=== PATIENT | male | born 1955 | race Caucasian/White ===

== ENCOUNTER → 2016-08-08 | Outpatient (CLI) | payer OTHER ==
[2016-08-08 10:13] LABS: ALBUMIN 3.6 GM/DL (3.2-5.2); ALBUMIN/GLOBULIN RATIO 0.92 (1.00-1.93); ALKALINE PHOSPHATASE 92 U/L (45-117); ALT/SGPT 36 U/L (12-78); ANION GAP 7 MEQ/L (8-16); AST/SGOT 21 U/L (15-37); BILIRUBIN,TOTAL 0.4 MG/DL (0.2-1.0); BLOOD UREA NITROGEN 18 MG/DL (7-18); CARBON DIOXIDE LEVEL 29 MEQ/L (21-32); CHLORIDE LEVEL 106 MEQ/L (98-107); CHOLESTEROL LEVEL 151 MG/DL (<200); CREATININE FOR GFR 0.97 MG/DL (0.70-1.30); GLOMERULAR FILTRATION RATE > 60.0 (>49); GLUCOSE, FASTING 107 MG/DL (80-110); MAGNESIUM LEVEL 1.8 MG/DL (1.8-2.4); POTASSIUM SERUM 4.8 MEQ/L (3.5-5.1); SODIUM LEVEL 142 MEQ/L (136-145); TOTAL PROTEIN 7.5 GM/DL (6.4-8.2); TRIGLYCERIDES LEVEL 216 MG/DL (<150)
== END ==
LOC: M WUC 08:11
PROVIDERS: ATTEND Nurse Practitioner Family
DX: E78.2 Mixed hyperlipidemia (principal); K21.9 Gastro-esophageal reflux disease without esophagitis; E55.9 Vitamin D deficiency, unspecified; I10 Essential (primary) hypertension

== ENCOUNTER → 2017-02-08 | Outpatient (REF) | payer OTHER ==
[~2017-02-08] MED LIST: ASPI81TA85 PO; ATOR80TA59 PO; CEFD1CAP8 PO; CHLO25TA PO; CLOT10TR MT; CORE25TA PO; D 50CAP PO; DRIS50002 PO; FOSI40TA PO; IPRASOL4 NEB; K-TA10TA2 PO; LIPI20TA PO; LISI10TA4 PO; MUCI600T31 PO; MULT1TAB10 PO; NICO14PA TD; OMEP10CASR PO; OMEP20TA PO; PARO40TA3 PO
[2017-02-08 15:24] LABS: BASO % 0.2 % (0.0-1.0); EOS % 0.1 % (0.0-3.0); LARGE UNSTAINED CELL # 0.2 K/mm3 (0.0-0.4); LARGE UNSTAINED CELL % 1.2 % (0.0-4.0); LYMPH # 0.6 K/mm3 (1.5-4.5); LYMPH % 3.4 % (24.0-44.0); MEAN CORPUSCULAR HEMOGLOBIN 32.2 pg (27.0-33.0); MEAN CORPUSCULAR HGB CONC 34.5 g/dl (32.0-36.5); MEAN CORPUSCULAR VOLUME 93.2 fl (80.0-96.0); MONO # 0.7 K/mm3 (0.0-0.8); NEUTROPHILS # 10.8 K/mm3 (1.8-7.7); NEUTROPHILS % 89.1 % (36.0-66.0); PLATELET COUNT, AUTOMATED 166 k/mm3 (150-450); RED CELL DISTRIBUTION WIDTH 13.1 % (11.5-14.5); WHITE BLOOD COUNT 12.1 K/mm3 (4.0-10.0)
[2017-02-11 18:14] LABS: Lyme Disease IgG/IgM Antibodie <0.91 ISR (0.00-0.90); Lyme Disease IgM Ab Quantitati <0.80 index (0.00-0.79)
== END ==
LOC: M SFHCPLAZ 11:28
PROVIDERS: ATTEND Family Medicine
DX: R68.83 Chills (without fever) (principal); M79.1 Myalgia

== ENCOUNTER 2017-02-11 06:34 | Inpatient (IN) | payer OTHER ==
[~2017-02-11] VITALS: Ht 182.9 cm; Wt 86.3 kg
[2017-02-11] VITALS (11 sets, daily range): BP systolic 89–114; BP diastolic 51–70
[2017-02-11] MEDS ORDERED: CORE25TA PO (06:46)
[2017-02-11] MEDS ORDERED: OMEP10CASR PO (06:46)
[2017-02-11] MEDS ORDERED: LIPI20TA PO (06:46)
[2017-02-11] MEDS ORDERED: ASPI81TA85 PO (06:46)
[2017-02-11] MEDS ORDERED: PARO40TA3 PO (06:46)
[2017-02-11] MEDS ORDERED: LISI10TA4 PO (06:46)
[2017-02-11] MEDS ORDERED: NS 1,000 ML IV ONE ×3 (07:30→09:45)
[2017-02-11 07:42] LABS: ADD MANUAL DIFFER YES; MEAN CORPUSCULAR HEMOGLOBIN 31.6 pg (27.0-33.0); MEAN CORPUSCULAR HGB CONC 34.6 g/dl (32.0-36.5); MEAN CORPUSCULAR VOLUME 91.4 fl (80.0-96.0); PLATELET COUNT, AUTOMATED 213 k/mm3 (150-450); RED CELL DISTRIBUTION WIDTH 13.3 % (11.5-14.5)
[2017-02-11 07:56] LABS: ALBUMIN 2.4 GM/DL (3.2-5.2); ALBUMIN/GLOBULIN RATIO 0.43 (1.00-1.93); ALKALINE PHOSPHATASE 162 U/L (45-117); ALT/SGPT 163 U/L (12-78); ANION GAP 23 MEQ/L (8-16); AST/SGOT 186 U/L (15-37); BILIRUBIN,DIRECT 0.1 MG/DL (0.0-0.2); BILIRUBIN,TOTAL 0.4 MG/DL (0.2-1.0); BLOOD UREA NITROGEN 87 MG/DL (7-18); CALCIUM LEVEL 7.1 MG/DL (8.8-10.2); CARBON DIOXIDE LEVEL 13 MEQ/L (21-32); CHLORIDE LEVEL 80 MEQ/L (98-107); FREE T4 1.17 NG/DL (0.76-1.46); GLOMERULAR FILTRATION RATE 5.4 (>49); GLUCOSE, FASTING 110 MG/DL (80-110); MAGNESIUM LEVEL 1.3 MG/DL (1.8-2.4)
[2017-02-11 08:14] LABS: BANDS 7 % (< 11)
[2017-02-11 08:15] LABS: ANISOCYTOSIS 1+
[2017-02-11] MEDS ORDERED: ALBUTEROL SULFATE 2.5 MG/0.5 ML INH NEB SOLN INH ONE (08:15)
[2017-02-11] MEDS ORDERED: IPRATROPIUM 0.5MG/ALBUTEROL 2.5MG INH SOL UD 3ML (DUONEB)(J7620) NEB ONE (08:15)
[2017-02-11] MEDS ORDERED: methylPREDNISolone INJ 125 MG/2 ML VIAL (J2930) IV ONE (08:15)
[2017-02-11 08:19] LABS: SODIUM LEVEL 116 MEQ/L (136-145)
--- NOTE | 2017-02-11 08:21 | REP ---
PORTABLE CHEST, ONE VIEW: HISTORY: SIRS. COMPARISON: 06/12/2014. Increased density is present in the right upper lobe consistent with an infiltrate. The left lung is clear. The heart is normal in size. The pulmonary vasculature is normal in appearance. IMPRESSION: Right upper lobe infiltrate. Signed by Vinny Almendarez MD 02/11/2017 08:27 A
[2017-02-11] MEDS ORDERED: cefTRIAXone SOD 1 GM in D5W MINI-BAG PLUS 50 ML IV ONE (08:30)
[2017-02-11] MEDS ORDERED: AZITHROMYCIN INJ 500 MG, VIAL MATE ADAPTER 1 EACH in D5W 250 ML IV ONE (08:30)
[2017-02-11 09:17] LABS: ABG BASE EXCESS -15.3 (-2.0-2.0); ABG HCO3 9.1 MEQ/L (22.0-26.0); ABG PARTIAL PRESSURE O2 91.8 mmHg (75.0-100.0); ABG STANDARD HCO3 12.8 MEQ/L (22.0-26.0); ABG TOTAL CO2 9.7 MEQ/L (23.0-31.0); ABG pH (ARTERIAL) 7.288 UNITS (7.350-7.450)
[2017-02-11 09:18] LABS: ABG PARTIAL PRESSURE CO2 19.5 mmHg (35.0-45.0)
[2017-02-11] MEDS ORDERED: HYDROCORTISONE 100 MG/2 ML VIAL (J1720) IV ONE (09:30)
[2017-02-11] MEDS ORDERED: VANCOMYCIN HCL 1,000 MG, VIAL MATE ADAPTER 1 EACH in D5W 250 ML IV ONE (09:30)
[2017-02-11] MEDS ORDERED: CLOT10TR MT (09:47)
[2017-02-11] MEDS ORDERED: OMEP20TA PO (09:47)
[2017-02-11] MEDS ORDERED: ATOR80TA59 PO (09:47)
[2017-02-11] MEDS ORDERED: FOSI40TA PO (09:47)
[2017-02-11] MEDS ORDERED: DRIS50002 PO (09:49)
[2017-02-11 10:18] LABS: CREATININE FOR GFR 9.57 MG/DL (0.70-1.30); POTASSIUM SERUM 4.2 MEQ/L (3.5-5.1)
[2017-02-11 10:27] LABS: CALCIUM LEVEL 5.8 MG/DL (8.8-10.2)
[2017-02-11 10:40] LABS: INR 1.33
[2017-02-11] MEDS ORDERED: CALCIUM GLUCONATE 1,000 MG in D5W MINI-BAG PLUS 100 ML IV ONE ×2 (11:00→14:00)
[2017-02-11] MEDS: PANTOPRAZOLE 40MG INJ (PROTONIX) (C9113) IV SCH (11:54)
[2017-02-11] MEDS ORDERED: SODIUM BICARBONATE 100 MEQ in D5W 1,000 ML IV SCH (12:00)
[2017-02-11 13:01] LABS: ALBUMIN/GLOBULIN RATIO 0.53 (1.00-1.93); ALKALINE PHOSPHATASE 140 U/L (45-117); ALT/SGPT 140 U/L (12-78); ANION GAP 20 MEQ/L (8-16); AST/SGOT 169 U/L (15-37); BILIRUBIN,TOTAL 0.3 MG/DL (0.2-1.0); BLOOD UREA NITROGEN 83 MG/DL (7-18); CALCIUM LEVEL 6.1 MG/DL (8.8-10.2); CARBON DIOXIDE LEVEL 11 MEQ/L (21-32); CHLORIDE LEVEL 91 MEQ/L (98-107); CREATININE FOR GFR 9.22 MG/DL (0.70-1.30); GLOMERULAR FILTRATION RATE 6.2 (>49); GLUCOSE, FASTING 124 MG/DL (80-110); MAGNESIUM LEVEL 1.2 MG/DL (1.8-2.4); POTASSIUM SERUM 4.1 MEQ/L (3.5-5.1); SODIUM LEVEL 122 MEQ/L (136-145); TOTAL PROTEIN 5.8 GM/DL (6.4-8.2)
[2017-02-11 13:38] LABS: BASO % 0.1 % (0.0-1.0); EOS % 0.1 % (0.0-3.0); LARGE UNSTAINED CELL % 0.6 % (0.0-4.0); LYMPH # 0.2 K/mm3 (1.5-4.5); LYMPH % 2.4 % (24.0-44.0); MEAN CORPUSCULAR HEMOGLOBIN 31.8 pg (27.0-33.0); MEAN CORPUSCULAR HGB CONC 34.8 g/dl (32.0-36.5); MEAN CORPUSCULAR VOLUME 91.6 fl (80.0-96.0); MONO # 0.2 K/mm3 (0.0-0.8); MONO % 2.2 % (0.0-5.0); NEUTROPHILS % 94.5 % (36.0-66.0); PLATELET COUNT, AUTOMATED 187 k/mm3 (150-450); RED CELL DISTRIBUTION WIDTH 13.4 % (11.5-14.5); WHITE BLOOD COUNT 7.4 K/mm3 (4.0-10.0)
[2017-02-11 13:54] LABS: INR 1.39
[2017-02-11] MEDS: HEPARIN SOD (PORCINE) 5000 UNITS/ML VIAL SC SCH ×2 (13:59→21:23)
[2017-02-11] MEDS ORDERED: MAG SULF 1GM/100ML (MAG RUN) 1 GM in APPROPRIATE DILUENT 1 EA IV ONE ×2 (15:00→22:00)
--- NOTE | 2017-02-11 15:27 | HPE ---
DATE OF ADMISSION: 02/11/2017 HISTORY OF PRESENT ILLNESS: This is a 61-year-old patient of Dr. Castanon who presents to [facility] ([facility]) Emergency Room (ER) with a 1-week history of worsening generalized myalgia, fatigue, fever, chills, rigors, anorexia, and intermittent diarrhea. Patient was seen at the clinic by Dr. Castanon on 02/08/2017 and was started on clotrimazole jazzy for presumed thrush and then subsequently fluconazole oral. The patient has had no sick contacts. No foreign travel. Up to a week ago the patient was in his normal health. Denies any abdominal pain. No urinary symptoms. He states he feels mildly dyspneic with exertion but minimal nonproductive cough. While in the emergency department (ED) the patient received 3 liters of normal saline secondary to systolic blood pressure in the 70s to low 80s with transient improvement of his blood pressure. The patient had been taking his routine medications up until the day of admission, which includes fosinopril 40 daily, and had been using ibuprofen 600 twice a day. The notes she had been pushing fluids, but he had minimal input, and he had marked reduced urine output over the last 5 days. PAST MEDICAL HISTORY: Hospitalizations: None recently. Illnesses: 1. Coronary artery disease (CAD), status post left anterior descending (LAD) stent in 1996. 2. Hypertension. 3. Hyperlipidemia. 4. Anxiety disorder. 5. Nicotine addiction, Smokes a pack and a half a day x20 years. 6. Gastroesophageal reflux disease (GERD). 7. Obesity. SURGERIES: 1. As above. 2. Teeth extraction. MEDICATIONS: Per ECW and confirmed with patient. - omega-3 at 1000 daily - multivitamin daily - vitamin D 1000 daily - fosinopril 40 daily - aspirin 81 daily - Chantix one twice a day - Drisdol 50,000 every 2 weeks - carvedilol 25 twice a day - Protonix 40 daily - omeprazole 20 twice a day - atorvastatin 80 daily - ibuprofen 600 twice a day - magnesium 500 daily ALLERGIES: No known drug allergies. SOCIAL HISTORY: Patient lives with his , who is his healthcare proxy. He is a full code. FAMILY HISTORY: Father of coronary disease at 70. Mother from breast cancer at 73. REVIEW OF SYSTEMS: CONSTITUTIONAL: No weight loss. Vision: No diplopia, scotoma. ENT: No epistaxis. No hoarseness. CARDIOVASCULAR: No chest pain nor palpitations. PULMONARY: Mild dyspnea. No wheeze. GASTROINTESTINAL: Diarrhea as above. No melena or odynophagia. GENITOURINARY: No dysuria, or hematuria. DERMATOLOGIC: No rash. ENDOCRINE: No polydipsia or polyuria. RHEUMATOLOGIC: Generalized myalgia. No specific joint pain. NEUROLOGIC: No paresthesia or weakness. PHYSICAL EXAMINATION: 98.8, 78, 18, 90/55, and 95% on room air. HEENT: Head is normocephalic, atraumatic. Ears: Tympanic membranes (TMs) normal. Eyes: Clear conjunctivae. Nose without discharge. NECK: Without adenopathy or thyromegaly. CARDIOVASCULAR: Regular heart rhythm without murmurs, rubs, gallops. RESPIRATORY: Decreased breath sounds with coarse rales, right upper lobe. Decreased breath sounds in general bilateral. Minimal end-expiratory wheeze. ABDOMEN: Nontender. Mild distention. Positive bowel sounds. No hepatosplenomegaly. EXTREMITIES: Without cyanosis, clubbing, or edema. NEUROLOGIC: Nonfocal. INVESTIGATIONS: Show WBC of 11.0, hemoglobin 13.0, platelets of 213. Sodium initially 116, potassium 4.0, chloride 80, bicarbonate 14, BUN 87, creatinine 10.4, glucose of 110, calcium 7.1 with an albumin of 2.4, magnesium 1.3. Total bilirubin 0.4, AST and ALT of 186 and 163, respectively, alkaline phosphatase 162. CPK of 1667, index of 1.4. Troponin I of less than 0.04. BNP of 178. TSH 1.4, free T4 of 1.2. PT of 17, APTT of 39. Chest x-ray shows large segmental right upper lobe infiltrate with mild hyperinflation. Repeat sodium after 3 liters normal saline was 120 with potassium of 4.2, bicarbonate of 11, BUN and creatinine of 90 and 9.6, and calcium of 5.8. Urinalysis (UA): 2+ protein, 2+ blood, osmolality 287, sediment 24. ASSESSMENT: This is a 61-year-old white male presenting with shock favoring hypovolemic with combined septic with secondary acute kidney injury, stage III, secondary to acute tubular necrosis (ATN) with also concomitant metabolic acidosis and hyponatremia favoring secondary to hypotonic, hypovolemic hyponatremia, although his urine osmolality is suggestive of possible concomitant syndrome of inappropriate secretion of antidiuretic hormone (SIADH), especially given his right upper segmental pneumonia and longstanding smoking history. Most likely ATN related to hypovolemia, angiotensin-converting enzyme (SYMONE) and nonsteroidal anti-inflammatory drug (NSAID) use and rhabdomyolysis. Baseline creatinine from July 2016 was 1.0. Additionally, patient has persistent diarrhea with foul-smelling stools highly suggestive of community acquired Clostridium (C) difficile. PLAN: 1. Pulmonary. The patient was admitted to [facility] intensive care unit (ICU) bed. He was empirically treated for community acquired pneumonia with ceftriaxone 1 gram twice a day, azithromycin 500 IV daily, and empiric vancomycin 1 gram times one. Blood cultures times two were drawn. A sputum culture was ordered. Patient was placed on DuoNeb every 4 with titration of oxygen to keep saturations greater than 90%. The case was discussed with Dr. Lin, who agreed with the plan of care. 2. Renal. The case was discussed with Dr. Stringer, who agreed with the plan of care that the patient's sodium was corrected adequately with 3 liters of normal saline to 120. Now will change to D5W with 2 amps of bicarbonate and will follow sodium closely for planned correction of 0.5 an hour. Will correct metabolic acidosis with bicarbonate. I gave 1000 mg of calcium gluconate for his hypokalemia. 3. Cardiovascular. The patient's cardiac enzymes are unremarkable. There are no signs of failure. No anginal pain. Will follow serial enzymes and check baseline EKG. Holding baseline SYMONE inhibitor, beta carl, and atorvastatin given acute problems, specifically the statin because of elevated aminotransferase. 4. Infectious disease (ID). Antibiotics as above. Gastrointestinal (GI) panel is pending. Will add by mouth vancomycin if positive for C. difficile. Blood and urine culture have been drawn. 5. GI. Will continue home dose proton pump inhibitor (PPI). The GI panel as above. 6. Deep vein thrombosis (DVT) prophylaxis. Was placed on heparin 5000 subcutaneous three times a day with sequential compression devices and thromboembolic deterrents (TEDs). Case was discussed in detail with the patient's , who is his healthcare proxy, at bedside. She agreed with the plan of care also. Will keep her abreast of any changes. She reaffirmed that he is a FULL CODE. ADDENDUM: 02/11/2017 Please add down in assessment and plan: Pulmonary: The patient was treated with methylprednisolone given severe pneumonia to attempt to reduce production, as per [facility] general article from 09/16/2014. After 3 liters normal saline, the patient's pressure continued to run in the 80s and the case was discussed with Dr. Lin, who felt that if it continues to run low to consider central line placement for pressor support.
--- NOTE | 2017-02-11 16:21 | ECGEPIP ---
Stationary ECG Study 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
[2017-02-11] MEDS: IPRATROPIUM 0.5MG/ALBUTEROL 2.5MG INH SOL UD 3ML (DUONEB)(J7620) NEB SCH ×2 (16:25→19:33)
[2017-02-11 16:56] LABS: ALBUMIN/GLOBULIN RATIO 0.51 (1.00-1.93); BILIRUBIN,TOTAL 0.2 MG/DL (0.2-1.0); CALCIUM LEVEL 6.4 MG/DL (8.8-10.2); CREATININE FOR GFR 8.06 MG/DL (0.70-1.30); GLOMERULAR FILTRATION RATE 7.3 (>49); POTASSIUM SERUM 3.6 MEQ/L (3.5-5.1); TOTAL PROTEIN 5.9 GM/DL (6.4-8.2)
[2017-02-11 17:12] LABS: MAGNESIUM LEVEL 1.6 MG/DL (1.8-2.4)
[2017-02-11] MEDS ORDERED: D5W IV SCH (18:30)
[2017-02-11] MEDS ORDERED: POTASSIUM CHLORIDE IV SCH (18:30)
[2017-02-11] MEDS ORDERED: SODIUM BICARBONATE IV SCH (18:30)
--- NOTE | 2017-02-11 19:04 | ECGEPIP ---
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
[2017-02-11] MEDS: cefTRIAXone SOD 1 GM in D5W MINI-BAG PLUS 50 ML IV SCH (19:31)
[2017-02-11 20:41] LABS: ALBUMIN 1.9 GM/DL (3.2-5.2); ALBUMIN/GLOBULIN RATIO 0.41 (1.00-1.93); BILIRUBIN,TOTAL 0.2 MG/DL (0.2-1.0); CALCIUM LEVEL 6.6 MG/DL (8.8-10.2); CREATININE FOR GFR 6.63 MG/DL (0.70-1.30); GLOMERULAR FILTRATION RATE 9.1 (>49); MAGNESIUM LEVEL 1.6 MG/DL (1.8-2.4); PHOSPHORUS LEVEL 7.8 MG/DL (2.5-4.9); POTASSIUM SERUM 3.2 MEQ/L (3.5-5.1); TOTAL PROTEIN 6.5 GM/DL (6.4-8.2)
--- NOTE | 2017-02-11 20:43 | CR ---
DATE OF CONSULTATION: 02/11/2017 REQUESTING PHYSICIAN: Jayant Calderon MD. REASON FOR CONSULTATION: Severe hyponatremia, acute renal failure and severe metabolic acidosis. HISTORY OF PRESENT ILLNESS: Mr. Maria is a 61-year-old gentleman who is admitted to [facility] this morning due to generalized weakness and not feeling well. Apparently he has diarrhea, nausea and shortness of breath for the last few days. He was initially treated as an outpatient; however, did not improve. He was brought to the emergency room today where he was found to have severe derangement in his lab work. His sodium level is down to 116 on admission and BUN 87 and creatinine 10.4. He was noticed to have a large infiltrate in right upper lobe and the patient was also hypotensive in the emergency room and required fluid boluses. He has been given two liters of normal saline. Nephrology consultation was requested and the patient seen in the emergency room. PAST MEDICAL AND SURGICAL HISTORY: Significant for: 1. History of hypertension. 2. Hyperlipidemia. 3. History of gastroesophageal reflux disease. 4. History of coronary artery disease, status post angioplasty with stent. 5. History of smoking for more than 20 years. 6. Vitamin D deficiency. 7. Hyperlipidemia. MEDICATIONS Home medications included: - multivitamin one tablet daily - omega 3 1000 mg daily - vitamin D 1000 units daily - fosinopril 40 mg daily - aspirin 81 mg daily - vitamin D 50,000 units every two weeks - Coreg 25 mg twice a day - Protonix 40 mg daily - atorvastatin 80 mg daily - ibuprofen 600 mg twice a day - magnesium 500 mg daily ALLERGIES: The patient has no known drug allergies. PERSONAL AND SOCIAL HISTORY: The patient is and lives with his . He smokes about half a pack of cigarettes daily. FAMILY HISTORY: Father of coronary artery disease at age 70. Mother with breast cancer at 73. There is no family history for end-stage renal disease. REVIEW OF SYSTEMS: The patient has been feeling very weak. Ears, nose and throat are unremarkable other than dry mouth. He denies any nosebleed. Cardiovascular system is significant for shortness of breath. He denies any chest pain. Respiratory system is significant for shortness of breath. There is no hemoptysis or pleuritic type of chest pain. Chest x-ray showed a large right upper lobe consolidation. Gastrointestinal (GI) system is significant for vomiting, diarrhea and poor oral intake for the last several days. Genitourinary () system is significant for decreased urine output. Endocrine system is significant for hyperlipidemia and vitamin D deficiency. There is no history of diabetes or thyroid problems. Musculoskeletal system is significant for back pain and arthritis. He has been taking ibuprofen for last few days. Psychosocial system negative for depression or anxiety. Neurological system is negative for seizures or stroke. Skin is negative for rash or ulcers. PHYSICAL EXAMINATION: GENERAL: This is acutely ill looking patient who is lying in the stretcher. VITAL SIGNS: Blood pressure is 84/50 mmHg and heart rate 72 per minute. Temperature 98.7 degrees Fahrenheit and respiratory rate is 24 per minute. HEENT: Head is atraumatic. Oral mucosa is dry. Pupils equal and reactive to light and sclerae are anicteric. NECK: Neck is supple and without jugular venous distention (JVD) or thyroid enlargement. CARDIORESPIRATORY: Heart sounds are regular and lungs with diminished breath sounds on right side. ABDOMEN: Soft and minimally tender. Bowel sounds are present. EXTREMITIES: Have no cyanosis or clubbing. SKIN: Dry with decreased skin turgor and no rash or ulcers. NEUROLOGIC: He is awake, alert and oriented times three. LABORATORY DATA: Sodium 116, potassium 4.0, chloride 80, CO2 13, BUN 87 and creatinine 10.40. Lactic acid 1.1 and calcium 7.1. AST 186, ALT 163, CPK 1667, and troponin less than 0.02. Total protein 8.0 and albumin 2.4. Urinalysis showed 2+ protein and 2+ blood with cloudy appearance. Blood gas showed a pH of 7.28, pCO2 19.5, pO2 91.8 and bicarb 12.8. PROBLEMS: 1. Acute renal failure most likely due to dehydration. Apparently the patient has been sick for several days. He was also taking angiotension-converting enzyme (SYMONE) inhibitor at home which has now been stopped. I agree with stopping all antihypertensives and diuretics. At present he will need to be hydrated with caution due to severe hyponatremia. He has already received two liters of normal saline. I have advised to check his electrolytes every four hours. We will continue with intravenous (IV) fluid hydration and monitoring of kidney function. 2. Severe hyponatremia, most likely related to vomiting and diarrhea. His sodium level has already improved to 120. We will start with [id number] IV fluids including bicarbonate and continue to monitor his electrolytes every few hours. Depending upon his electrolytes, we will adjust the IV fluids. Will try to correct his sodium only about 6-8 mEq in next 12 hours. 3. Hypotension. This related to dehydration and the patient will need IV fluid. We will have the use caution due to his severe hyponatremia. We will continue at this point with sodium bicarbonate drip containing 100 mEq of sodium bicarb at 200 mL per hour. 4. Metabolic acidosis. This is related to acute renal failure and diarrhea. The patient has been started on sodium bicarbonate drip. We will monitor his electrolytes. I thank you for involving me in the care of Mr. Maria. I will follow him along with you.
[2017-02-11] MEDS ORDERED: POTASSIUM CHLORIDE 10 MEQ SR TABLET PO ONE (22:00)
[2017-02-12 00:55] LABS: ALBUMIN/GLOBULIN RATIO 0.39 (1.00-1.93); BILIRUBIN,TOTAL 0.2 MG/DL (0.2-1.0); CALCIUM LEVEL 6.9 MG/DL (8.8-10.2); CREATININE FOR GFR 5.44 MG/DL (0.70-1.30); GLOMERULAR FILTRATION RATE 11.5 (>49); MAGNESIUM LEVEL 1.8 MG/DL (1.8-2.4); PHOSPHORUS LEVEL 6.8 MG/DL (2.5-4.9); POTASSIUM SERUM 3.4 MEQ/L (3.5-5.1); TOTAL PROTEIN 7.1 GM/DL (6.4-8.2)
[2017-02-12] MEDS: IPRATROPIUM 0.5MG/ALBUTEROL 2.5MG INH SOL UD 3ML (DUONEB)(J7620) NEB SCH ×4 (01:16→19:45)
[2017-02-12] MEDS ORDERED: POTASSIUM CHLORIDE INJ 20 MEQ in D5W 1,000 ML IV SCH (01:30)
[2017-02-12] MEDS: KCL 20MEQ IN D5W 1000ML 1,000 ML IV SCH ×4 (02:32→23:20)
[2017-02-12 04:49] LABS: BASO % 0.1 % (0.0-1.0); EOS % 0.1 % (0.0-3.0); LARGE UNSTAINED CELL # 0.1 K/mm3 (0.0-0.4); LARGE UNSTAINED CELL % 0.7 % (0.0-4.0); LYMPH # 0.4 K/mm3 (1.5-4.5); LYMPH % 2.4 % (24.0-44.0); MEAN CORPUSCULAR HEMOGLOBIN 31.4 pg (27.0-33.0); MEAN CORPUSCULAR HGB CONC 34.9 g/dl (32.0-36.5); MONO # 0.4 K/mm3 (0.0-0.8); MONO % 3.2 % (0.0-5.0); NEUTROPHILS # 10.6 K/mm3 (1.8-7.7); NEUTROPHILS % 93.5 % (36.0-66.0); PLATELET COUNT, AUTOMATED 226 k/mm3 (150-450); RED CELL DISTRIBUTION WIDTH 13.4 % (11.5-14.5); WHITE BLOOD COUNT 11.4 K/mm3 (4.0-10.0)
[2017-02-12 05:07] LABS: ALBUMIN 2.1 GM/DL (3.2-5.2); ALKALINE PHOSPHATASE 138 U/L (45-117); ALT/SGPT 169 U/L (12-78); AST/SGOT 196 U/L (15-37); BILIRUBIN,TOTAL 0.3 MG/DL (0.2-1.0); BLOOD UREA NITROGEN 75 MG/DL (7-18); CALCIUM LEVEL 7.3 MG/DL (8.8-10.2); CARBON DIOXIDE LEVEL 17 MEQ/L (21-32); CHLORIDE LEVEL 97 MEQ/L (98-107); CREATININE FOR GFR 4.04 MG/DL (0.70-1.30); GLUCOSE, FASTING 195 MG/DL (80-110); MAGNESIUM LEVEL 2.1 MG/DL (1.8-2.4); POTASSIUM SERUM 3.5 MEQ/L (3.5-5.1); SODIUM LEVEL 127 MEQ/L (136-145); TOTAL PROTEIN 7.1 GM/DL (6.4-8.2)
[2017-02-12] MEDS: HEPARIN SOD (PORCINE) 5000 UNITS/ML VIAL SC SCH ×2 (06:14→14:36)
[2017-02-12 06:57] LABS: ANION GAP 13 MEQ/L (8-16)
[2017-02-12 06:59] LABS: ALBUMIN/GLOBULIN RATIO 0.42 (1.00-1.93)
[2017-02-12 08:00] VITALS: BP 135/63
[2017-02-12] MEDS: cefTRIAXone SOD 1 GM in D5W MINI-BAG PLUS 50 ML IV SCH ×2 (08:26→20:11)
[2017-02-12] MEDS ORDERED: PANTOPRAZOLE 40MG INJ (PROTONIX) (C9113) IV SCH (09:00)
[2017-02-12] MEDS: PANTOPRAZOLE 40MG INJ (PROTONIX) (C9113) IV SCH (10:00)
[2017-02-12] MEDS: AZITHROMYCIN INJ 500 MG, VIAL MATE ADAPTER 1 EACH in D5W 250 ML IV SCH (10:00)
[2017-02-12 10:37] LABS: ALBUMIN 2.2 GM/DL (3.2-5.2); CALCIUM LEVEL 6.9 MG/DL (8.8-10.2); CREATININE FOR GFR 2.78 MG/DL (0.70-1.30); GLOMERULAR FILTRATION RATE 24.9 (>49); MAGNESIUM LEVEL 2.1 MG/DL (1.8-2.4); PHOSPHORUS LEVEL 3.8 MG/DL (2.5-4.9); POTASSIUM SERUM 3.7 MEQ/L (3.5-5.1)
[2017-02-12 12:33] VITALS: BP 146/68
[2017-02-12 16:17] VITALS: BP 135/63
--- NOTE | 2017-02-12 17:04 | IPNPDOC ---
Subjective Date Seen The patient was seen on 02/12/17. Subjective Chief Complaint/HPI The patient is a 61-year-old male admitted with a reason for visit of Acute Renal Failure,Hyponatremia,Pneumonia. Events since last encounter tolerating regular diet, improved dyspnea-still no cough, decreased diarrhea, agitated per 2 not on Paxil/nicotine Constitutional: Denies: Chills Eyes: Denies: Pain ENT: Denies: Head Aches Skin: Denies: Rash Pulmonary: Denies: Dyspnea Cardiovascular: Denies: Chest Pain, Palpitations Gastrointestinal: Denies: Nausea, Vomiting Genitourinary: Denies: Dysuria Musculoskeletal: Denies: Neck Pain Neurological: Denies: Weakness Objective Physical Examination General Exam: Positive: Alert Eye Exam: Positive: PERRLA Neck Exam: Negative: JVD Chest Exam: Negative: Clear to auscultation Heart Exam: Positive: Rate Normal Telemetry: Positive: No significant arrhythmia Abdomen Exam: Positive: Normal bowel sounds Extremity Exam: Negative: Edema Skin Exam: Negative: Rash Psych Exam: Positive: Mental status NL Other physical findings decreased BS aram RUL Assessment /Plan Problems (1) Pneumonia Status: Acute Response to Treatment: Improving Problem Text: D2 ceftriaxone/azithro/vanco presuming CAP 02/11 afebrile, WBC 11.4 (11.0)-? steroid effect, improved dyspnea 02/11 CXR segmental RUL infiltrate 02/11 BCX NG x 2 02/11 inf A/B (2) Acute renal failure Status: Acute Response to Treatment: Improving Problem Text: favor 2 ATN 2 hypotension/ACEI/NSAID/rhabdo (2 infection/rigors) use 02/12 68/2.8, K 3.6 02/11 -presenting 87/10.4 02/11 UCX NG 07/2016 baseline cr 1.0 (3) Hyponatremia Status: Acute Response to Treatment: Improving Problem Text: favor hypotonic hypovolemic +/- SIADH ( ? obstructive lung lesion causing RUL PN aram in long-standing smoker)-plan CT chest s/c when renal function normalizes +/- biopsy prior to dc 02/12 1000 128-appropriate rate of correction c bicarb drip 02/11 700 116 appreciate Nephro input (4) Rhabdomyolysis Status: Acute Response to Treatment: Improving Problem Text: improved c hydration 02/12 805 (T-I 0.34-favor 2 rhabdo-peak was 0.59) 02/11 CPK 1667 (5) Diarrhea Status: Acute Response to Treatment: Improving Problem Text: ? viral enteritis vs fluconazole effect 02/11 - GI panel (6) CAD (coronary artery disease) Status: Chronic Response to Treatment: Stable Problem Text: no active angina/chf statin held 2 increased lfts 02/11/17 EKG 12:06 NSR 76 s repol abn (7) Hypertension Status: Chronic Response to Treatment: Stable Problem Text: 02/12 started bisoprolol 2.5 BID given CAD (and bronchospasm by PE , probably baseline COPD) fosinopril 40/carved 25 BID held 2 hypotension (8) Nicotine addiction Status: Chronic Problem Text: 02/12 + 14 mg patch 1 1/2 PPD x ~20Y (9) ALISHA (generalized anxiety disorder) Status: Chronic Problem Text: restart HD paroxetine 40 + lorazepam 0.5 TID prn given agitation (2 infection, steroids, off SSRI/ nicotine) (10) DVT prophylaxis Problem Text: 02/12 heparin held 2 ambulating around room and hemorrhoidal bleeding c diarrhea Plan/VTE VTE Prophylaxis Ordered?: No VTE Exclusion Pharmacological: Active Bleeding VS, I&O, 24H, Fishbone Vital Signs/I&O Vital Signs Date Time Temp Pulse Resp B/P (MAP) Pulse Ox O2 Delivery O2 Flow Rate FiO2 02/12/17 12:33 98.0 72 18 146/68 (94) 92 Room Air 02/11/17 10:40 2.0 I&O- Last 24 Hours up to 6 AM 02/12/17 06:00 Intake Total 6415 ml Output Total 6680 ml Balance -265 ml Laboratory Data 24H LABS Laboratory Tests 2 02/11/17 17:45: Troponin I 0.19#H 02/11/17 19:55: Anion Gap 17H, Glomerular Filtration Rate 9.1L, Blood Urea Nitrogen 85H, Creatinine 6.63H, Sodium Level 122L, Potassium Level 3.2L, Chloride Level 91L, Carbon Dioxide Level 14L, Calcium Level 6.6L, Phosphorus Level 7.8H, Aspartate Amino Transf (AST/SGOT) 171H, Alanine Aminotransferase (ALT/SGPT) 145H, Lactate Dehydrogenase 325H, Total Creatine Kinase 1320H, Alkaline Phosphatase 140H, Total Bilirubin 0.2, Triglycerides Level 280H, Cholesterol Level 74, Total Protein 6.5, Albumin 1.9L, Magnesium Level 1.6L, Albumin/Globulin Ratio 0.41L 02/11/17 23:55: Troponin I 0.59#H, Anion Gap 16, Glomerular Filtration Rate 11.5L, Blood Urea Nitrogen 78H, Creatinine 5.44H, Sodium Level 126L, Potassium Level 3.4L, Chloride Level 96L, Carbon Dioxide Level 14L, Calcium Level 6.9L, Phosphorus Level 6.8H, Aspartate Amino Transf (AST/SGOT) 191H, Alanine Aminotransferase ( ALT/SGPT) 162H, Lactate Dehydrogenase 327H, Total Creatine Kinase 1330H, Alkaline Phosphatase 139H, Total Bilirubin 0.2, Triglycerides Level 275H, Cholesterol Level 76, Total Protein 7.1, Albumin 2.0L, Magnesium Level 1.8, Albumin/Globulin Ratio 0.39L 02/12/17 04:25: Troponin I 0.55H, Anion Gap 13, Blood Urea Nitrogen 75H, Creatinine 4.04H, Sodium Level 127L, Potassium Level 3.5, Chloride Level 97L, Carbon Dioxide Level 17L, Calcium Level 7.3L, Aspartate Amino Transf (AST/SGOT) 196H, Alanine Aminotransferase (ALT/SGPT) 169H, Total Creatine Kinase 1221H, Alkaline Phosphatase 138H, Total Bilirubin 0.3, Total Protein 7.1, Albumin 2.1L, Magnesium Level 2.1, Albumin/Globulin Ratio 0.42L, White Blood Count 11.4H, Red Blood Count 3.92L, Hemoglobin 12.3L, Hematocrit 35.3L, Mean Corpuscular Volume 90.0, Mean Corpuscular Hemoglobin 31.4, Mean Corpuscular Hemoglobin Concent 34.9 , Red Cell Distribution Width 13.4, Platelet Count 226, Neutrophils (%) (Auto) 93.5H, Lymphocytes (%) (Auto) 2.4L, Monocytes (%) (Auto) 3.2, Eosinophils (%) ( Auto) 0.1, Basophils (%) (Auto) 0.1, Neutrophils # (Auto) 10.6H, Lymphocytes # ( Auto) 0.4L, Monocytes # (Auto) 0.4, Eosinophils # (Auto) 0.0, Basophils # (Auto ) 0.0, Large Unclassified Cells % 0.7, Large Unclassified Cells # 0.1, Creatine Kinase MB 22.7H, Creatine Kinase MB Relative Index 1.85 02/12/17 09:58: Blood Urea Nitrogen 69H, Creatinine 2.78H, Sodium Level 128L, Potassium Level 3.7, Chloride Level 99, Carbon Dioxide Level 16L, Anion Gap 13, Glomerular Filtration Rate 24.9L, Calcium Level 6.9L, Phosphorus Level 3.8#, Magnesium Level 2.1, Albumin 2.2L 02/12/17 13:50: Total Creatine Kinase 805H, Creatine Kinase MB 14.6H, Creatine Kinase MB Relative Index 1.81, Troponin I 0.34#H CBC/BMP Laboratory Tests 02/11/17 19:55 Calcium Level 6.6 L, Phosphorus Level 7.8 H, Aspartate Amino Transf (AST/SGOT) 171 H, Alanine Aminotransferase (ALT/SGPT) 145 H, Lactate Dehydrogenase 325 H, Total Creatine Kinase 1320 H, Alkaline Phosphatase 140 H, Total Bilirubin 0.2, Triglycerides Level 280 H, Cholesterol Level 74, Total Protein 6.5, Albumin 1.9 L 02/11/17 23:55 Calcium Level 6.9 L, Phosphorus Level 6.8 H, Aspartate Amino Transf (AST/SGOT) 191 H, Alanine Aminotransferase (ALT/SGPT) 162 H, Lactate Dehydrogenase 327 H, Total Creatine Kinase 1330 H, Alkaline Phosphatase 139 H, Total Bilirubin 0.2, Triglycerides Level 275 H, Cholesterol Level 76, Total Protein 7.1, Albumin 2.0 L 02/12/17 04:25 Calcium Level 7.3 L, Aspartate Amino Transf (AST/SGOT) 196 H, Alanine Aminotransferase (ALT/SGPT) 169 H, Total Creatine Kinase 1221 H, Alkaline Phosphatase 138 H, Total Bilirubin 0.3, Total Protein 7.1, Albumin 2.1 L, Red Blood Count 3.92 L, Mean Corpuscular Volume 90.0, Mean Corpuscular Hemoglobin 31.4, Mean Corpuscular Hemoglobin Concent 34.9, Red Cell Distribution Width 13.4 , Neutrophils (%) (Auto) 93.5 H, Lymphocytes (%) (Auto) 2.4 L, Monocytes (%) ( Auto) 3.2, Eosinophils (%) (Auto) 0.1, Basophils (%) (Auto) 0.1, Neutrophils # ( Auto) 10.6 H, Lymphocytes # (Auto) 0.4 L, Monocytes # (Auto) 0.4, Eosinophils # (Auto) 0.0, Basophils # (Auto) 0.0 02/12/17 09:58 Anion Gap 13 Microbiology Microbiology 02/11/17 Blood Culture - Preliminary, Resulted No growth after 24 hours . All specim... 02/11/17 Blood Culture - Preliminary, Resulted No growth after 24 hours . All specim... 02/11/17 Gastrointestinal Tract Panel (PCR) - Final, Complete 02/11/17 Influenza Virus Type A Antigen - Final, Complete 02/11/17 Influenza Virus Type B Antigen - Final, Complete 02/11/17 Urine Culture - Final, Complete Jayant Calderon M.D. Feb 12, 2017 17:04
[2017-02-12] MEDS ORDERED: ACETAMINOPHEN TAB 650MG DOSE (2X325MG) PO PRN (17:45)
[2017-02-12] MEDS: methylPREDNISolone INJ 125 MG/2 ML VIAL (J2930) IV SCH (17:50)
[2017-02-12] MEDS: PARoxetine 20 MG TAB PO SCH (17:51)
[2017-02-12] MEDS: NICOTINE 14 MG/24 HR TRANSDERMAL TD SCH (17:51)
[2017-02-12 19:45] VITALS: O2SAT 93
[2017-02-12 20:00] VITALS: BP 155/72
[2017-02-12] MEDS: LORazepam 0.5 MG TAB PO PRN (20:11)
[2017-02-12] MEDS: BISOPROLOL FUM 2.5 MG PER 1/2TAB PO SCH (20:11)
[2017-02-12 20:47] LABS: ALBUMIN 2.3 GM/DL (3.2-5.2); CALCIUM LEVEL 7.9 MG/DL (8.8-10.2); CREATININE FOR GFR 1.58 MG/DL (0.70-1.30); GLOMERULAR FILTRATION RATE 47.7 (>49); PHOSPHORUS LEVEL 2.8 MG/DL (2.5-4.9)
--- NOTE | 2017-02-12 21:50 | IPN ---
DATE: 02/12/2017 SUBJECTIVE: Mr. Maria is seen this morning on his bedside in intensive care unit. He is feeling much better today and is sitting at the edge of bed at the time of my visit. He reports improved diarrhea and denies any nausea or vomiting. He is tolerating oral intake well. He has no dyspnea or chest pain. He had massive urine output since yesterday and we are continuing with intravenous (IV) fluid due to severe hyponatremia and renal failure. The patient is also being treated for large infiltrate in the right upper lobe. He is felt to have a mass in the right lung. PHYSICAL EXAMINATION: Temperature 98.7 degrees Fahrenheit, heart rate 70 per minute and respiratory rate 20 per minute. Blood pressure 114/70 mmHg and oxygen saturation 93% on room air. Intake and output records from yesterday showed total intake 5480 and output 4255 mL. His head is atraumatic. Neck is supple and without jugular venous distention (JVD) or thyroid enlargement. Heart sounds are regular and lungs with diminished breath sounds on the right side. Ears, nose and throat are unremarkable. Abdomen soft and nontender and bowel sounds are normal. There is no palpable organomegaly. Extremities have no cyanosis or clubbing. Skin has no rash or ulcers. Neurologically he is awake, alert and oriented times three. LABORATORY DATA: Today's labs show WBC count 11.4, hemoglobin 12.3 and hematocrit 35.3. Platelets 226. Sodium 127, potassium 3.5, CO2 17, BUN 74 and creatinine 4.04. Glucose 195 and calcium 7.3. His AST is 196, ALT 169, CPK is down to 1221 and a troponin is 0.59 and 0.55. PROBLEMS: 1. Acute renal failure. This was all related to dehydration caused by recurrent diarrhea and vomiting. His kidney function is improving nicely with IV fluid hydration. His oral intake has also improved which he is tolerating well. At present we do have to continue with IV fluid due to his hyponatremia issue. 2. Hyponatremia. His sodium level improved from 116 on admission to 126 last night. At about midnight we had changed his IV fluid to dextrose 5% in water (D5W) and will continue with the same. His electrolytes will be repeated in few hours. 3. Hypokalemia. Potassium level has improved and the patient continues to receive potassium supplement in IV fluid. He was also given oral potassium supplement. 4. Metabolic acidosis. Acidosis has improved significantly. Currently sodium bicarbonate infusion has been stopped due to rapid improvement in his sodium level. We will continue to monitor as the patient is now asymptomatic and feeling much better. I feel that his metabolic acidosis will correct by itself as his kidney function is now improving and gastrointestinal (GI) symptoms have almost resolved. 5. Elevated creatine phosphokinase (CPK) and troponin. Most likely his CPK is elevated due to acute renal failure and dehydration. He has mild elevation in troponin which is also probably related to acute kidney injury. He does not have any symptoms of coronary artery disease at present. We will continue to monitor. 6. Right upper lung pneumonia with possible lung mass. At present the patient is being treated with azithromycin and Rocephin. Once his kidney function improves, then CT scan of chest with IV contrast will be appropriate. We will wait for his kidneys to improve. 7. History of depression. I suggest to continue with his chronic antidepressant. I do not feel that his hyponatremia is related to antidepressant use as he had multiple other reasons for hyponatremia and it is already improving.
[2017-02-12 22:30] VITALS: BP 122/68
[2017-02-13] MEDS: IPRATROPIUM 0.5MG/ALBUTEROL 2.5MG INH SOL UD 3ML (DUONEB)(J7620) NEB SCH ×4 (01:59→20:24)
[2017-02-13 05:54] LABS: BASO % 0.1 % (0.0-1.0); LARGE UNSTAINED CELL # 0.1 K/mm3 (0.0-0.4); LARGE UNSTAINED CELL % 1.2 % (0.0-4.0); LYMPH # 0.3 K/mm3 (1.5-4.5); LYMPH % 3.4 % (24.0-44.0); MEAN CORPUSCULAR HEMOGLOBIN 31.6 pg (27.0-33.0); MEAN CORPUSCULAR HGB CONC 34.3 g/dl (32.0-36.5); MONO # 0.5 K/mm3 (0.0-0.8); MONO % 5.4 % (0.0-5.0); NEUTROPHILS # 8.7 K/mm3 (1.8-7.7); NEUTROPHILS % 89.9 % (36.0-66.0); PLATELET COUNT, AUTOMATED 277 k/mm3 (150-450); RED CELL DISTRIBUTION WIDTH 13.1 % (11.5-14.5); WHITE BLOOD COUNT 9.6 K/mm3 (4.0-10.0)
[2017-02-13] MEDS: KCL 20MEQ IN D5W 1000ML 1,000 ML IV SCH ×3 (05:57→19:34)
[2017-02-13 06:13] LABS: ALBUMIN 2.1 GM/DL (3.2-5.2); ALBUMIN/GLOBULIN RATIO 0.43 (1.00-1.93); ALKALINE PHOSPHATASE 156 U/L (45-117); ALT/SGPT 339 U/L (12-78); ANION GAP 10 MEQ/L (8-16); AST/SGOT 311 U/L (15-37); BILIRUBIN,TOTAL 0.2 MG/DL (0.2-1.0); BLOOD UREA NITROGEN 39 MG/DL (7-18); CALCIUM LEVEL 8.6 MG/DL (8.8-10.2); CARBON DIOXIDE LEVEL 20 MEQ/L (21-32); CHLORIDE LEVEL 103 MEQ/L (98-107); CREATININE FOR GFR 1.08 MG/DL (0.70-1.30); GLOMERULAR FILTRATION RATE > 60.0 (>49); GLUCOSE, FASTING 216 MG/DL (80-110); PHOSPHORUS LEVEL 2.5 MG/DL (2.5-4.9); POTASSIUM SERUM 4.4 MEQ/L (3.5-5.1); SODIUM LEVEL 133 MEQ/L (136-145)
[2017-02-13] MEDS: cefTRIAXone SOD 1 GM in D5W MINI-BAG PLUS 50 ML IV SCH ×2 (07:38→20:12)
[2017-02-13 08:00] VITALS: BP 161/75
--- NOTE | 2017-02-13 09:07 | REP ---
Chest x-ray: Two views. History: Right upper lobe pneumonia. Comparison chest x-ray February 11, 2017. Comparison is also made with the June 12, 2014 prior chest x-ray. Findings: There are old rib fractures noted on the left. Left lung is clear. The right upper lobe remains opacified consistent with pneumonia. There is probably some clearing in the 2-day interval since the prior study. No new infiltrate is seen. Pleural angles are sharp. Impression: Persistent consolidation right upper lobe consistent with pneumonia. Some clearing since the February 11, 2017 study. Signed by Ron Arriaga MD 02/13/2017 04:21 P
[2017-02-13] MEDS: AZITHROMYCIN INJ 500 MG, VIAL MATE ADAPTER 1 EACH in D5W 250 ML IV SCH (09:35)
[2017-02-13] MEDS: NICOTINE 14 MG/24 HR TRANSDERMAL TD SCH (09:35)
[2017-02-13] MEDS: methylPREDNISolone INJ 125 MG/2 ML VIAL (J2930) IV SCH (09:35)
[2017-02-13] MEDS: PARoxetine 20 MG TAB PO SCH (09:37)
[2017-02-13] MEDS: BISOPROLOL FUM 2.5 MG PER 1/2TAB PO SCH ×2 (09:37→20:12)
[2017-02-13] MEDS: PANTOPRAZOLE 40MG INJ (PROTONIX) (C9113) IV SCH (11:00)
--- NOTE | 2017-02-13 11:11 | IPNPDOC ---
Subjective Date Seen The patient was seen on 02/13/17. Subjective Chief Complaint/HPI The patient is a 61-year-old male admitted with a reason for visit of Acute Renal Failure,Hyponatremia,Pneumonia. Events since last encounter Continues to slowly improve. Denies c/o. Constitutional: Reports: Fever, Denies: Chills, Night Sweats ENT: Denies: Head Aches, Ear Pain, Dysphagia Skin: Denies: Rash, Lesions, Breakdown Pulmonary: Reports: Cough, Denies: Dyspnea Cardiovascular: Denies: Chest Pain, Palpitations, Orthopnea, Paroxysmal Noc. Dyspnea, Lt Headedness Gastrointestinal: Denies: Nausea, Vomiting, Abdominal Pain, Diarrhea, Constipation Genitourinary: Denies: Dysuria, Frequency, Incontinence, Retention Psych: Reports: Mood Normal, Denies: Depression, Memory Issues Objective Physical Examination General Exam: Positive: Alert Eye Exam: Positive: PERRLA Neck Exam: Negative: JVD Chest Exam: Negative: Clear to auscultation Heart Exam: Positive: Rate Normal Telemetry: Positive: No significant arrhythmia Abdomen Exam: Positive: Normal bowel sounds, Soft, Negative: Tenderness Extremity Exam: Negative: Edema Skin Exam: Negative: Rash Psych Exam: Positive: Mental status NL Assessment /Plan Problems (1) Pneumonia Status: Acute Response to Treatment: Improving Problem Text: D3 ceftriaxone/azithro/vanco 02/13: Tmax 101.2 last 24 hours. presuming CAP 02/11 afebrile, WBC 11.4 (11.0)-? steroid effect, improved dyspnea 02/11 CXR segmental RUL infiltrate 02/11 BCX NG x 2 02/11 inf A/B (2) Acute renal failure Status: Acute Response to Treatment: Improving Problem Text: favor 2 ATN 2 hypotension/ACEI/NSAID/rhabdo (2 infection/rigors) use 02/13/17: Cr. 1.08. Nephrology following and managing IVF. 02/12 68/2.8, K 3.6 02/11 -presenting 87/10.4 02/11 UCX NG 07/2016 baseline cr 1.0 (3) Hyponatremia Status: Acute Response to Treatment: Improving Problem Text: favor hypotonic hypovolemic +/- SIADH ( ? obstructive lung lesion causing RUL PN aram in long-standing smoker)-plan CT chest s/c when renal function normalizes +/- biopsy prior to dc 02/13: 133 today. slowly improving 02/12 1000 128-appropriate rate of correction c bicarb drip 02/11 700 116 appreciate Nephro input (4) Rhabdomyolysis Status: Acute Response to Treatment: Improving Problem Text: improved c hydration 02/12 805 (T-I 0.34-favor 2 rhabdo-peak was 0.59) 02/11 CPK 1667 (5) Diarrhea Status: Acute Response to Treatment: Improving Problem Text: ? viral enteritis vs fluconazole effect 02/11 - GI panel (6) CAD (coronary artery disease) Status: Chronic Response to Treatment: Stable Problem Text: no active angina/chf statin held 2 increased lfts 02/11/17 EKG 12:06 NSR 76 s repol abn (7) Hypertension Status: Chronic Response to Treatment: Stable Problem Text: 02/12 started bisoprolol 2.5 BID given CAD (and bronchospasm by PE , probably baseline COPD) fosinopril 40/carved 25 BID held 2 hypotension (8) Nicotine addiction Status: Chronic Problem Text: 02/12 + 14 mg patch 1 1/ PPD x ~20Y (9) ALISHA (generalized anxiety disorder) Status: Chronic Problem Text: restart HD paroxetine 40 + lorazepam 0.5 TID prn given agitation (2 infection, steroids, off SSRI/ nicotine) (10) DVT prophylaxis Problem Text: 02/12 heparin held 2 ambulating around room and hemorrhoidal bleeding c diarrhea (11) Elevated LFTs Problem Text: LFT trending up. Evaluate Abdominal US today. Plan/VTE VTE Prophylaxis Ordered?: No VTE Exclusion Pharmacological: Active Bleeding Plan Family Medicine Attending Note: I saw Mr. Maria this afternoon; I discussed with JENS Grewal and I agree with her note above. I agree with U/S due to rising LFTs; patient denies abdominal pain and abdomen is nontender today. Renal function normalized today - consider ordering CT of chest tomorrow to assess whether there is a lung mass at location of pneumonia. (KES) VS, I&O, 24H, Fishbone Vital Signs/I&O Vital Signs Date Time Temp Pulse Resp B/P (MAP) Pulse Ox O2 Delivery O2 Flow Rate FiO2 02/13/17 09:37 80 164/74 02/13/17 08:00 99.1 18 92 Room Air 02/13/17 04:57 158.0 77 I&O- Last 24 Hours up to 6 AM 02/13/17 06:00 Intake Total 3575 ml Output Total 5275 ml Balance -1700 ml Laboratory Data 24H LABS Laboratory Tests 2 02/12/17 13:50: Total Creatine Kinase 805H, Creatine Kinase MB 14.6H, Creatine Kinase MB Relative Index 1.81, Troponin I 0.34#H 02/12/17 20:07: Blood Urea Nitrogen 53H, Creatinine 1.58H, Sodium Level 130L, Potassium Level 4.0, Chloride Level 101, Carbon Dioxide Level 19L, Anion Gap 10, Glomerular Filtration Rate 47.7L, Calcium Level 7.9L, Phosphorus Level 2.8#, Magnesium Level 2.0, Albumin 2.3L 02/13/17 05:38: Total Creatine Kinase 305, Creatine Kinase MB 5.8H, Creatine Kinase MB Relative Index 1.90, Troponin I 0.12#H, Blood Urea Nitrogen 39H, Creatinine 1.08, Sodium Level 133L, Potassium Level 4.4, Chloride Level 103, Carbon Dioxide Level 20L, Anion Gap 10, Glomerular Filtration Rate > 60.0, Calcium Level 8.6L, Phosphorus Level 2.5, Albumin 2.1L, White Blood Count 9.6, Red Blood Count 3.83L, Hemoglobin 12.1L, Hematocrit 35.3L, Mean Corpuscular Volume 92.0, Mean Corpuscular Hemoglobin 31.6, Mean Corpuscular Hemoglobin Concent 34.3, Red Cell Distribution Width 13.1, Platelet Count 277, Neutrophils (%) (Auto) 89.9H, Lymphocytes (%) (Auto) 3.4L, Monocytes (%) (Auto) 5.4H, Eosinophils (%) (Auto) 0.0, Basophils (%) (Auto) 0.1, Neutrophils # (Auto) 8.7H, Lymphocytes # (Auto) 0.3L, Monocytes # (Auto) 0.5, Eosinophils # (Auto) 0.0, Basophils # (Auto) 0.0, Large Unclassified Cells % 1.2, Large Unclassified Cells # 0.1, Aspartate Amino Transf (AST/SGOT) 311H, Alanine Aminotransferase (ALT/SGPT) 339H, Alkaline Phosphatase 156H, Total Bilirubin 0.2, Total Protein 7.0, Albumin/Globulin Ratio 0.43L CBC/BMP Laboratory Tests 02/12/17 20:07 Anion Gap 10 02/13/17 05:38 Red Blood Count 3.83 L, Mean Corpuscular Volume 92.0, Mean Corpuscular Hemoglobin 31.6, Mean Corpuscular Hemoglobin Concent 34.3, Red Cell Distribution Width 13.1, Neutrophils (%) (Auto) 89.9 H, Lymphocytes (%) (Auto) 3.4 L, Monocytes (%) (Auto) 5.4 H, Eosinophils (%) (Auto) 0.0, Basophils (%) ( Auto) 0.1, Neutrophils # (Auto) 8.7 H, Lymphocytes # (Auto) 0.3 L, Monocytes # ( Auto) 0.5, Eosinophils # (Auto) 0.0, Basophils # (Auto) 0.0, Calcium Level 8.6 L , Phosphorus Level 2.5, Aspartate Amino Transf (AST/SGOT) 311 H, Alanine Aminotransferase (ALT/SGPT) 339 H, Total Creatine Kinase 305, Alkaline Phosphatase 156 H, Total Bilirubin 0.2, Total Protein 7.0, Albumin 2.1 L Microbiology Microbiology 02/11/17 Blood Culture - Preliminary, Resulted No Growth after 48 hours. All Specime... 02/11/17 Blood Culture - Preliminary, Resulted No Growth after 48 hours. All Specime... 02/11/17 Gastrointestinal Tract Panel (PCR) - Final, Complete 02/11/17 Influenza Virus Type A Antigen - Final, Complete 02/11/17 Influenza Virus Type B Antigen - Final, Complete 02/11/17 Urine Culture - Final, Complete Kerri Mancini Feb 13, 2017 11:11 NEGAR FARRELL MD Feb 13, 2017 14:44
[2017-02-13 12:00] VITALS: BP 184/84
[2017-02-13 13:13] VITALS: BP 154/75
--- NOTE | 2017-02-13 15:21 | REP ---
Complete abdominal ultrasound: There is a negative Zapata's sign to transducer pressure. There is no cholelithiasis, gallbladder wall thickening or pericholecystic fluid. There is no intrahepatic or extrahepatic biliary duct dilatation, the common duct measures 4.7 mm in diameter. The hepatic parenchyma is echogenic compatible with hepato steatosis. There are no focal hepatic masses. There is focal fat sparing adjacent to the gallbladder. This is not unusual. The pancreas is obscured by bowel gas and is not visualized. The spleen is homogeneous and normal size measuring 11.6 cm length. The kidneys are normal size. The right kidney measures 3.8 x 7.455 cm. Left kidney measures 3.7 x 5.9 x 6.1 cm. There is no hydronephrosis, calculus, mass or cyst in the right and the left kidneys. There is an aneurysm of the mid and distal abdominal aorta measuring up to 3.9 cm in diameter. The aneurysm measures 7 cm craniocaudad length. There is no free fluid in the abdomen. Impression: 3.9 cm distal abdominal aortic aneurysm. Hepato steatosis. No biliary duct dilatation. Negative Zapata's sign. Pancreas is obscured by bowel gas. Signed by Evans Park MD 02/13/2017 03:13 P
[2017-02-13 16:00] VITALS: BP 164/78
--- NOTE | 2017-02-13 19:24 | ECGEPIP ---
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 Normal. No change from 02/11/17 Electronically Signed On 02-13-2017 19:24:04 EDT by Damien Guillory
[2017-02-13 20:00] VITALS: BP 158/76
[2017-02-13] MEDS: LORazepam 0.5 MG TAB PO PRN (21:48)
--- NOTE | 2017-02-13 23:48 | IPN ---
DATE: 02/13/2017 SUBJECTIVE: The patient was seen and examined at the bedside today in the morning. The patient is clinically getting better. His sodium has improved to 133. Renal function is improving. Creatinine is down to 1. He denies any active complaint. The patient still has diuresis at this time. Urine output was almost 6 liters yesterday. The patient continues to be on intravenous (IV) fluids at this time. REVIEW OF SYSTEMS: The patient denies any fever, chills, rigors, headache, nausea, vomiting, chest pain, shortness of breath, pain in abdomen, constipation or diarrhea. The rest of the review of systems is negative. OBJECTIVE: VITAL SIGNS: Temperature is 99.1 degrees Fahrenheit, blood pressure is 161/75, pulse is 67, respiratory rate of 18, saturating 92% on room air. INTAKE/OUTPUT: Urine output was 5.8 liters yesterday, 3.9 liters so far today since overnight. Weight on the bed scale is 88 kg. PHYSICAL EXAMINATION: GENERAL: The patient is awake, alert, oriented times three, sitting in the bed in no apparent distress. HEAD AND NECK EXAM: Extraocular muscles intact. Pupils equally round and reactive to light. Mucous membranes are moist. Neck is supple. There is no jugular venous distention (JVD). CARDIOVASCULAR: S1, S2, regular rate. No murmur, rub or gallop. RESPIRATORY: Chest is clear to auscultation bilaterally. Bilateral equal air entry. No rales or rhonchi. ABDOMEN: Abdomen is soft. Positive bowel sounds. Nontender. No ascites. No organomegaly. MUSCULOSKELETAL: Extremities have no clubbing or cyanosis. Pulses are 2+. CENTRAL NERVOUS SYSTEM: No focal neurological deficit. Power is 5/5 in all extremities. GENITOURINARY: The patient has an indwelling Torres catheter at this time. Urine in the bag is clear. LAB REVIEW: CBC showed a WBC of 9.6, hemoglobin 12.1, platelets are 277. BMP this morning showed sodium 133, potassium 4.4, chloride 103, bicarbonate is 20, BUN 39, creatinine is 1.08, calcium is 8.6, phosphorus 2.5, AST 311, ALT 339, alkaline phosphatase is 156, albumin is 2.1. Microbiology: Blood cultures are negative so far. Urine culture is negative so far. GI panel is negative. IMAGING: Ultrasound of the abdomen was done, which showed 3.9 cm distal abdominal aortic aneurysm, hepatic steatosis. No biliary duct dilatation. Chest x-ray done today (morning) showed persistent consolidation in the right upper lobe consistent with pneumonia. CURRENT INPATIENT MEDICATIONS: The patient's medications were all reviewed by me. He continues to be on IV Rocephin and azithromycin. I decreased his IV fluid to 75 mL an hour. There is no other change in the medications today as compared with yesterday. ASSESSMENT: A 61-year-old male with right upper lobe pneumonia, along with acute renal failure and multiple electrolyte abnormalities, including hyponatremia, hypokalemia. PLAN: 1. Acute renal failure. It was secondary to dehydration secondary to diarrhea and vomiting. The patient got IV fluid hydration. Creatinine has improved to 1. I have decreased the IV fluid rate to 75 mL an hour. 2. Hyponatremia. The patient had hypovolemic hyponatremia. Sodium is nicely improving. It has improved to 133 now. I have decreased the IV D5W rate to 75 mL an hour. 3. Metabolic acidosis. No need of bicarbonate administration at this time. Serum bicarbonate has improved to 20. Bicarbonate level is expected to further improve with improving renal function. 4. Right upper lobe pneumonia and possible lung mass. The patient continues to be on IV azithromycin and Rocephin. Once the kidney function improves back to baseline, then the patient can get a CT scan.
[2017-02-13 23:59] VITALS: BP 158/76
[2017-02-14] MEDS: IPRATROPIUM 0.5MG/ALBUTEROL 2.5MG INH SOL UD 3ML (DUONEB)(J7620) NEB SCH ×4 (02:00→19:41)
[2017-02-14] MEDS: KCL 20MEQ IN D5W 1000ML 1,000 ML IV SCH (03:33)
[2017-02-14 04:45] VITALS: BP 163/77
[2017-02-14 05:39] LABS: MEAN CORPUSCULAR HEMOGLOBIN 31.8 pg (27.0-33.0); MEAN CORPUSCULAR HGB CONC 34.5 g/dl (32.0-36.5); RED CELL DISTRIBUTION WIDTH 13.7 % (11.5-14.5)
[2017-02-14 06:01] LABS: ALBUMIN 2.1 GM/DL (3.2-5.2); ALBUMIN/GLOBULIN RATIO 0.47 (1.00-1.93); ALKALINE PHOSPHATASE 134 U/L (45-117); ALT/SGPT 313 U/L (12-78); ANION GAP 8 MEQ/L (8-16); AST/SGOT 173 U/L (15-37); BILIRUBIN,TOTAL 0.2 MG/DL (0.2-1.0); BLOOD UREA NITROGEN 23 MG/DL (7-18); CALCIUM LEVEL 8.4 MG/DL (8.8-10.2); CARBON DIOXIDE LEVEL 24 MEQ/L (21-32); CHLORIDE LEVEL 106 MEQ/L (98-107); GLOMERULAR FILTRATION RATE > 60.0 (>49); GLUCOSE, FASTING 118 MG/DL (80-110); POTASSIUM SERUM 4.6 MEQ/L (3.5-5.1); SODIUM LEVEL 138 MEQ/L (136-145); TOTAL PROTEIN 6.6 GM/DL (6.4-8.2)
[2017-02-14] MEDS: cefTRIAXone SOD 1 GM in D5W MINI-BAG PLUS 50 ML IV SCH ×2 (07:42→20:09)
[2017-02-14 08:00] VITALS: BP 160/83
[2017-02-14] MEDS ORDERED: NS 500 ML IV ONE (08:00)
[2017-02-14] MEDS ORDERED: ISOVUE-370 76% 100ML VIAL (Q9967) As Ordered ONE (08:13)
--- NOTE | 2017-02-14 08:32 | IPNPDOC ---
Subjective Date Seen The patient was seen on 02/14/17. Subjective Chief Complaint/HPI The patient is a 61-year-old male admitted with a reason for visit of Acute Renal Failure,Hyponatremia,Pneumonia. Events since last encounter Expectorating sputum. Tolerating food and fluids. Constitutional: Denies: Chills, Fever, Night Sweats ENT: Denies: Head Aches, Ear Pain, Dysphagia Skin: Denies: Rash, Lesions, Breakdown Pulmonary: Reports: Cough, Denies: Dyspnea Cardiovascular: Denies: Chest Pain, Palpitations, Orthopnea, Paroxysmal Noc. Dyspnea, Lt Headedness Gastrointestinal: Denies: Nausea, Vomiting, Abdominal Pain, Diarrhea, Constipation, Melena, Hematochezia, Other Symptoms Genitourinary: Reports: Frequency (secondary to IVF), Denies: Dysuria, Incontinence, Retention Objective Physical Examination General Exam: Positive: Alert Eye Exam: Positive: PERRLA Neck Exam: Negative: JVD Chest Exam: Negative: Clear to auscultation Heart Exam: Positive: Rate Normal Telemetry: Positive: No significant arrhythmia Abdomen Exam: Positive: Normal bowel sounds, Soft, Negative: Tenderness Extremity Exam: Negative: Edema Skin Exam: Negative: Rash Psych Exam: Positive: Mental status NL Assessment /Plan Problems (1) Lung nodule Problem Text: plan outpatient PET-too much consolidation at this point 02/14/17 CT chest s/c Large right upper lobe infiltrate. In addition there is a 9 mm nodule in the anterior segment right lower lobe inferiorly. This is a category 4A nodule with a 05-15 % probability of malignancy. Recommendation is for PET scan and 3-month follow-up chest CT. (2) Pneumonia Status: Acute Response to Treatment: Improving Problem Text: / ceftriaxone/azithro 02/14: afebrile, expectorating sputum-check SCX, + IS/PEEP 02/13: Tmax 101.2 last 24 hours. presuming CAP 02/11 afebrile, WBC 11.4 (11.0)-? steroid effect, improved dyspnea 02/11 CXR segmental RUL infiltrate 02/11 BCX NG x 2 02/11 inf A/B (3) Acute renal failure Status: Acute Response to Treatment: Improving Problem Text: favor 2 ATN 2 hypotension/ACEI/NSAID/rhabdo (2 infection/rigors) use 02/13/17: Cr. 1.08. Nephrology following and managing IVF. 02/12 68/2.8, K 3.6 02/11 -presenting 87/10.4 02/11 UCX NG 07/2016 baseline cr 1.0 (4) Hyponatremia Status: Acute Response to Treatment: Improving Problem Text: 02/14/17: 138 favor hypotonic hypovolemic +/- SIADH ( ? obstructive lung lesion causing RUL PN aram in long-standing smoker)-plan CT chest s/c when renal function normalizes +/- biopsy prior to dc 02/13: 133 today. slowly improving 02/12 1000 128-appropriate rate of correction c bicarb drip 02/11 700 116 appreciate Nephro input (5) Diarrhea Status: Acute Response to Treatment: Improving Problem Text: ? viral enteritis vs fluconazole effect 02/11 - GI panel (6) CAD (coronary artery disease) Status: Chronic Response to Treatment: Stable Problem Text: no active angina/chf statin held 2 increased lfts 02/11/17 EKG 12:06 NSR 76 s repol abn (7) Hypertension Status: Chronic Response to Treatment: Stable Problem Text: plan restart ACEI 02/13 if still elevated-HR low 60s on current dose bisoprolol 02/12 started bisoprolol 2.5 BID given CAD (and bronchospasm by PE, probably baseline COPD) fosinopril 40/carved 25 BID held 2 hypotension (8) Nicotine addiction Status: Chronic Problem Text: 02/12 + 14 mg patch 1 1/2 PPD x ~20Y (9) ALISHA (generalized anxiety disorder) Status: Chronic Problem Text: restart HD paroxetine 40 + lorazepam 0.5 TID prn given agitation (2 infection, steroids, off SSRI/ nicotine) (10) DVT prophylaxis Problem Text: 02/12 heparin held 2 ambulating around room and hemorrhoidal bleeding c diarrhea (11) Elevated LFTs Problem Text: mild improvement in LFT. fatty liver infiltration noted on US. LFT trending up. Evaluate Abdominal US today. (12) AAA (abdominal aortic aneurysm) Problem Text: 3.9 cm AAA noted on US of abdomen. Reviewed with patient. Advised monitor outpatient. Consider vascular consult for monitoring outpatient. (13) Rhabdomyolysis Status: Resolved Response to Treatment: Improving Problem Text: improved c hydration 02/12 805 (T-I 0.34-favor 2 rhabdo-peak was 0.59) 02/11 CPK 1667 Plan/VTE VTE Prophylaxis Ordered?: No VTE Exclusion Mechanical Proph: Other (TEDS, ambulatory) VS, I&O, 24H, Fishbone Vital Signs/I&O Vital Signs Date Time Temp Pulse Resp B/P (MAP) Pulse Ox O2 Delivery O2 Flow Rate FiO2 02/14/17 04:45 98.2 63 20 163/77 (105) 94 Room Air 02/13/17 04:57 158.0 77 I&O- Last 24 Hours up to 6 AM 02/14/17 06:00 Intake Total 1749 ml Output Total 2775 ml Balance -1026 ml Laboratory Data 24H LABS Laboratory Tests 2 02/14/17 05:28: Anion Gap 8, Glomerular Filtration Rate > 60.0, Blood Urea Nitrogen 23H, Creatinine 0.70, Sodium Level 138, Potassium Level 4.6, Chloride Level 106, Carbon Dioxide Level 24, Calcium Level 8.4L, Aspartate Amino Transf (AST/SGOT) 173H, Alanine Aminotransferase (ALT/SGPT) 313H, Alkaline Phosphatase 134H, Total Bilirubin 0.2, Total Protein 6.6, Albumin 2.1L, Albumin/Globulin Ratio 0.47L CBC/BMP Laboratory Tests 02/14/17 05:28 Red Blood Count 3.62 L, Mean Corpuscular Volume 92.0, Mean Corpuscular Hemoglobin 31.8, Mean Corpuscular Hemoglobin Concent 34.5, Red Cell Distribution Width 13.7, Calcium Level 8.4 L, Aspartate Amino Transf (AST/SGOT) 173 H, Alanine Aminotransferase (ALT/SGPT) 313 H, Alkaline Phosphatase 134 H, Total Bilirubin 0.2, Total Protein 6.6, Albumin 2.1 L Microbiology Microbiology 02/11/17 Blood Culture - Preliminary, Resulted No Growth after 72 hours. All specime... 02/11/17 Blood Culture - Preliminary, Resulted No Growth after 72 hours. All specime... 02/11/17 Gastrointestinal Tract Panel (PCR) - Final, Complete 02/11/17 Influenza Virus Type A Antigen - Final, Complete 02/11/17 Influenza Virus Type B Antigen - Final, Complete 02/11/17 Urine Culture - Final, Complete Kerri Mancini Feb 14, 2017 08:32 Jayant Calderon M.D. Feb 14, 2017 15:41
--- NOTE | 2017-02-14 09:18 | REP ---
CT of the chest with IV contrast: The study is correlated with recent plain film studies of the chest. There is a large right upper lobe infiltrate. In addition there is a 9 mm nodule in the anterior segment of the right upper lobe inferiorly on image 50. This nodule is not visible on the comparison plain film studies. Left lung is clear. There are no pleural effusions. There are multiple enlarged mediastinal nodes measuring up to 11 mm short axis. There are enlarged right hilar nodes measuring up to 17 mm short axis. There is no axillary adenopathy. The thoracic aorta is unremarkable. Cardiac size is normal. There is no pericardial effusion. The visualized upper abdominal contents are unremarkable. There is no adrenal mass. Impression: Large right upper lobe infiltrate. In addition there is a 9 mm nodule in the anterior segment right lower lobe inferiorly. This is a category 4A nodule with a 05-15 % probability of malignancy. Recommendation is for PET scan and 3-month follow-up chest CT. There is mediastinal adenopathy. There is right hilar adenopathy. Signed by Evans Park MD 02/14/2017 09:09 A
[2017-02-14] MEDS ORDERED: SLF 3 ML SYR IV PRN (09:45)
[2017-02-14] MEDS: BISOPROLOL FUM 2.5 MG PER 1/2TAB PO SCH ×2 (09:48→20:10)
[2017-02-14] MEDS: PARoxetine 20 MG TAB PO SCH (09:48)
[2017-02-14] MEDS: AZITHROMYCIN INJ 500 MG, VIAL MATE ADAPTER 1 EACH in D5W 250 ML IV SCH (09:49)
[2017-02-14] MEDS: NICOTINE 14 MG/24 HR TRANSDERMAL TD SCH (09:49)
[2017-02-14] MEDS: methylPREDNISolone INJ 125 MG/2 ML VIAL (J2930) IV SCH (09:49)
[2017-02-14] MEDS: PANTOPRAZOLE 40MG INJ (PROTONIX) (C9113) IV SCH (10:58)
--- NOTE | 2017-02-14 12:57 | IPN ---
DATE: 02/14/2017 SUBJECTIVE: The patient was seen and examined at the bedside today in the morning. The patient feels much more better today. His sodium level is normalized now. Renal function is close to baseline now. He is otherwise afebrile and hemodynamically stable. REVIEW OF SYSTEMS: The patient denies any fever, chills, rigors, headache, nausea, vomiting, chest pain. He does report some cough. He denies any pain in abdomen, constipation or diarrhea. The rest of the review of systems is negative. OBJECTIVE: VITAL SIGNS: Temperature is 98.1 degrees Fahrenheit, blood pressure is 160/83, pulse is 71, respiratory rate of 18, saturating 97% on room air. INTAKE/OUTPUT: Urine output recorded as 4.6 liters yesterday. There is no urine output recorded overnight. Weight on the bed scale is 88 kg. PHYSICAL EXAMINATION: GENERAL: The patient is awake, alert, oriented times three, laying in bed in no apparent distress. HEAD AND NECK EXAM: Extraocular muscles intact. Pupils equally round and reactive to light. Mucous membranes are moist. Neck is supple. There is no jugular venous distention (JVD). CARDIOVASCULAR: S1, S2, regular rate. No murmur, rub or gallop. RESPIRATORY: Chest is clear to auscultation bilaterally. Bilateral equal air entry. No rales or rhonchi. ABDOMEN: Abdomen is soft. Positive bowel sounds. Nontender. No ascites. No organomegaly. MUSCULOSKELETAL: Extremities have no clubbing or cyanosis. Pulses are 2+. CENTRAL NERVOUS SYSTEM: No focal neurological deficit. Power is 5/5 in all extremities. GENITOURINARY: Torres catheter has been removed now. LAB REVIEW: CBC showed a WBC of 10, hemoglobin 11.5, platelets are 299. BMP showed sodium 138, potassium 4.6, chloride 106, bicarbonate 24, BUN 23, creatinine 0.7, calcium 8.4, albumin 2.1. IMAGING: CAT scan of the chest was done with IV contrast which showed a large right upper lobe infiltrate. There was a 9 mm nodule in the anterior segment of the right lower lobe. A PET scan was recommended. CURRENT INPATIENT MEDICATIONS: Patient's medications were reviewed by me. His IV fluids have been stopped. He continues to be on IV Rocephin and azithromycin. There is no other change in the medications today as compared with yesterday. ASSESSMENT: 61-year-old male with right upper lobe pneumonia. Nephrology service is following the patient for acute renal failure and multiple electrolyte abnormalities. PLAN: 1. Acute renal failure. It was secondary to dehydration, volume depletion and diarrhea with vomiting. Renal function has improved with IV fluids. Fluids have been stopped now. 2. Hyponatremia. The patient had hypovolemic hyponatremia. Sodium is improved to 138 now. 3. Metabolic acidosis. Bicarbonate level is improved to 24 now, which is close to normal. 4. Right upper lobe pneumonia. Continue Rocephin and azithromycin as per primary team. The patient is symptomatically getting better. The patient's renal function and electrolytes have improved now. Nephrology service will sign off at this moment. Please call nephrology service for any help in the management of this patient during this hospitalization.
[2017-02-14] MEDS: SLF 3 ML SYR IV SCH ×2 (13:20→20:12)
[2017-02-14 14:00] VITALS: BP 162/70
[2017-02-14] MEDS: guaiFENesin ER 600 MG TAB PO SCH (20:10)
[2017-02-14 22:00] VITALS: BP 161/73
[2017-02-14] MEDS ORDERED: DOCUSATE SODIUM 100 MG CAP PO ONE (23:00)
[2017-02-14] MEDS ORDERED: PHENAZOPYRIDINE 100 MG TAB PO ONE (23:00)
[2017-02-15] MEDS: IPRATROPIUM 0.5MG/ALBUTEROL 2.5MG INH SOL UD 3ML (DUONEB)(J7620) NEB SCH ×4 (02:00→19:22)
[2017-02-15] MEDS: SLF 3 ML SYR IV SCH ×3 (05:40→20:28)
[2017-02-15 06:00] VITALS: BP 168/84
[2017-02-15 06:21] LABS: ALBUMIN 2.1 GM/DL (3.2-5.2); ALBUMIN/GLOBULIN RATIO 0.47 (1.00-1.93); ALKALINE PHOSPHATASE 138 U/L (45-117); ALT/SGPT 251 U/L (12-78); ANION GAP 7 MEQ/L (8-16); AST/SGOT 90 U/L (15-37); BILIRUBIN,TOTAL 0.4 MG/DL (0.2-1.0); BLOOD UREA NITROGEN 18 MG/DL (7-18); CALCIUM LEVEL 8.7 MG/DL (8.8-10.2); CARBON DIOXIDE LEVEL 28 MEQ/L (21-32); CHLORIDE LEVEL 106 MEQ/L (98-107); CREATININE FOR GFR 0.71 MG/DL (0.70-1.30); GLOMERULAR FILTRATION RATE > 60.0 (>49); GLUCOSE, FASTING 86 MG/DL (80-110); POTASSIUM SERUM 4.4 MEQ/L (3.5-5.1); SODIUM LEVEL 141 MEQ/L (136-145); TOTAL PROTEIN 6.6 GM/DL (6.4-8.2)
--- NOTE | 2017-02-15 08:10 | IPNPDOC ---
Subjective Date Seen The patient was seen on 02/15/17. Subjective Chief Complaint/HPI The patient is a 61-year-old male admitted with a reason for visit of Acute Renal Failure,Hyponatremia,Pneumonia. Events since last encounter OOB ambulating. had some burning of urine overnight. No PVR on bladder scan. Denies abdominal pain. Mild blood tinged urine. Had Torres catheter while in ICU/ PCU. Admits to catheter pulling at times with position change. Constitutional: Denies: Chills, Fever, Night Sweats ENT: Denies: Head Aches, Ear Pain, Dysphagia Pulmonary: Reports: Cough, Denies: Dyspnea Cardiovascular: Denies: Chest Pain, Palpitations, Orthopnea, Paroxysmal Noc. Dyspnea, Lt Headedness Gastrointestinal: Denies: Nausea, Vomiting, Abdominal Pain, Diarrhea, Constipation Genitourinary: Reports: Dysuria Psych: Reports: Mood Normal, Denies: Depression, Memory Issues Objective Physical Examination General Exam: Positive: Alert Eye Exam: Positive: PERRLA Neck Exam: Negative: JVD Chest Exam: Negative: Clear to auscultation Heart Exam: Positive: Rate Normal Telemetry: Positive: No significant arrhythmia Abdomen Exam: Positive: Normal bowel sounds, Soft, Negative: Tenderness Extremity Exam: Negative: Edema Skin Exam: Negative: Rash Psych Exam: Positive: Mental status NL Assessment /Plan Problems (1) Lung nodule Problem Text: plan outpatient PET-too much consolidation at this point. Needs repeat CT chest in 3 months: 04/201702/14/17 CT chest s/c Large right upper lobe infiltrate. In addition there is a 9 mm nodule in the anterior segment right lower lobe inferiorly. This is a category 4A nodule with a 05-15 % probability of malignancy. Recommendation is for PET scan and 3-month follow-up chest CT. (2) Pneumonia Status: Acute Response to Treatment: Improving Problem Text: D5/14 ceftriaxone/azithro 02/14: afebrile, expectorating sputum-check SCX, + IS/PEEP 02/13: Tmax 101.2 last 24 hours. presuming CAP 02/11 afebrile, WBC 11.4 (11.0)-? steroid effect, improved dyspnea 02/11 CXR segmental RUL infiltrate 02/11 BCX NG x 2 02/11 inf A/B (3) Diarrhea Status: Acute Response to Treatment: Improving Problem Text: ? viral enteritis vs fluconazole effect GI panel negative. (4) CAD (coronary artery disease) Status: Chronic Response to Treatment: Stable Problem Text: no active angina/chf statin held 2 increased lfts 02/11/17 EKG 12:06 NSR 76 s repol abn (5) Hypertension Status: Chronic Response to Treatment: Stable Problem Text: Continue fosinopril. 02/12 started bisoprolol 2.5 BID given CAD (and bronchospasm by PE, probably baseline COPD); previously on carvedilol. (6) Nicotine addiction Status: Chronic Problem Text: 02/12 + 14 mg patch 1 1 PPD x ~20Y (7) ALISHA (generalized anxiety disorder) Status: Chronic Problem Text: restart HD paroxetine 40 + lorazepam 0.5 TID prn given agitation (2 infection, steroids, off SSRI/ nicotine) (8) DVT prophylaxis Problem Text: 02/12 heparin held 2 ambulating around room and hemorrhoidal bleeding c diarrhea (9) Elevated LFTs Problem Text: mild improvement in LFT. fatty liver infiltration noted on US. (10) AAA (abdominal aortic aneurysm) Problem Text: 3.9 cm AAA noted on US of abdomen. Reviewed with patient. Advised monitor outpatient. Consider vascular consult for monitoring outpatient. (11) Rhabdomyolysis Status: Resolved Response to Treatment: Improving Problem Text: improved c hydration 02/12 805 (T-I 0.34-favor 2 rhabdo-peak was 0.59) 02/11 CPK 1667 (12) Acute renal failure Status: Resolved Response to Treatment: Improving Problem Text: favor 2 ATN 2 hypotension/ACEI/NSAID/rhabdo (2 infection/rigors) use 02/13/17: Cr. 1.08. Nephrology following and managing IVF. 02/12 68/2.8, K 3.6 02/11 -presenting 87/10.4 02/11 UCX NG 07/2016 baseline cr 1.0 (13) Hyponatremia Status: Resolved Response to Treatment: Improving Problem Text: 02/14/17: 138 favor hypotonic hypovolemic +/- SIADH ( ? obstructive lung lesion causing RUL PN aram in long-standing smoker)-plan CT chest s/c when renal function normalizes +/- biopsy prior to dc 02/13: 133 today. slowly improving 02/12 1000 128-appropriate rate of correction c bicarb drip 02/11 700 116 appreciate Nephro input Plan/VTE VTE Prophylaxis Ordered?: No VTE Exclusion Mechanical Proph: Other (TEDS, ambulatory) Plan Family Medicine Attending Note: I saw Mr. Maria this afternoon; I discussed his care with Kerri Mancini NP and I agree with her note above. He can likely be switched to PO cefdinir tomorrow for discharge. He will need outpatient PET to evaluate his lung nodule and likely needs AAA to be followed. Hyponatremia has resolved. (KES) VS, I&O, 24H, Fishbone Vital Signs/I&O Vital Signs Date Time Temp Pulse Resp B/P (MAP) Pulse Ox O2 Delivery O2 Flow Rate FiO2 02/15/17 06:00 99.3 67 18 168/84 (112) 94 Room Air 02/13/17 04:57 158.0 77 I&O- Last 24 Hours up to 6 AM 02/15/17 06:00 Intake Total 1955 ml Output Total 1900 ml Balance 55 ml Laboratory Data 24H LABS Laboratory Tests 2 02/15/17 05:33: Anion Gap 7L, Glomerular Filtration Rate > 60.0, Blood Urea Nitrogen 18, Creatinine 0.71, Sodium Level 141, Potassium Level 4.4, Chloride Level 106, Carbon Dioxide Level 28, Calcium Level 8.7L, Aspartate Amino Transf (AST/SGOT) 90H, Alanine Aminotransferase (ALT/SGPT) 251H, Alkaline Phosphatase 138H, Total Bilirubin 0.4#, Total Protein 6.6, Albumin 2.1L, Albumin/Globulin Ratio 0.47L CBC/BMP Laboratory Tests 02/15/17 05:33 Calcium Level 8.7 L, Aspartate Amino Transf (AST/SGOT) 90 H, Alanine Aminotransferase (ALT/SGPT) 251 H, Alkaline Phosphatase 138 H, Total Bilirubin 0.4 #, Total Protein 6.6, Albumin 2.1 L Microbiology Microbiology 02/11/17 Blood Culture - Preliminary, Resulted No Growth after 72 hours. All specime... 02/11/17 Blood Culture - Preliminary, Resulted No Growth after 72 hours. All specime... 02/11/17 Gastrointestinal Tract Panel (PCR) - Final, Complete 02/11/17 Influenza Virus Type A Antigen - Final, Complete 02/11/17 Influenza Virus Type B Antigen - Final, Complete 02/11/17 Urine Culture - Final, Complete Alberry,Kerri D [employer] Feb 15, 2017 08:10 NEGAR FARRELL MD Feb 15, 2017 15:32
[2017-02-15] MEDS: NICOTINE 14 MG/24 HR TRANSDERMAL TD SCH (08:20)
[2017-02-15] MEDS: cefTRIAXone SOD 1 GM in D5W MINI-BAG PLUS 50 ML IV SCH ×2 (08:20→20:26)
[2017-02-15] MEDS: FOSINOPRIL 20 MG TAB PO SCH (08:24)
[2017-02-15] MEDS: BISOPROLOL FUM 2.5 MG PER 1/2TAB PO SCH ×2 (08:24→20:29)
[2017-02-15] MEDS: DOCUSATE SODIUM 100 MG CAP PO SCH ×2 (08:25→20:27)
[2017-02-15] MEDS: guaiFENesin ER 600 MG TAB PO SCH ×2 (08:25→20:27)
[2017-02-15] MEDS: PARoxetine 20 MG TAB PO SCH (08:25)
[2017-02-15] MEDS: AZITHROMYCIN 250 MG TAB PO SCH (08:25)
[2017-02-15] MEDS: PANTOPRAZOLE 40MG INJ (PROTONIX) (C9113) IV SCH (11:11)
[2017-02-15 14:00] VITALS: BP 159/81
[2017-02-15 22:00] VITALS: BP 178/86
[2017-02-16] MEDS: IPRATROPIUM 0.5MG/ALBUTEROL 2.5MG INH SOL UD 3ML (DUONEB)(J7620) NEB SCH ×2 (01:16→07:25)
[2017-02-16 05:55] LABS: MEAN CORPUSCULAR HGB CONC 34.4 g/dl (32.0-36.5); MEAN CORPUSCULAR VOLUME 93.1 fl (80.0-96.0); RED CELL DISTRIBUTION WIDTH 13.5 % (11.5-14.5); WHITE BLOOD COUNT 11.6 K/mm3 (4.0-10.0)
[2017-02-16 06:00] VITALS: BP 150/88
[2017-02-16 06:04] LABS: ALBUMIN 2.4 GM/DL (3.2-5.2); ALBUMIN/GLOBULIN RATIO 0.53 (1.00-1.93); ALKALINE PHOSPHATASE 130 U/L (45-117); ALT/SGPT 191 U/L (12-78); ANION GAP 7 MEQ/L (8-16); AST/SGOT 43 U/L (15-37); BILIRUBIN,TOTAL 0.4 MG/DL (0.2-1.0); BLOOD UREA NITROGEN 14 MG/DL (7-18); CALCIUM LEVEL 8.7 MG/DL (8.8-10.2); CARBON DIOXIDE LEVEL 29 MEQ/L (21-32); CHLORIDE LEVEL 103 MEQ/L (98-107); CREATININE FOR GFR 0.76 MG/DL (0.70-1.30); GLOMERULAR FILTRATION RATE > 60.0 (>49); GLUCOSE, FASTING 93 MG/DL (80-110); POTASSIUM SERUM 4.4 MEQ/L (3.5-5.1); SODIUM LEVEL 139 MEQ/L (136-145); TOTAL PROTEIN 6.9 GM/DL (6.4-8.2)
[2017-02-16] MEDS: SLF 3 ML SYR IV SCH (06:41)
[2017-02-16] MEDS ORDERED: CEFD1CAP8 PO (07:51)
[2017-02-16] MEDS ORDERED: IPRASOL4 NEB (07:51)
[2017-02-16] MEDS ORDERED: NICO14PA TD (07:51)
[2017-02-16] MEDS ORDERED: MUCI600T31 PO (07:51)
[2017-02-16] MEDS: DOCUSATE SODIUM 100 MG CAP PO SCH (09:00)
[2017-02-16] MEDS: cefTRIAXone SOD 1 GM in D5W MINI-BAG PLUS 50 ML IV SCH (09:14)
[2017-02-16] MEDS: BISOPROLOL FUM 2.5 MG PER 1/2TAB PO SCH (09:23)
[2017-02-16 09:25] VITALS: BP 159/92
[2017-02-16] MEDS: guaiFENesin ER 600 MG TAB PO SCH (09:25)
[2017-02-16] MEDS: FOSINOPRIL 20 MG TAB PO SCH (09:25)
[2017-02-16] MEDS: AZITHROMYCIN 250 MG TAB PO SCH (09:28)
[2017-02-16] MEDS: NICOTINE 14 MG/24 HR TRANSDERMAL TD SCH (09:29)
[2017-02-16] MEDS: PARoxetine 20 MG TAB PO SCH (09:30)
--- NOTE | 2017-02-16 19:55 | DSES ---
DATE OF ADMISSION: 02/11/2017 DATE OF DISCHARGE: 02/16/2017 PRIMARY CARE PHYSICIAN: Marlen Alfaro, nurse practitioner. CONSULTANTS: Dr. Maurilio Stringer and Dr. Radha Degroot HISTORY OF PRESENT ILLNESS: This is a 61-year-old male who presented to [facility] Emergency Room with a 1-week history of worsening generalized myalgia, fever, fatigue, chills, rigors, anorexia, and intermittent diarrhea. Patient admitted with dyspnea with exertion, minimal nonproductive cough. Systolic blood pressure on presentation in the emergency room was in the 80s. Workup in the emergency department (ED) proved patient was in acute renal failure with community-acquired pneumonia to the right upper lobe. Other admitting diagnosis includes metabolic acidosis with hyponatremia. HOSPITAL COURSE: Patient was admitted to the family medicine service. Patient was aggressively rehydrated with intravenous (IV) fluids. Nephrology was consulted. Patient's angiotensin-converting enzyme (SYMONE) inhibitor was held. Patient was placed on ceftriaxone 1 gram IV every 12 hours. Diarrhea resolved. Patient appeared to have some significant agitation admission day 2. He was subsequently started on his Paxil and a nicotine patch. Agitation seemed to improve, and his mood stabilized. Patient's renal function normalized on February 14. His fosinopril was resumed on February 15 due to elevated blood pressures with shown improvement in his blood pressure and no abnormalities to his renal function. CT of the chest was completed on February 14 after renal function normalized. IMPRESSION: Large right upper lobe infiltrate. In addition, there is a 9 mm nodule in the anterior segment of the right lower lobe inferiorly. This is a category 4A nodule with a 5-15% probably of malignancy. Recommendation is for PET scan and 3-month followup of chest CT. Also noted patient had mediastinal and right hilar adenopathy. Other imaging includes an abdominal ultrasound secondary to elevated liver function test (LFT) and incident finding of a 3.9 cm distal abdominal aortic aneurysm was found. Patient was also positive for hepatosteatosis. Otherwise normal abdominal ultrasound. Patient has been ambulating in the hallway independently. Has been tolerating a full regular diet. Mood has significantly improved. He is expectorating sputum without difficulty. He denies significant dyspnea or shortness of breath. Denies fevers or cold chills. Denies excessive fatigue and is anxious to return home. PHYSICAL EXAMINATION: Blood pressure this morning 150/88 with a heart rate of 66, oxygen saturation 92% on room air. Labs show white blood cell count of 11,000 with a hemoglobin and hematocrit of 13 and 39. Chemistry shows a sodium of 139, potassium 4.4, creatinine 0.76 with a GFR well above 60. All microbiology proved negative for urine culture, gastrointestinal (GI) panel, negative blood cultures, and negative for flu. HEENT: Neck is supple without lymphadenopathy or jugular venous distention (JVD). CARDIOVASCULAR: Heart rate and rhythm are regular. PULMONARY: Lungs are with occasional rhonchi to the right mid lobe, otherwise clear. Patient's respirations are easy and unlabored. ABDOMEN: Soft with positive bowel sounds all four quadrants and no palpable tenderness. Bilateral lower extremities are without any edema. NEUROLOGIC: Patient is alert and oriented times three. No visible tremors appreciated. PSYCHIATRIC: Affect is mildly flat. Conversation is appropriate and congruent. Patient does maintain eye contact. ASSESSMENT/DISCHARGE DIAGNOSES: 1. Right upper lobe pneumonia. 2. A 9 mm right lower lobe pulmonary nodule. 3. Acute kidney injury. 4. Abdominal aortic aneurysm. 5. Hyponatremia secondary to hypovolemia. 6. Rhabdomyolysis. 7. Elevated liver function tests. SECONDARY DIAGNOSES: 1. History of coronary artery disease. 2. Hypertension. 3. Nicotine addiction. 4. Generalized anxiety disorder. PLAN: Patient will be discharged home. He will followup with his primary care physician (PCP), Marlen Alfaro, within the next 5-7 days. Diet is as tolerated. Activity is as tolerated; however, patient is remain out of work until his followup with his PCP. He is to remain nicotine free. Patient will need vascular surgery consultation to follow his abdominal aortic aneurysm. Patient will need PET scan for further evaluation of pulmonary nodule as well as repeat CT scan within the next 6-12 weeks after pneumonia has resolved for further evaluation of his nodule. MEDICATIONS: - albuterol with ipratropium bromide 3 mL every 6 hours - cefdinir 300 mg capsule one by mouth twice a day for the next 10 days - Mucinex 600 mg p twice a day - Nicotine patch 14 mg, apply in the morning, remove in the evening at bedtime. - aspirin 81 mg one daily - atorvastatin 80 mg daily - carvedilol 25 mg by mouth twice a day - fosinopril 40 mg by mouth twice a day - omeprazole 20 mg by mouth twice a day - paroxetine 40 mg by mouth daily - vitamin D 50,000 international units weekly Patient is discharged in stable and satisfactory condition with no further questions at time of discharge.
[2017-04-07] MEDS ORDERED: K-TA10TA2 PO (10:37)
[2017-04-07] MEDS ORDERED: D 50CAP PO (10:37)
[2017-04-07] MEDS ORDERED: MULT1TAB10 PO (10:37)
[2017-04-07] MEDS ORDERED: CHLO25TA PO (10:37)
== END 2017-02-16 11:50 | disposition home or self-care (01) | DRG 139 ==
LOC: M ED 06:34 → M ED INP 10:04 → M ICU 11:35 → M PCU 02-12 22:27 → M MSPAV 02-14 13:58
PROVIDERS: ADMIT Family Medicine; ATTEND Family Medicine
DX: J18.9 Pneumonia, unspecified organism (principal); R57.1 Hypovolemic shock; N17.9 Acute kidney failure, unspecified; E22.2 Syndrome of inappropriate secretion of antidiuretic hormone; M62.82 Rhabdomyolysis; E87.2 Acidosis; E55.9 Vitamin D deficiency, unspecified; N18.3 Chronic kidney disease, stage 3 (moderate); I12.9 Hypertensive chronic kidney disease with stage 1 through stage 4 chronic kidney disease, or unspecified chronic kidney disease; E78.5 Hyperlipidemia, unspecified; R91.1 Solitary pulmonary nodule; F41.1 Generalized anxiety disorder; R19.7 Diarrhea, unspecified; I71.4 Abdominal aortic aneurysm, without rupture; F17.210 Nicotine dependence, cigarettes, uncomplicated; I25.10 Atherosclerotic heart disease of native coronary artery without angina pectoris; K21.9 Gastro-esophageal reflux disease without esophagitis; E66.9 Obesity, unspecified; Z79.82 Long term (current) use of aspirin; Z79.899 Other long term (current) drug therapy; Z79.1 Long term (current) use of non-steroidal anti-inflammatories (NSAID); Z95.5 Presence of coronary angioplasty implant and graft

== ENCOUNTER → 2017-02-23 | Outpatient (REF) | payer OTHER ==
[2017-02-23 14:41] LABS: BASO # 0.1 K/mm3 (0.0-0.2); EOS # 0.1 K/mm3 (0.0-0.50); EOS % 2.1 % (0.0-3.0); LARGE UNSTAINED CELL # 0.2 K/mm3 (0.0-0.4); LARGE UNSTAINED CELL % 2.4 % (0.0-4.0); LYMPH # 1.4 K/mm3 (1.5-4.5); LYMPH % 23.6 % (24.0-44.0); MEAN CORPUSCULAR HEMOGLOBIN 31.9 pg (27.0-33.0); MEAN CORPUSCULAR HGB CONC 34.3 g/dl (32.0-36.5); MEAN CORPUSCULAR VOLUME 92.9 fl (80.0-96.0); MONO # 0.5 K/mm3 (0.0-0.8); MONO % 7.8 % (0.0-5.0); NEUTROPHILS # 3.8 K/mm3 (1.8-7.7); PLATELET COUNT, AUTOMATED 339 k/mm3 (150-450); RED CELL DISTRIBUTION WIDTH 12.7 % (11.5-14.5); WHITE BLOOD COUNT 6.1 K/mm3 (4.0-10.0)
[2017-02-23 15:00] LABS: ALBUMIN 3.1 GM/DL (3.2-5.2); ALBUMIN/GLOBULIN RATIO 0.79 (1.00-1.93); ALKALINE PHOSPHATASE 126 U/L (45-117); ALT/SGPT 65 U/L (12-78); ANION GAP 10 MEQ/L (8-16); AST/SGOT 28 U/L (15-37); BILIRUBIN,TOTAL 0.5 MG/DL (0.2-1.0); BLOOD UREA NITROGEN 17 MG/DL (7-18); CALCIUM LEVEL 8.4 MG/DL (8.8-10.2); CARBON DIOXIDE LEVEL 22 MEQ/L (21-32); CHLORIDE LEVEL 97 MEQ/L (98-107); GLOMERULAR FILTRATION RATE > 60.0 (>49); GLUCOSE, FASTING 97 MG/DL (80-110); POTASSIUM SERUM 4.2 MEQ/L (3.5-5.1); SODIUM LEVEL 129 MEQ/L (136-145)
== END ==
LOC: M SFHCPLAZ 10:45
PROVIDERS: ATTEND Nurse Practitioner Family
DX: I10 Essential (primary) hypertension (principal)

== ENCOUNTER → 2017-02-28 | Outpatient (REF) | payer OTHER ==
[2017-02-28 12:17] LABS: MEAN CORPUSCULAR HEMOGLOBIN 31.7 pg (27.0-33.0); MEAN CORPUSCULAR HGB CONC 33.3 g/dl (32.0-36.5); MEAN CORPUSCULAR VOLUME 95.2 fl (80.0-96.0); RED CELL DISTRIBUTION WIDTH 13.3 % (11.5-14.5); WHITE BLOOD COUNT 5.3 K/mm3 (4.0-10.0)
[2017-02-28 12:21] LABS: ALBUMIN 3.1 GM/DL (3.2-5.2); ALBUMIN/GLOBULIN RATIO 0.84 (1.00-1.93); ALKALINE PHOSPHATASE 116 U/L (45-117); ALT/SGPT 48 U/L (12-78); ANION GAP 9 MEQ/L (8-16); AST/SGOT 25 U/L (15-37); BILIRUBIN,TOTAL 0.4 MG/DL (0.2-1.0); BLOOD UREA NITROGEN 10 MG/DL (7-18); CALCIUM LEVEL 8.6 MG/DL (8.8-10.2); CARBON DIOXIDE LEVEL 27 MEQ/L (21-32); CHLORIDE LEVEL 106 MEQ/L (98-107); CREATININE FOR GFR 0.83 MG/DL (0.70-1.30); GLOMERULAR FILTRATION RATE > 60.0 (>49); GLUCOSE, FASTING 95 MG/DL (80-110); POTASSIUM SERUM 3.8 MEQ/L (3.5-5.1); SODIUM LEVEL 142 MEQ/L (136-145); TOTAL PROTEIN 6.8 GM/DL (6.4-8.2)
== END ==
LOC: M SFHCPLAZ 07:59
PROVIDERS: ATTEND Nurse Practitioner Family
DX: D64.9 Anemia, unspecified (principal); I10 Essential (primary) hypertension

== ENCOUNTER → 2017-03-15 | Outpatient (CLI) | payer OTHER ==
--- NOTE | 2017-03-15 09:29 | REP ---
CHEST, TWO VIEWS: Two views of the chest are performed and compared to a prior study of 02/13/2017. Previously noted dense right upper lobe infiltrate has improved, but there is still mild residual infiltrate remaining. No infiltrate is seen on the left. Heart is normal in size and the mediastinal silhouette appears unremarkable. There are degenerative changes of the spine. IMPRESSION: Improved right upper lobe infiltrate with mild residual. Recommend continued followup to resolution. Signed by Evans Marie MD 03/15/2017 05:08 P
== END ==
LOC: M WUC 08:06
PROVIDERS: ATTEND Nurse Practitioner Family
DX: J18.1 Lobar pneumonia, unspecified organism (principal)

== ENCOUNTER → 2017-03-20 | Outpatient (CLI) | payer OTHER ==
[2017-03-20 14:10] LABS: ANION GAP 10 MEQ/L (8-16); BLOOD UREA NITROGEN 12 MG/DL (7-18); CALCIUM LEVEL 7.7 MG/DL (8.8-10.2); CARBON DIOXIDE LEVEL 32 MEQ/L (21-32); CHLORIDE LEVEL 96 MEQ/L (98-107); CREATININE FOR GFR 0.82 MG/DL (0.70-1.30); GLOMERULAR FILTRATION RATE > 60.0 (>49); GLUCOSE, FASTING 79 MG/DL (80-110); POTASSIUM SERUM 3.1 MEQ/L (3.5-5.1); SODIUM LEVEL 138 MEQ/L (136-145)
== END ==
LOC: M WUC 10:25
PROVIDERS: ATTEND Nurse Practitioner Family
DX: I10 Essential (primary) hypertension (principal)

== ENCOUNTER → 2017-03-28 | Outpatient (REF) | payer OTHER ==
[2017-03-28 11:00] LABS: BASO # 0.1 K/mm3 (0.0-0.2); BASO % 1.1 % (0.0-1.0); EOS # 0.3 K/mm3 (0.0-0.50); EOS % 3.3 % (0.0-3.0); LARGE UNSTAINED CELL # 0.3 K/mm3 (0.0-0.4); LARGE UNSTAINED CELL % 2.5 % (0.0-4.0); LYMPH # 3.1 K/mm3 (1.5-4.5); LYMPH % 28.1 % (24.0-44.0); MEAN CORPUSCULAR HEMOGLOBIN 31.6 pg (27.0-33.0); MEAN CORPUSCULAR HGB CONC 34.3 g/dl (32.0-36.5); MEAN CORPUSCULAR VOLUME 92.2 fl (80.0-96.0); MONO # 0.7 K/mm3 (0.0-0.8); MONO % 6.8 % (0.0-5.0); NEUTROPHILS % 58.2 % (36.0-66.0); PLATELET COUNT, AUTOMATED 304 k/mm3 (150-450); RED CELL DISTRIBUTION WIDTH 13.9 % (11.5-14.5); WHITE BLOOD COUNT 10.2 K/mm3 (4.0-10.0)
[2017-03-28 11:12] LABS: ANION GAP 10 MEQ/L (8-16); BLOOD UREA NITROGEN 21 MG/DL (7-18); CALCIUM LEVEL 9.8 MG/DL (8.8-10.2); CARBON DIOXIDE LEVEL 27 MEQ/L (21-32); CHLORIDE LEVEL 98 MEQ/L (98-107); CREATININE FOR GFR 0.74 MG/DL (0.70-1.30); GLOMERULAR FILTRATION RATE > 60.0 (>49); GLUCOSE, FASTING 109 MG/DL (80-110); POTASSIUM SERUM 4.1 MEQ/L (3.5-5.1); SODIUM LEVEL 135 MEQ/L (136-145)
== END ==
LOC: M SFHCPLAZ 07:41
PROVIDERS: ATTEND Nurse Practitioner Family
DX: I10 Essential (primary) hypertension (principal); E55.9 Vitamin D deficiency, unspecified

== ENCOUNTER → 2017-04-05 | Outpatient (CLI) | payer OTHER ==
--- NOTE | 2017-04-05 16:26 | REP ---
PET/CT: History: Solitary pulmonary nodule. Comparisons: Comparison chest CT study 02/14/2017 infiltrate and a 9 mm nodular opacity subpleural in location in the right middle lobe. TECHNIQUE: 53 minutes following the intravenous injection of a 10.2 mCi dose of F-18 FDG, three-dimensional PET scintigraphy is acquired from the skull base to the proximal thighs. Triplanar noncontrast CT scanning is acquired through the same anatomic range for attenuation correction, and image registration with scan parameters optimized to minimize radiation exposure to the patient. PET scintigraphy and CT datasets were fused and displayed on a workstation with multiplanar and projection display capability. PET/CT Findings: There is no discernible FDG accumulation in the small 9 mm nodule seen in the right middle lobe. Maximum standard uptake value here is 0.7. The previously noted right upper lobe infiltrate has largely although not completely resolved. There is some visible but non hypermetabolic uptake in the right upper lobe and there is some visible mildly hypermetabolic uptake in the dependent portions of the lower lobes posteriorly adjacent to the chest wall bilaterally. This is more prominent on the right and left. Maximum standard uptake value ranges up to 3.6. The appearance suggests inflammatory disease, possibly chronic aspiration. There is some alveolar opacity corresponding to this. There is diffuse fatty infiltration of the liver. An accessory splenule is seen. No focal hypermetabolic uptake is seen in the liver or spleen. Abdominal uptake and FDG distribution are otherwise unremarkable. There is a 4.0 cm infrarenal abdominal aortic aneurysm. Impression: Some residual inflammatory hypermetabolic uptake pattern in the right upper lobe and in the right and to a lesser extent left lower lobe posteriorly. No other hypermetabolic uptake focus is seen. Fatty infiltration of the liver is seen. An abdominal aortic aneurysm is noted measuring 4.0 cm in greatest AP dimension. Signed by Ron Arriaga MD 04/05/2017 06:39 P
== END ==
LOC: M PLARAD 08:14
PROVIDERS: ATTEND Internal Medicine Pulmonary Disease
DX: R91.8 Other nonspecific abnormal finding of lung field (principal); K76.0 Fatty (change of) liver, not elsewhere classified; I71.4 Abdominal aortic aneurysm, without rupture
CPT/HCPCS: 78815; A9552

== ENCOUNTER 2017-04-14 08:52 | Outpatient (CLI) | payer OTHER ==
[~2017-04-14] VITALS: Ht 182.9 cm; Wt 86.2 kg
[2017-04-14] MEDS ORDERED: NS 1,000 ML IV ONE (09:00)
[2017-04-14] MEDS ORDERED: PROPOFOL 200 MG/20 ML VIAL As Ordered ONE (10:22)
--- NOTE | 2017-04-14 10:50 | ROOR ---
Patient Name: Vinny Maria Procedure Date: 04/14/2017 10:23 AM Date of : 1955 Age: 61 Room: [facility] Gender: Male Note Status: Finalized Procedure: Colonoscopy Indications: Screening for colorectal malignant neoplasm Providers: Abrahan BURTON MD Referring MD: Marlen Alfaro NP Requesting Provider: Medicines: Monitored Anesthesia Care Complications: No immediate complications. Procedure: Pre-Anesthesia Assessment: - The heart rate, respiratory rate, oxygen saturations, blood pressure, adequacy of pulmonary ventilation, and response to care were monitored throughout the procedure. The Colonoscope was introduced through the anus and advanced to the cecum, identified by appendiceal orifice and ileocecal valve. The colonoscopy was performed without difficulty. The patient tolerated the procedure well. The quality of the bowel preparation was good. Findings: The perianal and digital rectal examinations were normal. A 7 mm polyp was found in the cecum. The polyp was flat with central depression or erosion. The polyp was removed with a piecemeal technique using a cold snare. Resection and retrieval were complete. A 2 mm polyp was found in the cecum. The polyp was sessile. The polyp was removed with a jumbo cold forceps. Resection and retrieval were complete. Five sessile polyps were found in the mid sigmoid colon and distal sigmoid colon. The polyps were 3 to 5 mm in size. These polyps were removed with a cold snare. Resection and retrieval were complete. Multiple small-mouthed diverticula were found in the sigmoid colon. Small Internal Hemorrhoids. Impression: - One 7 mm polyp in the cecum, removed piecemeal using a cold snare. Resected and retrieved. - One 2 mm polyp in the cecum, removed with a jumbo cold forceps. Resected and retrieved. - Five 3 to 5 mm polyps in the mid sigmoid colon and in the distal sigmoid colon, removed with a cold snare. Resected and retrieved. - Mild diverticulosis in the sigmoid colon. - Small Internal Hemorrhoids. Recommendation: - Telephone endoscopist for pathology results in 2 weeks. - Repeat colonoscopy in 3 years for surveillance. - If the pathology report is benign, then repeat colonoscopy for surveillance in 3 years. Abrahan Burton MD Abrahan BURTON MD 04/14/2017 10:50:17 AM This report has been signed electronically. Number of Addenda: 0 Note Initiated On: 04/14/2017 10:23 AM Estimated Blood Loss: Estimated blood loss: none.
[2017-04-14 11:10] VITALS: BP 116/65
== END 2017-04-14 11:17 | disposition home or self-care (01) ==
LOC: M OPP 08:52
PROVIDERS: ATTEND Internal Medicine Gastroenterology
DX: Z12.11 Encounter for screening for malignant neoplasm of colon (principal); D12.0 Benign neoplasm of cecum; K63.5 Polyp of colon; K57.30 Diverticulosis of large intestine without perforation or abscess without bleeding; K64.8 Other hemorrhoids; I10 Essential (primary) hypertension; I25.10 Atherosclerotic heart disease of native coronary artery without angina pectoris; D64.9 Anemia, unspecified; E78.00 Pure hypercholesterolemia, unspecified; K21.9 Gastro-esophageal reflux disease without esophagitis; R06.83 Snoring; F41.1 Generalized anxiety disorder; E55.9 Vitamin D deficiency, unspecified; F17.210 Nicotine dependence, cigarettes, uncomplicated; Z79.899 Other long term (current) drug therapy; Z79.82 Long term (current) use of aspirin; Z95.5 Presence of coronary angioplasty implant and graft

== ENCOUNTER → 2017-06-20 | Outpatient (CLI) | payer OTHER ==
--- NOTE | 2017-06-20 09:32 | REP ---
Clinical: Follow-up pulmonary nodule and pneumonia. Comparison: 02/14/2017. Findings: Previously noted large right upper lobe pneumonia has resolved. Chronic stable changes include scattered early emphysematous changes throughout the bilateral upper lobes and right lower lobe. 9 mm nodule in the anterior right middle lobe (image 52) remains stable. No new consolidation, further significant nodule or mass lesion is identified. No pleural effusion. No pneumothorax. Tracheobronchial tree is patent. Mediastinal lymph nodes measure up to approximately 11 mm and are nonspecific and generally improved when compared to prior examination. Atherosclerotic changes to the thoracic aorta and coronary arteries noted without aortic aneurysm. Mild stable cardiomegaly is appreciated without pericardial effusion. Surrounding musculoskeletal structures are intact. Limited upper abdomen demonstrates normal bilateral adrenal glands. Impression: 1. Previous large right upper lobe pneumonia has resolved. 2. A 9 mm soft tissue nodule in the right middle lobe remains stable. Consider 9 - 12 month follow-up to confirm benignity/stability. 3. Chronic stable early emphysematous changes. Signed by Vincenzo Faria MD 06/20/2017 09:24 A
== END ==
LOC: M RAD 07:35
PROVIDERS: ATTEND Internal Medicine Pulmonary Disease
DX: R91.1 Solitary pulmonary nodule (principal)

== ENCOUNTER → 2017-09-13 | Outpatient (CLI) | payer OTHER | LOC: M RAD 06:28 | DX: I71.4 Abdominal aortic aneurysm, without rupture (principal) | CPT/HCPCS: 76775 ==

== ENCOUNTER → 2017-10-11 | Outpatient (CLI) | payer OTHER ==
[2017-10-11 09:44] LABS: ALBUMIN 3.7 GM/DL (3.2-5.2); ALBUMIN/GLOBULIN RATIO 1.06 (1.00-1.93); ALKALINE PHOSPHATASE 102 U/L (45-117); ALT/SGPT 32 U/L (12-78); ANION GAP 8 MEQ/L (8-16); AST/SGOT 21 U/L (7-37); BILIRUBIN,TOTAL 0.6 MG/DL (0.2-1.0); BLOOD UREA NITROGEN 14 MG/DL (7-18); CALCIUM LEVEL 8.5 MG/DL (8.8-10.2); CARBON DIOXIDE LEVEL 29 MEQ/L (21-32); CHLORIDE LEVEL 102 MEQ/L (98-107); CHOLESTEROL LEVEL 118 MG/DL (<200); GLOMERULAR FILTRATION RATE > 60.0 (>49); GLUCOSE, FASTING 102 MG/DL (70-100); HDL CHOLESTEROL 25 MG/DL (>40); LDL CHOLESTEROL 62.4 MG/DL (<100); NON-HDL-C 93 MG/DL; POTASSIUM SERUM 3.7 MEQ/L (3.5-5.1); SODIUM LEVEL 139 MEQ/L (136-145); TOTAL PROTEIN 7.2 GM/DL (6.4-8.2); TRIGLYCERIDES LEVEL 153 MG/DL (<150)
[2017-10-11 09:52] LABS: TOTAL 25(OH) VITAMIN D 44.2 NG/ML (30.0-100.0)
== END ==
LOC: M WUC 08:20
DX: E78.2 Mixed hyperlipidemia (principal); E55.9 Vitamin D deficiency, unspecified

== ENCOUNTER → 2018-01-02 | Outpatient (CLI) | payer OTHER | LOC: M RAD 06:42 | DX: R91.1 Solitary pulmonary nodule (principal); J43.9 Emphysema, unspecified | CPT/HCPCS: 71250 ==

== ENCOUNTER → 2018-04-17 | Outpatient (REF) | payer OTHER ==
[2018-04-17 11:08] LABS: ALBUMIN 3.8 GM/DL (3.2-5.2); ALBUMIN/GLOBULIN RATIO 0.95 (1.00-1.93); ALKALINE PHOSPHATASE 101 U/L (45-117); ALT/SGPT 34 U/L (12-78); ANION GAP 7 MEQ/L (8-16); AST/SGOT 22 U/L (7-37); BILIRUBIN,TOTAL 0.5 MG/DL (0.2-1.0); BLOOD UREA NITROGEN 15 MG/DL (7-18); CALCIUM LEVEL 8.9 MG/DL (8.8-10.2); CARBON DIOXIDE LEVEL 30 MEQ/L (21-32); CHLORIDE LEVEL 99 MEQ/L (98-107); CHOLESTEROL LEVEL 113 MG/DL (<200); CHOLESTEROL RISK RATIO 4.185 (<5); CREATININE FOR GFR 0.81 MG/DL (0.70-1.30); GLOMERULAR FILTRATION RATE > 60.0 (>49); GLUCOSE, FASTING 92 MG/DL (70-100); HDL CHOLESTEROL 27 MG/DL (>40); LDL CHOLESTEROL 56 MG/DL (<100); NON-HDL-C 86 MG/DL; POTASSIUM SERUM 3.6 MEQ/L (3.5-5.1); PSA SCREENING 0.65 NG/ML (< 4.0); SODIUM LEVEL 136 MEQ/L (136-145); TOTAL PROTEIN 7.8 GM/DL (6.4-8.2); TRIGLYCERIDES LEVEL 152 MG/DL (<150)
[2018-04-17 11:18] LABS: TOTAL 25(OH) VITAMIN D 57.9 NG/ML (30.0-100.0)
== END ==
LOC: M SFHCPLAZ 08:06
DX: I10 Essential (primary) hypertension (principal); E55.9 Vitamin D deficiency, unspecified; E78.2 Mixed hyperlipidemia; Z12.5 Encounter for screening for malignant neoplasm of prostate

== ENCOUNTER → 2018-05-14 | Outpatient (CLI) | payer OTHER | LOC: M RAD 06:18 | DX: I71.4 Abdominal aortic aneurysm, without rupture (principal) ==

== ENCOUNTER → 2018-06-27 | Outpatient (CLI) | payer OTHER | LOC: M RAD 06:38 | DX: R91.1 Solitary pulmonary nodule (principal) | CPT/HCPCS: 71250 ==

== ENCOUNTER → 2018-12-14 | Outpatient (CLI) | payer OTHER ==
[~2018-12-14] MED LIST changes: -DRIS50002 PO; +DRIS50003 PO; -FOSI40TA PO; +FOSI40TA3 PO; +IPRA0.00 NEB; -IPRASOL4 NEB
--- NOTE | 2018-12-14 08:09 | REP ---
CT chest without contrast: History: Solitary pulmonary nodule. Comparison is made with prior chest CTs, the most recent which is from June 27, 2018 and the most remote is dated February 14, 2017. CT findings: There has been no change and the perifissural nodule in the right middle lobe, 9 mm in greatest diameter, in the interval since the original CT study of February 14, 2017. This can be considered benign. No other pulmonary nodule is seen. There are emphysematous changes in the upper and lower lobes as before. No pleural or pericardial effusion is seen. Vascular calcification is noted. There are scattered hilar and mediastinal lymph nodes which are unchanged as well in the interval since the 2017 study. There is no adrenal lesion is seen. There is an accessory splenule. There is mild fatty infiltration of the liver. Visualized upper abdominal structures are otherwise unremarkable. Impression: No active disease. Stable tristian fissural nodule right middle lobe unchanged since of February 16, 2017. Emphysematous changes again noted. Electronically Signed by Ron Arriaga MD 12/14/2018 05:19 P
== END ==
LOC: M RAD 07:03
PROVIDERS: ATTEND Internal Medicine Pulmonary Disease
DX: R91.1 Solitary pulmonary nodule (principal)

== ENCOUNTER → 2019-01-03 | Outpatient (CLI) | payer OTHER ==
[2019-01-03 07:38] LABS: ALBUMIN 3.4 GM/DL (3.2-5.2); ALT/SGPT 30 U/L (12-78); BILIRUBIN,TOTAL 0.5 MG/DL (0.2-1.0); BLOOD UREA NITROGEN 14 MG/DL (7-18); CALCIUM LEVEL 8.3 MG/DL (8.8-10.2); CARBON DIOXIDE LEVEL 29 MEQ/L (21-32); CHLORIDE LEVEL 102 MEQ/L (98-107); CREATININE FOR GFR 0.91 MG/DL (0.70-1.30); GLOMERULAR FILTRATION RATE > 60.0 (>49); GLUCOSE, FASTING 114 MG/DL (70-100); POTASSIUM SERUM 3.8 MEQ/L (3.5-5.1); SODIUM LEVEL 139 MEQ/L (136-145); TOTAL PROTEIN 7.4 GM/DL (6.4-8.2)
[2019-01-03 09:27] LABS: TOTAL 25(OH) VITAMIN D 54.3 NG/ML (30.0-100.0)
== END ==
LOC: M LAB 06:47
PROVIDERS: ATTEND Nurse Practitioner Family
DX: I10 Essential (primary) hypertension (principal); E55.9 Vitamin D deficiency, unspecified

== ENCOUNTER → 2019-01-11 | Outpatient (CLI) | payer OTHER ==
--- NOTE | 2019-01-11 09:24 | REP ---
ABDOMINAL AORTIC SONOGRAPHY: HISTORY: Abdominal aortic aneurysm. COMPARISON: Aortic sonography May 14, 2018. SONOGRAPHIC FINDINGS: The proximal abdominal aorta is obscured by abdominal gas at the level of the renal arteries and above today. At mid aorta, the AP by transverse dimensions are 1.9 x 2.0. The distal aorta is again seen to be aneurysmal measuring 4.4 x 4.4 cm in AP by transverse dimension. An 8.7 cm length of infrarenal abdominal aorta is aneurysmally dilated. It does not extend into the iliac arteries. The right and left common iliac arteries measure 0.9 cm each in AP dimension. The flowing lumen measures 2.9 cm in AP dimension. Previous aneurysm dimensions were 4.1 x 4.1 cm. IMPRESSION: 4.4 cm infrarenal abdominal aortic aneurysm. Electronically Signed by Ron Arriaga MD 01/11/2019 03:02 P
== END ==
LOC: M RAD 06:02
PROVIDERS: ATTEND Surgery Vascular Surgery
DX: I71.4 Abdominal aortic aneurysm, without rupture (principal)

== ENCOUNTER → 2019-06-18 | Outpatient (CLI) | payer OTHER ==
[~2019-06-18] MED LIST changes: +OMEP-358 PO; -OMEP20TA PO
--- NOTE | 2019-06-18 09:23 | REP ---
ULTRASOUND OF ABDOMINAL AORTA: Real-time sonographic evaluation of the abdominal aorta performed and compared to a prior study of 01/11/2019. Distal abdominal aortic aneurysm is noted which is fusiform measuring 4.2 x 4.5 cm in maximum AP and transverse dimensions. This is not significantly changed. More proximally AP diameter of abdominal aorta is 2.1 cm just below the diaphragm and 2.5 cm in the mid aspect. Mural thrombus is seen in the fusiform aneurysm with residual lumen measuring 3.1 x 3.0 cm. IMPRESSION: Stable fusiform aneurysm of distal abdominal aorta as discussed above. Electronically Signed by Evans Marie MD 06/19/2019 10:26 A
== END ==
LOC: M RAD 06:16
PROVIDERS: ATTEND Physician Assistant
DX: I71.4 Abdominal aortic aneurysm, without rupture (principal)

== ENCOUNTER → 2019-07-01 | Outpatient (CLI) | payer OTHER ==
--- NOTE | 2019-07-01 07:40 | REP ---
Clinical: Follow up pulmonary nodule. Comparison: 06/27/2018 Technique: Axial noncontrast images from the thoracic inlet to the upper abdomen with coronal and sagittal re-formations. Findings: Mild/moderate emphysematous changes are again appreciated. 5 mm perifissural density along the minor fissure remain stable and likely represents small scar. No further nodule or mass. No consolidation. No effusion. Tracheobronchial tree is patent. Stable mediastinal and hilar lymph nodes are nonspecific and measure up to approximately 15 mm. Mediastinum demonstrates atherosclerotic changes to the thoracic aorta and coronary arteries without aortic aneurysm or cardiomegaly. No pericardial effusion. Musculoskeletal structures are intact. Impression: 1. Small perifissural density along the right middle lobe remains stable and consistent with small scar. 2. Moderate emphysematous changes. 3. No acute mediastinal or pleuroparenchymal process appreciated. Electronically Signed by Vincenzo Faria MD 07/01/2019 07:31 A
== END ==
LOC: M RAD 06:53
PROVIDERS: ATTEND Internal Medicine Pulmonary Disease
DX: R91.8 Other nonspecific abnormal finding of lung field (principal); R91.1 Solitary pulmonary nodule

== ENCOUNTER → 2019-08-27 | Outpatient (CLI) | payer BC ==
[2019-08-27 13:38] LABS: CREATININE, URINE 62.5 MG/DL; MALB URINE SIEMENS 15.5 MG/L; MAU/CREAT RATIO 24.8 MCG/MG (0.0-30.0)
[2019-08-27 13:40] LABS: ALBUMIN 3.7 GM/DL (3.2-5.2); ALT/SGPT 29 U/L (12-78); BILIRUBIN,TOTAL 0.6 MG/DL (0.2-1.0); BLOOD UREA NITROGEN 13 MG/DL (7-18); CALCIUM LEVEL 9.1 MG/DL (8.8-10.2); CARBON DIOXIDE LEVEL 31 MEQ/L (21-32); CHLORIDE LEVEL 98 MEQ/L (98-107); CHOLESTEROL LEVEL 118 MG/DL (<200); CREATININE FOR GFR 0.91 MG/DL (0.70-1.30); GLOMERULAR FILTRATION RATE > 60.0 (>49); GLUCOSE, FASTING 92 MG/DL (70-100); HDL CHOLESTEROL 25 MG/DL (>40); LDL CHOLESTEROL 68 MG/DL (<100); NON-HDL-C 93 MG/DL; POTASSIUM SERUM 4.3 MEQ/L (3.5-5.1); SODIUM LEVEL 136 MEQ/L (136-145); TOTAL 25(OH) VITAMIN D 39.6 NG/ML (30.0-100.0); TOTAL PROTEIN 7.7 GM/DL (6.4-8.2); TRIGLYCERIDES LEVEL 125 MG/DL (<150)
[2019-08-27 13:48] LABS: HEMOGLOBIN A1c 6.2 %
== END ==
LOC: M PLALAB 08:00
PROVIDERS: ATTEND Nurse Practitioner Family
DX: Z12.5 Encounter for screening for malignant neoplasm of prostate (principal); E78.2 Mixed hyperlipidemia; R73.03 Prediabetes; E55.9 Vitamin D deficiency, unspecified; K21.9 Gastro-esophageal reflux disease without esophagitis; I71.4 Abdominal aortic aneurysm, without rupture
CPT/HCPCS: 36415; 80053; 80061; 82043; 82306; 83036; G0103

== ENCOUNTER → 2019-12-27 | Outpatient (CLI) | payer BC ==
--- NOTE | 2019-12-27 10:16 | REP ---
CT ABDOMEN AND PELVIS WITHOUT IV OR ORAL CONTRAST: HISTORY: Abdominal aortic aneurysm. Comparison is made with abdominal aortic sonography June 18, 2019. The CT imaging from PET/CT study dated April 05, [address] FINDINGS: Digital preliminary ocular pathologist view show an unremarkable bowel gas pattern. The lung bases are free of infiltrate. There are emphysematous changes in the lung bases bilaterally. There is mild diffuse fatty infiltration of the liver. Liver is not felt to be enlarged. No focal splenic lesion is seen. Normal adrenal glands are noted. There is an accessory splenule in the left upper quadrant. No abnormalities noted in the gallbladder or pancreas. Small and large intestinal bowel loops are unremarkable. There are prostate calcifications. Urinary bladder is unremarkable. No abdominal wall defect is seen. No retroperitoneal mass or adenopathy is observed. There is an abdominal aortic aneurysm in the infrarenal segment of the abdominal aorta. This measures 4.3 cm in AP dimension today, previously 4.2 centimeters by ultrasound of June 18, 2019. The aneurysm measures 4.4 cm in right to left dimension. No tristian-aneurysmal fibrosis or hematoma is seen. The common iliac arteries are not involved. They are heavily calcified however. The proximal end of the aneurysm is approximately 4 cm distal to the origin of the renal arteries. IMPRESSION: 4.3 cm infrarenal abdominal aortic aneurysm unchanged from the most recent prior ultrasound. Electronically Signed by Ron Arriaga MD 12/27/2019 01:42 P
== END ==
LOC: M RAD 07:31
PROVIDERS: ATTEND Physician Assistant
DX: I71.4 Abdominal aortic aneurysm, without rupture (principal); K76.0 Fatty (change of) liver, not elsewhere classified; J43.9 Emphysema, unspecified

== ENCOUNTER → 2020-05-26 | Outpatient (REF) | payer BC ==
[~2020-05-26] MED LIST changes: -ASPI81TA85 PO; +ASPI81TA86 PO
[2020-05-26 10:33] LABS: ALBUMIN 3.7 GM/DL (3.2-5.2); ALT/SGPT 24 U/L (12-78); BILIRUBIN,TOTAL 0.6 MG/DL (0.2-1.0); BLOOD UREA NITROGEN 12 MG/DL (7-18); CALCIUM LEVEL 9.1 MG/DL (8.8-10.2); CARBON DIOXIDE LEVEL 31 MEQ/L (21-32); CHLORIDE LEVEL 100 MEQ/L (98-107); CREATININE FOR GFR 0.96 MG/DL (0.70-1.30); GLOMERULAR FILTRATION RATE > 60.0 (>49); GLUCOSE, FASTING 104 MG/DL (70-100); POTASSIUM SERUM 3.6 MEQ/L (3.5-5.1); SODIUM LEVEL 137 MEQ/L (136-145); TOTAL PROTEIN 8.1 GM/DL (6.4-8.2)
[2020-05-26 10:58] LABS: HEMOGLOBIN A1c 5.9 %
== END ==
LOC: M PLALAB 08:02
PROVIDERS: ATTEND Nurse Practitioner Family
DX: R73.03 Prediabetes (principal)

== ENCOUNTER → 2020-08-17 | Outpatient (CLI) | payer BC ==
[~2020-08-17] MED LIST changes: +LISI10TA22 PO; -LISI10TA4 PO
--- NOTE | 2020-08-17 08:11 | REP ---
INDICATION: AAA WITHOUT RUPTURE COMPARISON: 12/27/2019 TECHNIQUE: Axial noncontrast images from the lung bases to the pubic symphysis with coronal and sagittal reformations. This CT examination was performed using the following dose reduction techniques: Automated exposure control, adjustment of mA and/or kv according to the patient's size, and use of iterative reconstruction technique. FINDINGS: Moderate to significant diffuse atherosclerotic changes noted involving the aorta and iliac arteries. Infrarenal abdominal aortic aneurysm is again identified and essentially unchanged measuring 4.4 cm maximal AP and transverse diameter tapering to 2.5 x 2.2 cm at the bifurcation to iliac arteries and measuring approximately 7.5 cm in length originating 3 cm below the renal arteries. No periaortic inflammatory changes, fluid or evidence for dissection noted by noncontrast evaluation. Liver, spleen, pancreas, gallbladder, bilateral adrenal glands and kidneys are essentially normal. Mild chronic symmetric perinephric stranding is unchanged. The enteric system is without obstruction or acute inflammatory process. Scattered colonic diverticula noted without acute diverticulitis. Pelvis demonstrates normal bladder and age-appropriate prostate/seminal vesicles. Small fat containing inguinal hernias noted. No ascites. No free air. No adenopathy. Skeletal structures demonstrate age-related degenerative changes. Lung bases demonstrate moderate emphysematous disease. IMPRESSION: 1. Infrarenal abdominal aortic aneurysm essentially unchanged measuring 4.4 cm maximal diameter as described above. 2. Nonacute stable chronic findings. <Electronically signed by Vincenzo Faria > 08/17/20 0806
== END ==
LOC: M RAD 06:55
PROVIDERS: ATTEND Physician Assistant
DX: I71.4 Abdominal aortic aneurysm, without rupture (principal)

== ENCOUNTER → 2021-03-30 | Outpatient (CLI) | payer BC ==
[~2021-03-30] MED LIST changes: +ASPI81TA26 PO; -CEFD1CAP8 PO; +CEFD300C41 PO; +ERGO500029 PO; -FOSI40TA3 PO; +FOSI40TA59 PO; +MAGN400T2 PO; +OM3/1CAP3 PO; +VITMTA PO
[2021-03-30 08:59] LABS: ALT/SGPT 27 U/L (12-78); BILIRUBIN,TOTAL 0.4 MG/DL (0.2-1.0); BLOOD UREA NITROGEN 25 MG/DL (7-18); CALCIUM LEVEL 9.2 MG/DL (8.8-10.2); CARBON DIOXIDE LEVEL 28 MEQ/L (21-32); CHLORIDE LEVEL 98 MEQ/L (98-107); CHOLESTEROL LEVEL 115 MG/DL (<200); CREATININE FOR GFR 0.98 MG/DL (0.70-1.30); GLOMERULAR FILTRATION RATE > 60.0 (>49); GLUCOSE, FASTING 102 MG/DL (70-100); POTASSIUM SERUM 4.2 MEQ/L (3.5-5.1); SODIUM LEVEL 131 MEQ/L (136-145); TRIGLYCERIDES LEVEL 197 MG/DL (<150)
[2021-03-30 09:00] LABS: ALBUMIN 3.5 GM/DL (3.2-5.2); CHOLESTEROL RISK RATIO 4.259 (<5); HDL CHOLESTEROL 27 MG/DL (>40); LDL CHOLESTEROL 49 MG/DL (<100); NON-HDL-C 88 MG/DL; TOTAL PROTEIN 7.8 GM/DL (6.4-8.2)
[2021-03-30 09:18] LABS: CREATININE, URINE 82.6 MG/DL; MALB URINE SIEMENS 10.4 MG/L; MAU/CREAT RATIO 12.5 MCG/MG (0.0-30.0)
[2021-03-30 10:15] LABS: TOTAL 25(OH) VITAMIN D 53.1 NG/ML (30.0-100.0)
== END ==
LOC: M LAB 07:39
PROVIDERS: ATTEND Nurse Practitioner Family
DX: E78.2 Mixed hyperlipidemia (principal); I10 Essential (primary) hypertension; R73.03 Prediabetes; E55.9 Vitamin D deficiency, unspecified; Z12.5 Encounter for screening for malignant neoplasm of prostate
CPT/HCPCS: 36415; 80053; 80061; 82043; 82306; 83036; G0103

== ENCOUNTER → 2021-07-05 | Outpatient (CLI) | payer BC ==
[~2021-07-05] MED LIST changes: +CEFD1CAP8 PO; -CEFD300C41 PO; +FOSI40TA3 PO; -FOSI40TA59 PO; -MAGN400T2 PO; -OM3/1CAP3 PO
== END ==
LOC: M LABSMTC 10:53
PROVIDERS: ATTEND Anesthesiology
DX: Z11.52 Encounter for screening for COVID-19 (principal); Z20.822 Contact with and (suspected) exposure to COVID-19

== ENCOUNTER 2021-07-09 08:41 | Day surgery (SDC) | payer BC ==
[~2021-07-09] VITALS: Ht 182.9 cm; Wt 86.2 kg
[~2021-07-09 08:41] MED LIST changes: +NS 1,000 ML IV ONE
--- OUTSIDE RECORDS SUMMARY | 2021-07-09 08:44 | CCD | Continuity of Care Document ---
Author Author Vinny CASTELLANOS MD Organization Unknown Address [address] [place] [address] Phone [phone] Care Team Providers Care Banquet Houseperson Name Role Phone Marlen Alfaro Lorrie [facility] [phone] Problems Description No Active Problems Social History Type Date Description Comments Sex Unknown ETOH Use 4-6 Per Week Recreational Drug Use Denies Drug Use Tobacco Use Start: 07/31/80 Patient is a current smoker, smo kes every day 1/2 PPD CURRENTLY 1 1/2 PPD HISTORY Smoking Status Reviewed: 07/05/21 Patient is a current smoker, smokes every day 1/2 PPD CURRENTLY 1 1/2 PPD HISTORY Allergies and adverse reactions Description No Known Drug Allergies Medications Active Medications SIG Qnty Indications Ordering Provide r Date Omeprazole 20mg Capsules 1 cap by mouth twice a day Unknown Carvedilol 25mg Tablets 1 tab by mouth twice a day Unknown Fosinopril Sodium 40mg Tablets 1 tab by mouth twice a day Unknown Chlorthalidone 25mg Tablets 1 by mouth every day Unknown Potassium Chloride ER 10Meq Capsul es ER 2 by mouth every day Unknown Paroxetine HCL 40mg Tablets 1 by mouth every day Unknown Vitamin D (Ergocalciferol) 1.25mg (79991 Ut) Capsules 1 cap by mouth every week 12caps Unknown Atorvastatin Calcium 80mg Tablets 1 tab by mouth every day Unknown History Medications Miralax 17GM/Scoop Powder use as directed see dr zaldivar colon preparation instructions 510gm Z86.010 Ned erik Zaldivar MD 03/31/2021 - 08/05/2020 Magnesium Citrate 1.745GM/30ML Minal ution one 10 oz bottle green or clear only, use for additional prep at 2-3 days before procedure 296ml Z86.010 Abrahan Zaldivar MD 03/31/2021 - Immunizations Description No Information Available Vital Signs Date Vital Result Comment 07/05/2021 9:49am BP Systolic 122 mmHg BP Diastolic 82 mmHg Heart Rate 72 /min O2 % BldC Oximetry 96 % Height 72 inches 6'0" Weight 194.00 lb BMI (Body Mass Index) 26.3 kg/m2 [place] Body Weight 178 lb Weight 87.998 kg BSA (Body Surface Area) 2.10 m2 03/31/2021 4:19pm BP Systolic 124 mmHg BP Diastolic 66 mmHg Height 72 inches 6'0" Weight 192.00 lb BMI (Body Mass Index) 26.0 kg/m2 [place] Body Weight 178 lb Weight 87.091 kg BSA (Body Surface Area) 2.09 m2 Results Test Acquired Date Facility Test Result H/L Range Note FVL/[place] 07/05/2021 [facility] SEE IMAGE FVC-Pred 4.91 L FVC-Pre 4.61 L FVC-%Pred-Pre 93 L FVC-LLN 3.92 L Fev1-Pred 3.66 L Fev1-Pre 3.15 L Fev1-%Pred-Pre 86 L Fev1-LLN 2.82 L Fev6-Pred 4.67 L Fev6-Pre 4.56 L Fev6-%Pred-Pre 97 L Fev6-LLN 3.70 L Bey9lis-Uirl 74 % Pxa8cok-Ohi 68 % Yye6tbe-%Pred-Pre 91 % Ngh2hlf-ONM 65 % Qsn3dga-Zllp 95 % Ziq9pwi-Bpm 99 % Jrs0bdb-%Pred-Pre 104 % FEFMax-Pred 9.19 L/E/sec FEFMax-Pre 6.17 L/E/sec FEFMax-%Pred-Pre 67 L/E/sec FEFMax-LLN 6.74 L/E/sec Lso0692-Hleq 2.86 L/E/sec Rmr6100-Zsl 1.89 L/E/sec Ekf2449-%Pred-Pre 65 L/E/sec Ssm6596-YYN 1.17 L/E/sec ExpTime-Pre 6.35 sec Mqn3mcx9-Zqpz 78 % Pmr7cte2-Kll 69 % Wbj0grx7-%Pred-Pre 88 % Poh1tnj0-QWD 69 % Procedures Date Code Description Status 07/05/2021 46147 Tobacco Cessation Counseling Com pleted 07/05/2021 70273 Office/Outpatient Established Mo d MDM 30-39 Min Completed 07/05/2021 01161 Spirometry Completed Medical Devices Description No Information Available Encounters Type Date Location Provider Dx Diagnosis Office Visit 07/05/2021 10:00a [facility] Pulmonary/Thoracic Agustin Castellanos MD R91.1 Solitary pulmonary nodule J43.9 Emphysema, unspecified R91.8 Other nonspecific abnormal f inding of lung field F17.218 Nicotine dependence, cigaret yue, w oth disorders Assessments Date Code Description Provider 07/05/2021 R91.1 Solitary pulmonary nodule Maria Del Rosario Castellanos MD 07/05/2021 J43.9 Emphysema, unspecified Macario Castellanos MD 07/05/2021 R91.8 Other nonspecific abnormal findi ng of lung field Macario Castellanos MD 07/05/2021 F17.218 Nicotine dependence, cigarettes, with other nicotine-induced disorders Macario Castellanos MD 03/31/2021 Z86.010 Personal history of colonic poly ps Abrahan Zaldivar MD 03/31/2021 Z12.11 Encounter for screening for tavares gnant neoplasm of colon Abrahan Zaldivar MD Plan of Treatment Future Appointment(s):* 07/26/2021 9:00 am - Pulmonary Lab at [facility] Pulmonary/Thoracic * 07/09/2021 10:05 am - Abrahan Zaldivar MD at [facility] Gastroenterology Practice 07/05/2021 - Macario Castellanos MD* R91.1 Solitary pulmonary nodule * J43.9 Emphysema, unspecified * R91.8 Other nonspecific abnormal finding of lung field * F17.218 Nicotine dependence, cigarettes, with other nicotine-induced disorders * * Comments:* ~ His previously documented nodule is stable for 2 years and, therefore, low-dose CT scanning for lung cancer surveillance is most prudent, especially, in view of his known emphysema and continued tobacco use. I am not optimistic that he will quit; although, we did discuss it.~ Given his known emphysema, he is due for pulmonary function testing, and this will be arranged. ~ I will see him in return after his CT scan and PFT's. He can, certainly, call sooner if problems arise with which we can be of assistance. * Follow up:* See after testing Functional Status Description No Information Available Mental Status Description No Information Available Referrals Refer to Reason for Referral Status Appt Date Radiology/Procedure LDCT approval Created Macario Castellanos M.D. PULM EMPHYSEMA Scheduled [facility] [address] [place], [place] [address] [phone]
--- OUTSIDE RECORDS SUMMARY | 2021-07-09 08:44 | CCD | Continuity of Care Document ---
Author Author Vinny CASTELLANOS MD Organization Unknown Address [address] [place] [address] Phone [phone] Care Team Providers Care Maintenance Shop Welder Name Role Phone Marlen Alfaro Lor[facility] [phone] Problems Description No Active Problems Social History [...] every day Unknown Vitamin D (Ergocalciferol) 1.25mg (15421 Ut) Capsules 1 cap by mouth every [...] lb BMI (Body Mass Index) 26.3 kg/m2 [place] Body Weight 178 lb Weight 87.998 kg BSA (Body Surface Area) 2.10 m2 03/31/2021 4:19pm BP Systolic 124 mmHg BP Diastolic 66 mmHg Height 72 inches 6'0" Weight 192.00 lb BMI (Body Mass Index) 26.0 kg/m2 [place] Body Weight 178 lb Weight 87.091 kg [...] L Fev6-%Pred-Pre 97 L Fev6-LLN 3.70 L Arb0pgf-Huds 74 % Ykh7ner-Pfs 68 % Kne3jgu-%Pred-Pre 91 % Alt1xqh-QJT 65 % Aeo1rxm-Scyk 95 % Pwi3pbp-Xui 99 % Uoi6pdj-%Pred-Pre 104 % FEFMax-Pred 9.19 L/E/sec FEFMax-Pre 6.17 L/E/sec FEFMax-%Pred-Pre 67 L/E/sec FEFMax-LLN 6.74 L/E/sec Yzd2959-Goqx 2.86 L/E/sec Joe1499-Rad 1.89 L/E/sec Yir1621-%Pred-Pre 65 L/E/sec Fna5279-NHM 1.17 L/E/sec ExpTime-Pre 6.35 sec Wgk4fvl0-Icbl 78 % Bsz0wza9-Whu 69 % Xya7whx3-%Pred-Pre 88 % Aqv3gpx4-AHN 69 % Procedures Description No Information Available Medical Devices Description No Information Available Encounters Description No Information Available Assessments Date Code Description Provider 07/05/2021 R91.1 Solitary pulmonary nodule Maria Del Rosario aly Castellanos MD 07/05/2021 J43.9 Emphysema, unspecified Macario [...] 07/26/2021 9:00 am - Pulmonary Lab at [facility] Pulmonary/Thoracic * 07/09/2021 10:05 am - Abrahan Zaldivar MD at [facility] Gastroenterology Practice 07/05/2021 - Macario Castellanos MD* R91.1 Solitary pulmonary nodule * J43.9 Emphysema, unspecified * R91.8 Other nonspecific abnormal finding of lung field * F17.218 Nicotine dependence, cigarettes, with other nicotine-induced disorders * * Follow up:* See after testing Functional Status Description No Information Available Mental Status Description No Information Available Referrals Refer to Dr Reason for Referral Status Appt Date Macario Castellanos M.D. PULM EMPHYSEMA Scheduled [facility] [address] [place], [place] [address] [phone]
--- OUTSIDE RECORDS SUMMARY | 2021-07-09 08:45 | CCD ---
Author Author [facility] Organization [facility] Address Unknown Phone Unavailable Care Team Providers Care Space Studies Faculty Member Name Role Phone SAHIL DINH MD Unavailable Unavailable SAHIL DINH MD Unavailable Unavailable SAHIL DINH MD Unavailable Unavailable SAHIL DINH MD Unavailable Unavailable SAHIL DINH MD Unavailable Unavailable SAHIL DINH MD Unavailable Unavailable SAHIL DINH MD Unavailable Unavailable SAHIL DINH MD Unavailable Unavailable SAHIL DINH MD Unavailable Unavailable SAHIL DINH MD Unavailable Unavailable SAHIL DINH MD Unavailable Unavailable SAHIL DINH MD Unavailable Unavailable REINDL, SAHIL SLATER Unavailable Unavailable REINDL, SAHIL SLATER Unavailable Unavailable REINDL, SAHIL SLATER Unavailable Unavailable REINDL, SAHIL SLATER Unavailable Unavailable REINDL, SAHIL SLATER Unavailable Unavailable REINDL, SAHIL SLATER Unavailable Unavailable REINDL, SAHIL SLATER Unavailable Unavailable REINDL, SAHIL SLATER Unavailable Unavailable REINDL, SAHIL SLATER Unavailable Unavailable REINDL, SAHIL SLATER Unavailable Unavailable REINDL, SAHIL SLATER Unavailable Unavailable REINDL, SAHIL SLATER Unavailable Unavailable REINDL, SAHIL SLATER Unavailable Unavailable REINDL, SAHIL SLATER Unavailable Unavailable REINDL, SAHIL SLATER Unavailable Unavailable REINDL, SAHIL SLATER Unavailable Unavailable REINDL, SAHIL SLATER Unavailable Unavailable REINDL, SAHIL SLATER Unavailable Unavailable REINDL, SAHIL SLATER Unavailable Unavailable REINDL, SAHIL SLATER Unavailable Unavailable REINDL, SAHIL SLATER Unavailable Unavailable REINDL, SAHIL SLATER Unavailable Unavailable REINDL, SAHIL SLATER Unavailable Unavailable REINDL, SAHIL SLATER Unavailable Unavailable REINDL, SAHIL SLATER Unavailable Unavailable REINDL, SAHIL SLATER Unavailable Unavailable REINDL, SAHIL SLATER Unavailable Unavailable REINDL, SAHIL SLATER Unavailable Unavailable REINDL, SAHIL SLATER Unavailable Unavailable REINDL, SAHIL SLATER Unavailable Unavailable NOEL, H PASTORA [employer] C[employer] UNIT MANAGER Unavailable Unavailable NOEL, H PASTORA CRITICAL CARE UNIT MANAGER Unavailable Unavailable NOEL, H PASTORA CRITICAL CARE UNIT MANAGER Unavailable Unavailable NOEL, H PASTORA CRITICAL CARE UNIT MANAGER Unavailable Unavailable NOEL, H PASTORA CRITICAL CARE UNIT MANAGER Unavailable Unavailable NOEL, H PASTORA CRITICAL CARE UNIT MANAGER Unavailable Unavailable NOEL, H PASTORA CRITICAL CARE UNIT MANAGER Unavailable Unavailable NOEL, H PASTORA CRITICAL CARE UNIT MANAGER Unavailable Unavailable NOEL, H PASTORA CRITICAL CARE UNIT MANAGER Unavailable Unavailable NOEL, H PASTORA CRITICAL CARE UNIT MANAGER Unavailable Unavailable NOEL, H PASTORA CRITICAL CARE UNIT MANAGER Unavailable Unavailable NOEL, H PASTORA CRITICAL CARE UNIT MANAGER Unavailable Unavailable NOEL, H PASTORA CRITICAL CARE UNIT MANAGER Unavailable Unavailable NOEL, H PASTORA CRITICAL CARE UNIT MANAGER Unavailable Unavailable NOEL, H PASTORA CRITICAL CARE UNIT MANAGER Unavailable Unavailable NOEL, H PASTORA CRITICAL CARE UNIT MANAGER Unavailable Unavailable NOEL, H PASTORA CRITICAL CARE UNIT MANAGER Unavailable Unavailable NOEL, H PASTORA CRITICAL CARE UNIT MANAGER Unavailable Unavailable NOEL, H PASTORA CRITICAL CARE UNIT MANAGER Unavailable Unavailable NOEL, H PASTORA CRITICAL CARE UNIT MANAGER Unavailable Unavailable NOEL, H PASTORA CRITICAL CARE UNIT MANAGER Unavailable Unavailable NOEL, H PASTORA CRITICAL CARE UNIT MANAGER Unavailable Unavailable NOEL, H PASTORA CRITICAL CARE UNIT MANAGER Unavailable Unavailable NOEL, H PASTORA CRITICAL CARE UNIT MANAGER Unavailable Unavailable NOEL, H PASTORA CRITICAL CARE UNIT MANAGER Unavailable Unavailable NOEL, H PASTORA CRITICAL CARE UNIT MANAGER Unavailable Unavailable NOEL, H PASTORA CRITICAL CARE UNIT MANAGER Unavailable Unavailable NOEL, H PASTORA CRITICAL CARE UNIT MANAGER Unavailable Unavailable NOEL, H PASTORA CRITICAL CARE UNIT MANAGER Unavailable Unavailable NOEL, H PASTORA CRITICAL CARE UNIT MANAGER Unavailable Unavailable NOEL, H PASTORA CRITICAL CARE UNIT MANAGER Unavailable Unavailable NOEL, H PASTORA CRITICAL CARE UNIT MANAGER Unavailable Unavailable NOEL, H PASTORA CRITICAL CARE UNIT MANAGER Unavailable Unavailable NOEL, H PASTORA CRITICAL CARE UNIT MANAGER Unavailable Unavailable NOEL, H PASTORA CRITICAL CARE UNIT MANAGER Unavailable Unavailable NOEL, H PASTORA CRITICAL CARE UNIT MANAGER Unavailable Unavailable NOEL, H PASTORA CRITICAL CARE UNIT MANAGER Unavailable Unavailable NOEL, H PASTORA CRITICAL CARE UNIT MANAGER Unavailable Unavailable NOEL, H PASTORA CRITICAL CARE UNIT MANAGER Unavailable Unavailable NOEL, H PASTORA CRITICAL CARE UNIT MANAGER Unavailable Unavailable NOEL, H PASTORA CRITICAL CARE UNIT MANAGER Unavailable Unavailable NOEL, H PASTORA CRITICAL CARE UNIT MANAGER Unavailable Unavailable NOEL, H PASTORA CRITICAL CARE UNIT MANAGER Unavailable Unavailable NOEL, H PASTORA CRITICAL CARE UNIT MANAGER Unavailable Unavailable NOEL, H PASTORA CRITICAL CARE UNIT MANAGER Unavailable Unavailable NOEL, H PASTORA CRITICAL CARE UNIT MANAGER Unavailable Unavailable NOEL, H PASTORA CRITICAL CARE UNIT MANAGER Unavailable Unavailable NOEL, H PASTORA CRITICAL CARE UNIT MANAGER Unavailable Unavailable NOEL, H PASTORA CRITICAL CARE UNIT MANAGER Unavailable Unavailable NOEL, H PASTORA CRITICAL CARE UNIT MANAGER Unavailable Unavailable NOEL, H PASTORA CRITICAL CARE UNIT MANAGER Unavailable Unavailable NOEL, H PASTORA CRITICAL CARE UNIT MANAGER Unavailable Unavailable NOEL, H PASTORA CRITICAL CARE UNIT MANAGER Unavailable Unavailable NOEL, H PASTORA CRITICAL CARE UNIT MANAGER Unavailable Unavailable NOEL, H PASTORA CRITICAL CARE UNIT MANAGER Unavailable Unavailable NOEL, H PASTORA CRITICAL CARE UNIT MANAGER Unavailable Unavailable Dobrinski, S Hua JEWELRY INTERNSHIP Unavailable Unavailable Dobrinski, S Hua [employer] INTERNSHIP Unavailable Unavailable Dobrinski, S Hua [employer] INTERNSHIP Unavailable Unavailable Dobrinski, S Hua JEWELRY INTERNSHIP Unavailable Unavailable Dobrinski, S Hua JEWELRY INTERNSHIP Unavailable Unavailable Dobrinski, S Hua JEWELRY INTERNSHIP Unavailable Unavailable Dobrinski, S Hua JEWELRY INTERNSHIP Unavailable Unavailable Dobrinski, S Hua JEWELRY INTERNSHIP Unavailable Unavailable Dobrinski, S Hua JEWELRY INTERNSHIP Unavailable Unavailable Dobrinski, S Hua [employer] INTERNSHIP Unavailable Unavailable Dobrinski, S Hua [employer] INTERNSHIP Unavailable Unavailable Dobrinski, S Hua [employer] INTERNSHIP Unavailable Unavailable Dobrinski, S Hua [employer] INTERNSHIP Unavailable Unavailable Dobrinski, S Hua [employer] INTER[employer] Unavailable Unavailable Dobrinski, S Hua [employer] Unavailable Unavailable Fons, M Nehal [employer] Unavailable Unavailable Fons, M Nehal [employer] Unavailable Unavailable Fons, M Nehal [employer] Unavailable Unavailable Fons, M Nehal [employer] Unavailable Unavailable Fons, M Nehal [employer] Unavailable Unavailable Fons, M Nehal [employer] Unavailable Unavailable Fons, M Nehal [employer] Unavailable Unavailable Fons, M Nehal [employer] INTERNSH[employer] Unavailable Unavailable Fons, M Nehal [employer] INTER[employer] Unavailable Unavailable Fons, M Nehal [employer] Unavailable Unavailable Fons, M Nehal [employer] INTER[employer] Unavailable Unavailable Fons, M Neahl [employer] Unavailable Unavailable Fons, M Nehal [employer] INTERNSH[employer] Unavailable Unavailable Fons, M Nehal [employer] INTERNSHIP Unavailable Unavailable Fons, M Nehal [employer] INTERNSH[employer] Unavailable Unavailable Fons, M Nehal [employer] INTERNSH[employer] Unavailable Unavailable Fons, M Nehal [employer]RY INTERNSH[employer] Unavailable Unavailable Fons, M Nehal [employer]RY INTERNSHIP Unavailable Unavailable Fons, M Nehal JEWELRY INTERNSHIP Unavailable Unavailable Fons, M Nehal JEWELRY INTERNSHIP Unavailable Unavailable Fons, M Nehal JEWELRY INTERNSHIP Unavailable Unavailable Fons, M Nehal JEWELRY INTERNSHIP Unavailable Unavailable Fons, M Nehal JEWELRY INTERNSHIP Unavailable Unavailable Fons, M Nehal JEWELRY INTERNSHIP Unavailable Unavailable Fons, M Nehal JEWELRY INTERNSHIP Unavailable Unavailable Fons, M Nehal JEWELRY INTERNSHIP Unavailable Unavailable Fons, M Nehal JEWELRY INTERNSHIP Unavailable Unavailable Fons, M Nehal JEWELRY INTERNSHIP Unavailable Unavailable Fons, M Nehal JEWELRY INTERNSHIP Unavailable Unavailable Fons, M Nehal JEWELRY INTERNSHIP Unavailable Unavailable Fons, M Nehal JEWELRY INTERNSHIP Unavailable Unavailable Fons, M Nehal JEWELRY INTERNSHIP Unavailable Unavailable Fons, M Nehal JEWELRY INTERNSHIP Unavailable Unavailable Fons, M Nehal JEWELRY INTERNSHIP Unavailable Unavailable Fons, M Nehal JEWELRY INTERNSHIP Unavailable Unavailable Fons, M Nehal JEWELRY INTERNSHIP Unavailable Unavailable Fons, M Nehal JEWELRY INTERNSHIP Unavailable Unavailable Fons, M Nehal JEWELRY INTERNSHIP Unavailable Unavailable Fons, M Nehal JEWELRY INTERNSHIP Unavailable Unavailable Fons, M Nehal JEWELRY INTERNSHIP Unavailable Unavailable Fons, M Nehal JEWELRY INTERNSHIP Unavailable Unavailable Fons, M Nehal JEWELRY INTERNSHIP Unavailable Unavailable Fons, M Nehal JEWELRY INTERNSHIP Unavailable Unavailable Fons, M Nehal JEWELRY INTERNSHIP Unavailable Unavailable Fons, M Nehal JEWELRY INTERNSHIP Unavailable Unavailable Fons, M Nehal JEWELRY INTERNSHIP Unavailable Unavailable Fons, M Nehal JEWELRY INTERNSHIP Unavailable Unavailable Fons, M Nehal JEWELRY INTERNSHIP Unavailable Unavailable Fons, M Nehal JEWELRY INTERNSHIP Unavailable Unavailable Fons, M Nehal JEWELRY INTERNSHIP Unavailable Unavailable Fons, M Nehal JEWELRY INTERNSHIP Unavailable Unavailable Fons, M Nehal [employer]RY INTERNSHIP Unavailable Unavailable Fons, M Nehal [employer] INTERNSHIP Unavailable Unavailable Esquivel, L Erika RPA Unavailable Unavailable Esquivel, L Erika RPA Unavailable Unavailable Esquivel, L Erika RPA Unavailable Unavailable Esquivel, L Erika RPA Unavailable Unavailable Esquivel, L Erika RPA Unavailable Unavailable Esquivel, L Erika RPA Unavailable Unavailable Esquivel, L Erika RPA Unavailable Unavailable Esquivel, L Erika RPA Unavailable Unavailable Esquivel, L Erika RPA Unavailable Unavailable Esquivel, L Erika RPA Unavailable Unavailable Esquivel, L Erika RPA Unavailable Unavailable Esquivel, L Erika RPA Unavailable Unavailable Esquivel, L Erika RPA Unavailable Unavailable Esquivel, L Erika RPA Unavailable Unavailable Esquivel, L Erika RPA Unavailable Unavailable Esquivel, L Erika RPA Unavailable Unavailable Esquivel, L Erika RPA Unavailable Unavailable Esquivel, L Erika RPA Unavailable Unavailable Esquivel, L Eirka RPA Unavailable Unavailable Esquivel, L Erika RPA Unavailable Unavailable Esquivel, L Erika RPA Unavailable Unavailable Esquivel, L Erika RPA Unavailable Unavailable Esquivel, L Erika RPA Unavailable Unavailable Esquivel, L Erika RPA Unavailable Unavailable Esquivel, L Erika RPA Unavailable Unavailable Esquivel, L Erika RPA Unavailable Unavailable Esquivel, L Erika RPA Unavailable Unavailable Esquivel, L Erika RPA Unavailable Unavailable Esquivel, L Erika RPA Unavailable Unavailable Esquivel, L Erika RPA Unavailable Unavailable Esquivel, L Erika RPA Unavailable Unavailable Esquivel, L Erika RPA Unavailable Unavailable Rae, Donato Sorto MD Unavailable Unavailable Rae, Donato Sorto MD Unavailable Unavailable Rae, Donato Sorto MD Unavailable Unavailable Rae, Donato Sorto MD Unavailable Unavailable Rae, Donato Sorto MD Unavailable Unavailable Rae, Donato Sorto MD Unavailable Unavailable Rae, Donato Sorto MD Unavailable Unavailable Rae, Donato Sorto MD Unavailable Unavailable Rae, Donato Sorto MD Unavailable Unavailable Rae, Donato Sorto MD Unavailable Unavailable Rae, Donato Sorto MD Unavailable Unavailable Rae, Donato Sorto MD Unavailable Unavailable Rae, Donato Sorto MD Unavailable Unavailable Rae, Donato Sorto MD Unavailable Unavailable Rae, Donato Sorto MD Unavailable Unavailable Rae, Donato Sorto MD Unavailable Unavailable Rae, Donato Sorto MD Unavailable Unavailable Rae, Donato Sorto MD Unavailable Unavailable Rae, Donato Sorto MD Unavailable Unavailable Rae, Donato Sorto MD Unavailable Unavailable Rae, Donato Sorto MD Unavailable Unavailable Rae, Donaot Sorto MD Unavailable Unavailable Rae, Donato Sorto MD Unavailable Unavailable Rae, Donato Sorto MD Unavailable Unavailable Rae, Donato Sorto MD Unavailable Unavailable Rae, Donato Sorto MD Unavailable Unavailable Rae, Donato Sorto MD Unavailable Unavailable Rae, Donato Sorto MD Unavailable Unavailable Rae, Donato Sorto MD Unavailable Unavailable Rae, Donato Sorto MD Unavailable Unavailable Rae, Donato Sorto MD Unavailable Unavailable Rae, Donato Sorto MD Unavailable Unavailable Rae, Donato Sorto MD Unavailable Unavailable Rae, Donato Sorto MD Unavailable Unavailable Rae, Donato Sorto MD Unavailable Unavailable Rae, Donato Sorto MD Unavailable Unavailable Rae, Donato Sorto MD Unavailable Unavailable Rae, Donato Sorto MD Unavailable Unavailable Rae, Donato Sorto MD Unavailable Unavailable Rae, Donato Sorto MD Unavailable Unavailable Rae, Donato Sorto MD Unavailable Unavailable Rae, Donato Sorto MD Unavailable Unavailable Rae, Donato Sorto MD Unavailable Unavailable Rae, Donato Sorto MD Unavailable Unavailable Rae, Donato Sorto MD Unavailable Unavailable Rae, Donato Sorto MD Unavailable Unavailable Rae, Donato Sorto MD Unavailable Unavailable Rae, Donato Sorto MD Unavailable Unavailable Rae, Donato Sorto MD Unavailable Unavailable Rae, Donato Sorto MD Unavailable Unavailable Rae, Donato Sorto MD Unavailable Unavailable Rae, Donato Sorto MD Unavailable Unavailable Rae, Donato Sorto MD Unavailable Unavailable Rae, Donato Sorto MD Unavailable Unavailable Rae, Donato Sorto MD Unavailable Unavailable Re-disclosure Warning The records that you are about to access may contain information from federally-assisted alcohol or drug abuse programs. If such information is present, then the following federally mandated warning applies: This information has been disclosed to you from records protected by federal confidentiality rules (42 CFR part 2). The federal rules prohibit you from making any further disclosure of this information unless further disclosure is expressly permitted by the written consent of the person to whom it pertains or as otherwise permitted by 42 CFR part 2. A general authorization for the release of medical or other information is NOT sufficient for this purpose. The Federal rules restrict any use of the information to criminally investigate or prosecute any alcohol or drug abuse patient.The records that you are about to access may contain highly sensitive health information, the redisclosure of which is protected by Article 27-F of the [facility] Public Health law. If you continue you may have access to information: Regarding HIV / AIDS; Provided by facilities licensed or operated by the [facility] Office of Mental Health; or Provided by the [facility] Office for People With Developmental Disabilities. If such information is present, then the following [facility] mandated warning applies: This information has been disclosed to you from confidential records which are protected by state law. State law prohibits you from making any further disclosure of this information without the specific written consent of the person to whom it pertains, or as otherwise permitted by law. Any unauthorized further disclosure in violation of state law may result in a fine or chcf sentence or both. A general authorization for the release of medical or other information is NOT sufficient authorization for further disc losure. Family History Family Member Name Family Member Gender Family Member Status Date o f Status Description Data Source(s) Unknown Male Problem MEDENT ([facility], ) () Unknown Male Problem MEDENT ([facility] () Encounters Encounter Providers Location Date Indications Data Source(s ) Outpatient Attender: Macario Ahn/Sophia/Juan Miguel/Dalton escoto 07/05/2021 09:00:00 AM EST MEDENT ([facility], ) Outpatient Attender: Nehal Lofton FNPReferrer: PASTORA MAIN .[email or web address] 05/26/2021 08:49:38 AM EDT - 05/26/2021 09:54:17 AM EDT [facility] Outpatient Attender: Hua COLINDRES 04/12/2021 08:13:00 AM EDT - 04/12/2021 08:20:31 AM EDT [facility] ([facility]) Outpatient Attender: SAHIL Anh/Sophia/Juan Miguel/Bhavik linton 03/31/2021 03:30:00 PM EDT [facility] ([facility] [place] [address] [address] 03/31/2021 12:00:00 AM EDT eCW1 ([facility]) [place] [address] [address] 12/30/2020 12:00:00 AM EDT eCW1 ([facility]) [place] [address] [facility] [address] 11/27/2020 12:00:00 AM EDT eCW1 ([facility]) Outpatient Attender: Erika Ahn/Sophia/Juan Miguel/Dalton escoto 10/15/2020 09:00:00 AM EDT [facility] ([facility] [place] [address] [facility] [address] 08/25/2020 12:00:00 AM EST eCW1 ([facility]) [place] [address] [address] 05/29/2020 12:00:00 AM EDT eCW1 ([facility]) Immunizations Vaccine Date Status Description Data Source(s) Pneumococcal conjugate PCV 13 03/31/2021 10:58:00 AM EDT completed eCW1 ([facility]) COVID-19 dose #1 given elsewhere Unspecified 11/27/2020 07:2 3:00 AM EDT completed eCW1 ([facility]) COVID-19 dose #2 given elsewhere Unspecified 11/27/2020 07:2 3:00 AM EDT completed eCW1 ([facility]) COVID-19 dose #1 given elsewhere Unspecified 11/27/2020 07:2 3:00 AM EDT completed eCW1 ([facility]) COVID-19 dose #2 given elsewhere Unspecified 11/27/2020 07:2 3:00 AM EDT completed eCW1 ([facility]) COVID-19 dose #2 given elsewhere Unspecified 11/27/2020 07:2 3:00 AM EDT completed eCW1 ([facility]) COVID-19 dose #1 given elsewhere Unspecified 11/27/2020 07:2 3:00 AM EDT completed eCW1 ([facility]) COVID-19 VACCINE Moderna 11/25/2020 12:00:00 AM EDT completed [facility] Vaccine Series Complete: NOThis Data was Submitted to [facility] Via Dop[facility]. COVID-19 VACC,MRNA(MODERNA)/PF 11/25/2020 12:00:00 AM EDT completed [facility] influenza, recombinant, quadrIvalent,injectable, prese rvative free 05/29/2020 07:33:00 AM EDT completed eCW1 ([facility]) influenza, recombinant, quadrIvalent,injectable, prese rvative free 05/29/2020 07:33:00 AM EDT completed eCW1 ([facility]) influenza, recombinant, quadrIvalent,injectable, prese rvative free 05/29/2020 07:33:00 AM EDT completed eCW1 ([facility]) influenza, recombinant, quadrIvalent,injectable, prese rvative free 05/29/2020 07:33:00 AM EDT completed eCW1 ([facility]) influenza, recombinant, quadrIvalent,injectable, prese rvative free 05/29/2020 07:33:00 AM EDT completed eCW1 ([facility]) Medications Medication Brand Name Start Date Product Form Dose Route Admi nistrative Instructions Pharmacy Instructions Status Indications Reaction Description Data Source(s) Omeprazole 20 MG Delayed Release Oral Ca psule omeprazole (PriLOSEC) 20 MG capsule omeprazole (PriLOSEC) 20 MG capsule 05/17/2021 12:00:00 AM EDT active [facility] Potassium Chloride 10 MEQ Extended Relea se Oral Tablet potassium chloride (K- DUR) 10 MEQ tablet potassium chloride (K-DUR) 10 MEQ tablet 05/17/2021 12 :00:00 AM EDT active [facility] carvedilol 25 MG Oral Tablet carvedilol (COREG) 25 MG tablet carvedilol (COREG) 25 MG tablet 05/17/2021 12:00:00 AM EDT active [facility] Ergocalciferol 43485 UNT Oral Capsule vi tamin D, Ergocalciferol, 1.25 MG (00315 UT) CAPS vitamin D, Ergocalciferol, 1.25 MG (17808 UT) CAPS 12:00:00 AM EDT active [facility] atorvastatin 80 MG Oral Tablet atorvastatin (LIPITOR) 80 MG tablet atorvastatin (LIPITOR) 80 MG tablet 04/15/2021 12:00:00 AM EDT active [facility] Fosinopril Sodium 40 MG Oral Tablet fosinopril (MONOPR IL) 40 MG tablet fosinopril (MONOPRIL) 40 MG tablet 04/15/2021 12:00:00 AM EDT active [facility] POLYETHYLENE GLYCOL 3350 142 MG/ML Oral Solution [Miralax] M iralax 03/31/2021 12:00:00 AM EDT completed MEDENT ([facility], ) magnesium citrate 58.2 MG/ML Oral Solution Magnesium Citrate 03/31/2021 12:00:00 AM EDT completed MEDENT ([facility], ) Magnesium Hydroxide 80 MG/ML Oral Suspension Milk Of Magnesi a 09/23/2020 12:00:00 AM EST ORAL active M EDENT ([facility], ) Suprep Bowel Prep Kit Suprep Bowel Prep Kit 09/23/2020 12:00:00 AM EST completed MEDENT ([facility], ) Insurance Providers Payer name Policy type / Coverage type Policy ID Covered green party ID Covered green party's relationship to wiley Policy Wiley Plan Information [employer]IF[employer] SOLUTIONS [id number] SP [id number] LIF[employer]IME BENEFIT SOLUTIONS [id number] SP [id number] [facility] [id number] [place] [id number] [id number] [facility] [id number] [employer] emp [id number] Employe e [id number] [employer] [place] PPO 302/307 [id number] SP [id number] LIF[employer]IME BENEFIT SOLUTIONS [id number] SP [id number] ANSI-Not a Secondary Insurance [id number] ANSI-Not a Secondary Insurance [id number] Lifetime Benefits [facility] JustShareIt Maintenance Organization (HMO) 10 [id number] Self [id number] ANSI-Not a Secondary Insurance [id number] [employer]EN[employer] SOLUTIONS [id number] SP [id number] ANSI-Not a Secondary Insurance [id number] LIF[employer]IME BENEFIT SOLUTIONS [id number] SP [id number] ANSI-Not a Secondary Insurance [id number] ANSI-Not a Secondary Insurance [id number] ANSI-Not a Secondary Insurance [id number] [employer]IF[employer] B[employer] SOLUTIONS [id number] SP [id number] Lifetime Benefit Solution Commercial [id number] Self 1 [id number] Lifetime Benefits [facility] Health Maintenance Organization (HMO) 10 [id number] Self [id number] LIF[employer]IME BENEF[employer] SOLUTIONS [id number] SP [id number] Lifetime Benefits [facility] Health Maintenance Organization (HMO) [id number] Self SELF PAY [id number] SP [id number] [facility] [place] [facility] [place]S [id number] SP [id number] [facility] [id number] [facility] [id number] [employer] [place] PPO 302/307 [id number] SP [id number] [employer]-BS PPO 306 [id number] SP [id number] [employer]-BS PPO 306 [id number] SP [id number] [employer]-BS PPO 306 [id number] SP [id number] [employer]BS B [id number] S [id number] Problems, Conditions, and Diagnoses Code Display Name Description Problem Type Effective Dates Data Source(s) F17.200 Nicotine dependence, unspecified, uncomp licated Nicotine dependence, unspecified, uncomp Diagnosis 05/26/2021 08:49:38 AM EDT [facility] E78.49 Other hyperlipidemia Other hyperlipidemia Diagnosis 05/26/2021 08:49:38 AM EDT [facility] I10 Essential (primary) hypertension Essential (primary) h ypertension Diagnosis 05/26/2021 08:49:38 AM EDT [facility] I25.10 Atherosclerotic heart diseas e of [place] coronary artery without angina pectoris Atherosclerotic heart disease of [place] Diagnosis 05/26/2021 08:49:38 AM EDT [facility] F17.200 Smoker Smoker [id number] 05/26/2021 12:00:00 AM ED T [facility] E78.49 Other hyperlipidemia Other hyperlipidemia [id number] 05/26/2021 12:00:00 AM EDT [facility] I10 Hypertension Hypertension [id number] 05/26/2021 12:00:00 A M EDT [facility] I25.10 Coronary artery disease invo lving [place] coronary artery of [place] heart without angina pectoris Coronary artery disease involving [place] coronary artery of [place] heart without angina pectoris [id number] 05/26/2021 12:00:00 AM EDT [facility] J43.9 [id number] Pulmonary emphysema, unspecified emphysem a type Problem 03/31/2021 12:00:00 AM EDT eCW1 ([facility]) R73.03 Prediabetes Pre-diabetes Problem 05/29/2020 12:00:00 AM EDT eCW1 ([facility]) Surgeries/Procedures Procedure Description Date Indications Data Source(s) Spirometry 07/05/2021 12:00:00 AM ZOFIA JIMENEZ ([facility], ) OFFICE OUTPATIENT VISIT 25 MINUTES 07/05/2021 12:00:00 AM EST MEDENT ([facility], ) TOBACCO USE CESSATION INTERMEDIATE 3-10 MINUTES 2020 12:00:00 AM EST MED[facility] ([facility], ) ECG ROUTINE ECG W/LEAST 12 LDS W/I&R <td>POCT AMB EKG</td><td>Routine</td><td>05/26/2021 10:02 AM EDT</td><td> Coronary artery disease involving [place] coronary artery of [place] heart without angina pectoris</td><td> </td> 05/26/2021 10:02:00 AM EDT Coronary artery disease involving [place] coronary artery of [place] heart without angina pectoris [facility] Coronary artery disease involving [place] coronary artery of [place] heart without angina pectoris OFFICE OUTPATIENT NEW 30 MINUTES 03/31/2021 12:00:00 A M EDT DENISE ([facility], ) HEMOGLOBIN GLYCOSYLATED A1C <td>HEMOGLOBIN A1C</td><td>Routine</td><td>03/30/2021</td><td></td><td> </td> 03/30/2021 12:00:00 AM EDT [facility] HEPATIC FUNCTION PANEL <td>HEPATIC FUNCTION PANEL</td><td>Routine</td><td>03/30/2021</td><td></td><td> </td> 03/30/2021 12:00:00 AM EDT [facility] LIPID PANEL <td>LIPID PANEL</td><td>Rout ine</td><td>03/30/2021</td><td></td><td> </td> 03/30/2021 12:00:00 AM EDT [facility] BASIC METABOLIC PANEL CALCIUM TOTAL <td>BASIC METABOLI C PANEL</td><td>Routine</td><td>03/30/2021</td><td></td><td> </td> 03/30/2021 12:00:00 AM EDT [facility] OFFICE OUTPATIENT VISIT 15 MINUTES 10/15/2020 12:00:00 AM EDT DENISE ([facility], ) Results ID Date Data Source [id number] 07/05/2021 11:00:00 AM EST [facility] Name Value Range Interpretation Code Description Data Sol rce(s) Supporting Document(s) SARS-CoV-2 (COVID-19) RNA [Presence] in Respiratory specimen by PATRICIA with probe detection Not Detected [facility] This lab was ordered by [facility] and reported by [employer] ID Date Data Source [id number] 07/05/2021 09:45:00 AM EST MEDENT ([facility], ) Name Value Range Interpretation Code Description Data Sol rce(s) Supporting Document(s) PDFReport Laboratory test result MEDENT ([facility], ) FVC-Pred 4.91 L MED[facility] ([facility]) FVC-Pre 4.61 L [facility] ([facility]) FVC-LLN 3.92 L [facility] ([facility]) FVC-%Pred-Pre 93 L [facility] ([facility]) Fev1-Pre 3.15 L [facility] ([facility]) Fev1-Pred 3.66 L [facility] ([facility]) Fev6-Pred 4.67 L [facility] ([facility]) Fev1-%Pred-Pre 86 L [facility] ([facility]) Fev1-LLN 2.82 L [facility] ([facility]) Fev6-%Pred-Pre 97 L [facility] ([facility]) Fev6-Pre 4.56 L [facility] ([facility]) Fev6-LLN 3.70 L [facility] ([facility]) Bsa5zdx-Hnp 68 % [facility] ([facility]) Dhj6wki-Twlr 74 % [facility] ([facility]) Csb8lcv-MXP 65 % [facility] ([facility]) Cvv6uco-%Pred-Pre 91 % [facility] ([facility]) Izo8fyk-Rxbl 95 % [facility] ([facility]) FEFMax-Pred 9.19 L/E/sec [facility] ([facility]) Rdb7suf-%Pred-Pre 104 % [facility] ([facility]) Znt6toc-Qvp 99 % [facility] ([facility]) FEFMax-Pre 6.17 L/E/sec [facility] ([facility]) FEFMax-%Pred-Pre 67 L/E/sec [facility] ([facility], ) Hsf6849-Aoy 1.89 L/E/sec [facility] ([facility]) FEFMax-LLN 6.74 L/E/sec [facility] ([facility]) Ayg9252-Mjxp 2.86 L/E/sec [facility] ([facility]) Wqn5232-%Pred-Pre 65 L/E/sec [facility] ([facility]) Nrm6878-UOH 1.17 L/E/sec [facility] ([facility]) ExpTime-Pre 6.35 sec [facility] ([facility]) Aqr2ibk1-Znjg 78 % [facility] ([facility]) Oqv5jgx2-Jmy 69 % [facility] ([facility]) Vmz9abi0-%Pred-Pre 88 % [facility] ([facility]) Yin0rmh0-LYW 69 % [facility] ([facility]) Procedure Social History Code Duration Value Status Description Data Source(s ) Alcohol intake 05/26/2021 12:00:00 AM EDT Current drinker of al cohol (finding) completed Current drinker of alcohol (finding) [facility] Tobacco use and exposure 05/26/2021 12:00:00 AM EDT Never used co mpleted Never used [facility] Smoking 05/26/2021 12:00:00 AM EDT Current every day smoker co mpleted Current every day smoker [facility] Smoking 03/31/2021 12:00:00 AM EDT Current Smoker completed Curre nt Smoker eCW1 ([facility]) Smoking 11/27/2020 12:00:00 AM EDT Current Smoker completed Curre nt Smoker eCW1 ([facility]) Smoking 11/27/2020 12:00:00 AM EDT Current Smoker completed Curre nt Smoker eCW1 ([facility]) Smoking 05/29/2020 12:00:00 AM EDT Current Smoker completed Curre nt Smoker eCW1 ([facility]) Smoking 05/29/2020 12:00:00 AM EDT Current Smoker completed Curre nt Smoker eCW1 ([facility]) Vital Signs ID Date Data Source UNK Name Value Range Interpretation Code Description Data Source(s) [place] body weight 178 [lb_av] 178 [lb_av] [facility] Body weight 87.998 kg 87.998 kg [facility] ([facility]) Body height 72 [in_i] 72 [in_i] [facility] ([facility]) 6'0" Body weight 194.00 [lb_av] 194.00 [lb_av] [facility] Body mass index (BMI) [Ratio] 26.3 kg/m2 26.3 k g/m2 [facility] ([facility]) Body surface area Derived from formula 2.10 m2 2.10 m2 [facility] ([facility]) Oxygen saturation in Arterial blood by Pulse oximetry 96 % 96 % [facility] ([facility]) Systolic blood pressure 122 mm[Hg] 122 mm[Hg] [facility] ([facility]) Diastolic blood pressure 82 mm[Hg] 82 mm[Hg] [facility] ([facility]) Heart rate 72 /min 72 /min [facility] ([facility]) Systolic blood pressure 118 mm[Hg] 118 mm[Hg] [facility] Diastolic blood pressure 72 mm[Hg] 72 mm[Hg] [facility] Heart rate 61 /min 61 /min [facility] Body height 182.9 cm 182.9 cm [facility] Body weight 87.544 kg 87.544 kg [facility] Body mass index (BMI) [Ratio] 26.18 kg/m2 26.18 kg/m2 [facility] Oxygen saturation in Arterial blood by Pulse oximetry 98 % 98 % [facility] Diastolic blood pressure 66 mm[Hg] 66 mm[Hg] [facility] ([facility]) Systolic blood pressure 124 mm[Hg] 124 mm[Hg] [facility] ([facility]) Body weight 87.091 kg 87.091 kg [facility] ([facility]) Body surface area Derived from formula 2.09 m2 2.09 m2 [facility] ([facility]) Body height 72 [in_i] 72 [in_i] [facility] ([facility]) 6'0" [place] body weight 178 [lb_av] 178 [lb_av] [facility] ([facility]) Body weight 192.00 [lb_av] 192.00 [lb_av] [facility] ([facility]) Body mass index (BMI) [Ratio] 26.0 kg/m2 26.0 k g/m2 [facility] ([facility]) Body mass index (BMI) [Ratio] 25.90 kg/m2 25.90 kg/m2 eCW1 ([facility]) Heart rate 70 /min 70 /min eCW1 ([facility]) Respiratory rate 20 /min 20 /min eCW1 ([facility]) Body temperature 97.2 [degF] 97.2 [degF] eCW1 ( [facility]) Systolic blood pressure 110 mm[Hg] 110 mm[Hg] e CW1 ([facility]) Diastolic blood pressure 64 mm[Hg] 64 mm[Hg] eCW1 ([facility]) Body weight 191 [lb_av] 191 [lb_av] eCW1 ([facility]) Body height 72 [in_i] 72 [in_i] eCW1 ([facility]placed by [facility]) Systolic blood pressure 120 mm[Hg] 120 mm[Hg] e CW1 ([facility]) Body weight 196 [lb_av] 196 [lb_av] eCW1 ([facility]) Body height 72 [in_i] 72 [in_i] eCW1 ([facility]placed by [facility]) Body mass index (BMI) [Ratio] 26.58 kg/m2 26.58 kg/m2 eCW1 ([facility]) Heart rate 70 /min 70 /min eCW1 ([facility]) Respiratory rate 20 /min 20 /min eCW1 ([facility]) Body temperature 97.4 [degF] 97.4 [degF] eCW1 ( [facility]) Diastolic blood pressure 60 mm[Hg] 60 mm[Hg] eCW1 ([facility]) Body height 72 [in_i] 72 [in_i] [facility] ([facility]) 6'0" Body weight 199.00 [lb_av] 199.00 [lb_av] [facility] T ([facility]) Body mass index (BMI) [Ratio] 27.0 kg/m2 27.0 k g/m2 [facility] ([facility]) [place] body weight 178 [lb_av] 178 [lb_av] [facility] ([facility]) Body weight 90.266 kg 90.266 kg [facility] ([facility]) Body surface area Derived from formula 2.13 m2 2.13 m2 [facility] ([facility]) Systolic blood pressure 101 mm[Hg] 101 mm[facility]Hg] [facility] Diastolic blood pressure 64 mm[Hg] 64 mm[Hg] [facility] ([facility]) Body height 72 [in_i] 72 [in_i] [facility] ([facility]) 6'0" Body weight 199.00 [lb_av] 199.00 [lb_av] [facility] ([facility]) Body mass index (BMI) [Ratio] 27.0 kg/m2 27.0 k g/m2 [facility] ([facility]) [place] body weight 178 [lb_av] 178 [lb_av] [facility] T ([facility]) Body weight 90.266 kg 90.266 kg [facility] ([facility]) Body surface area Derived from formula 2.13 m2 2.13 m2 [facility] ([facility]) Systolic blood pressure 113 mm[Hg] 113 mm[Hg] M EDENT ([facility]) Diastolic blood pressure 65 mm[Hg] 65 mm[Hg] [facility] ([facility]) Body height 72 [in_i] 72 [in_i] [facility] ([facility]) 6'0" Body weight 195.00 [lb_av] 195.00 [lb_av] [facility] T ([facility]) Body mass index (BMI) [Ratio] 26.4 kg/m2 26.4 k g/m2 [facility] ([facility]) [place] body weight 178 [lb_av] 178 [lb_av] [facility] T ([facility]) Body weight 88.452 kg 88.452 kg [facility] ([facility]) Body surface area Derived from formula 2.11 m2 2.11 m2 [facility] ([facility]) Body weight 192 [lb_av] 192 [lb_av] eCW1 ([facility]) Body height 72 [in_i] 72 [in_i] eCW1 (Replaced by [facility]) Body mass index (BMI) [Ratio] 26.04 kg/m2 26.04 kg/m2 eCW1 ([facility]) Heart rate 70 /min 70 /min eCW1 ([facility]) Respiratory rate 20 /min 20 /min eCW1 ([facility]) Body temperature 97.1 [degF] 97.1 [degF] eCW1 ( [facility]) Systolic blood pressure 120 mm[Hg] 120 mm[Hg] e CW1 ([facility]) Diastolic blood pressure 60 mm[Hg] 60 mm[Hg] eCW1 ([facility]) Patient Treatment Plan of Care Planned Activity Planned Date Details Description Data Source (s) Omeprazole 20 MG Delayed Release Oral Capsule 05/17/2021 12:00:00 A M EDT [facility] Potassium Chloride 10 MEQ Extended Release Oral Tablet 05/17/2021 12:00:00 AM EDT [facility] carvedilol 25 MG Oral Tablet 05/17/2021 12:00:00 AM EDT [facility] Fosinopril Sodium 40 MG Oral Tablet 04/15/2021 12:00:00 AM EDT [facility] Ergocalciferol 65744 UNT Oral Capsule 04/15/2021 12:00:00 AM EDT [facility] atorvastatin 80 MG Oral Tablet 04/15/2021 12:00:00 AM EDT [facility]
--- OUTSIDE RECORDS SUMMARY | 2021-07-09 08:45 | CCD | Continuity of Care Document ---
Author Author Vinny CASTELLANOS MD Organization Unknown Address [address] [place] [address] Phone [phone] Care Team Providers Care Wharfinger Chief Name Role Phone Marlen Alfaro [facility] [phone] Problems Description No Active Problems Social History [...] every day Unknown Vitamin D (Ergocalciferol) 1.25mg ([address] [address]) Capsules 1 cap by mouth every [...] lb BMI (Body Mass Index) 26.3 kg/m2 [facility] Body Weight 178 lb Weight 87.998 kg BSA (Body Surface Area) 2.10 m2 03/31/2021 4:19pm BP Systolic 124 mmHg BP Diastolic 66 mmHg Height 72 inches 6'0" Weight 192.00 lb BMI (Body Mass Index) 26.0 kg/m2 [facility] Weight 178 lb Weight 87.091 kg [...] L Fev6-%Pred-Pre 97 L Fev6-LLN 3.70 L Slw2qab-Srlf 74 % Cbs4ddo-Swc 68 % Lfq6cgz-%Pred-Pre 91 % Tyl3rmj-HAG 65 % Vrd7nan-Kvbb 95 % Cpl8ted-Jtl 99 % Suf8zny-%Pred-Pre 104 % FEFMax-Pred 9.19 L/E/sec FEFMax-Pre 6.17 L/E/sec FEFMax-%Pred-Pre 67 L/E/sec FEFMax-LLN 6.74 L/E/sec Dey2902-Nzwd 2.86 L/E/sec Whc8257-Lid 1.89 L/E/sec Bwt8554-%Pred-Pre 65 L/E/sec Fop6576-GTG 1.17 L/E/sec ExpTime-Pre 6.35 sec Qxa8abk7-Lswc 78 % Bai0kmu1-Hws 69 % Hli9xwd9-%Pred-Pre 88 % Oly9liw0-WIK 69 % Procedures Description No Information Available Medical Devices Description No Information Available Encounters Description No Information Available Assessments Date Code Description Provider 03/31/2021 Z86.010 Personal history of colonic poly ps Abrahan Zaldivar MD 03/31/2021 Z12.11 Encounter for screening for tavares gnant neoplasm of colon Abrahan Zaldivar MD Plan of Treatment Future Appointment(s):* 07/09/2021 10:05 am - Abrahan Zaldivar MD at [facility] Functional Status Description No Information Available Mental Status Description No Information Available Referrals Refer to Reason for Referral Status Appt Macario Castellanos M.D. PULM EMPHYSEMA Scheduled 1 [facility] [address] [place], [place] [address] [phone]
[2021-07-09] MEDS ORDERED: propofoL 200 MG/20 ML VIAL As Ordered ONE ×2 (09:18→10:37)
[2021-07-09] MEDS ORDERED: LIDOCAINE 2% 100MG/5ML SDV (FOR ANES.) As Ordered ONE (09:18)
[2021-07-09] MEDS ORDERED: OM3/1CAP3 PO (09:31)
[2021-07-09] MEDS ORDERED: MAGN400T2 PO (09:31)
--- NOTE | 2021-07-09 11:02 | ROOR ---
Patient Name: Vinny Maria Procedure Date: 07/09/2021 10:15 AM Date of : 1955 Age: 66 Room: [facility] Gender: Male Note Status: Finalized Procedure: Colonoscopy Indications: High risk colon cancer surveillance: Personal history of colonic polyps Providers: Abrahan Burton MD Referring MD: TIFFANIE BEJARANO [facility] Phillip Requesting Provider: Medicines: Monitored Anesthesia Care Complications: No immediate complications. Procedure: Pre-Anesthesia Assessment: - The heart rate, respiratory rate, oxygen saturations, blood pressure, adequacy of pulmonary ventilation, and response to care were monitored throughout the procedure. The Colonoscope was introduced through the anus and advanced to 5 cm into the ileum. The colonoscopy was performed without difficulty. The patient tolerated the procedure well. The quality of the bowel preparation was adequate. Findings: The perianal and digital rectal examinations were normal. A single (solitary) twelve mm ulcer was found at the hepatic flexure. Biopsies were taken with a cold forceps for histology. -r/o ischemia/prep/NSAID, r/o IBD, r/o ulcerated adenoma Three sessile polyps were found in the sigmoid colon. The polyps were diminutive in size. These polyps were removed with a cold snare. Resection and retrieval were complete. Internal hemorrhoids were found during retroflexion. The hemorrhoids were moderate. Multiple medium-mouthed diverticula were found in the sigmoid colon. The exam was otherwise without abnormality on direct and retroflexion views. Impression: - A single 10 mm shallow mucosal ulceration at the hepatic flexure. Biopsied. - Three diminutive polyps in the sigmoid colon, removed with a cold snare. Resected and retrieved. - Internal hemorrhoids. - Diverticulosis in the sigmoid colon. - The examination of the colon and terminal ileum was otherwise normal on direct and retroflexion views. Recommendation: - Telephone endoscopist for pathology results in 2 weeks. - Repeat colonoscopy date to be determined after pending pathology results are reviewed for surveillance based on pathology results. Procedure Code(s): --- Professional --- 39270, Colonoscopy, flexible; with removal of tumor(s), polyp(s), or other lesion(s) by snare technique 10450, 59, Colonoscopy, flexible; with biopsy, single or multiple Diagnosis Code(s): --- Professional --- Z86.010, Personal history of colonic polyps K63.3, Ulcer of intestine K63.5, Polyp of colon K64.8, Other hemorrhoids K57.30, Diverticulosis of large intestine without perforation or abscess without bleeding CPT copyright 2019 [employer]. All rights reserved. The codes documented in this report are preliminary and upon folder gluer operator review may be revised to meet current compliance requirements. Abrahan Burton MD Abrahan Burton MD 07/09/2021 11:02:31 AM Electronically signed by Abrahan Burton MD Number of Addenda: 0 Note Initiated On: 07/09/2021 10:15 AM Estimated Blood Loss: Estimated blood loss: none.
[2021-07-09 11:15] VITALS: BP 133/68
== END 2021-07-09 11:28 | disposition home or self-care (01) ==
LOC: M OPP 08:41
PROVIDERS: ATTEND Internal Medicine Gastroenterology
DX: Z12.11 Encounter for screening for malignant neoplasm of colon (principal); Z86.010 Personal history of colon polyps; K63.3 Ulcer of intestine; K63.5 Polyp of colon; K57.30 Diverticulosis of large intestine without perforation or abscess without bleeding; K64.8 Other hemorrhoids; I71.4 Abdominal aortic aneurysm, without rupture; Z79.82 Long term (current) use of aspirin; Z79.899 Other long term (current) drug therapy; F17.210 Nicotine dependence, cigarettes, uncomplicated; Z80.3 Family history of malignant neoplasm of breast; Z80.8 Family history of malignant neoplasm of other organs or systems

== ENCOUNTER → 2021-07-12 | Outpatient (CLI) | payer BC ==
[~2021-07-12] MED LIST changes: +MAGN400T2 PO; -NS 1,000 ML IV ONE; +OM3/1CAP3 PO
--- NOTE | 2021-07-12 08:38 | REP ---
INDICATION: SMOKER COMPARISON: None. TECHNIQUE: Axial noncontrast images from the thoracic inlet to the upper abdomen using low-dose lung screening technique (LDCT). FINDINGS: Emphysematous changes along with mild scattered subpleural fibrosis and single perifissural 6 mm density adjacent to the right minor fissure (series 201; image 54) remains stable through 2018. No acute consolidation, new suspicious nodule or mass. No effusion. No pneumothorax. Tracheobronchial tree is patent. Mildly prominent mediastinal and hilar lymph nodes are unchanged compared with 2018. Atherosclerotic changes to the thoracic aorta and coronary arteries again noted. IMPRESSION: 1. Lung-RADS category 2. Stable findings. 2. Management recommendations include annual low-dose CT surveillance. <Electronically signed by Vincenzo Faria > 07/12/21 [id number]
== END ==
LOC: M RAD 07:03
PROVIDERS: ATTEND Internal Medicine Pulmonary Disease
DX: Z12.2 Encounter for screening for malignant neoplasm of respiratory organs (principal); F17.210 Nicotine dependence, cigarettes, uncomplicated

== ENCOUNTER → 2021-10-08 | Outpatient (CLI) | payer BC ==
[~2021-10-08] MED LIST changes: -CEFD1CAP8 PO; +CEFD300C41 PO; -FOSI40TA3 PO; +FOSI40TA59 PO
== END ==
LOC: M RAD 07:07
PROVIDERS: ATTEND Nurse Practitioner Adult Health
DX: I71.4 Abdominal aortic aneurysm, without rupture (principal)

== ENCOUNTER → 2022-09-08 | Outpatient (CLI) | payer BC | LOC: M RAD 06:52 | PROVIDERS: ATTEND Internal Medicine Pulmonary Disease | DX: Z12.2 Encounter for screening for malignant neoplasm of respiratory organs (principal); F17.218 Nicotine dependence, cigarettes, with other nicotine-induced disorders; R91.8 Other nonspecific abnormal finding of lung field ==

== ENCOUNTER → 2022-11-04 | Outpatient (CLI) | payer BC | LOC: M PLAIMG 08:27 | PROVIDERS: ATTEND Nurse Practitioner Adult Health | DX: I71.40 Abdominal aortic aneurysm, without rupture, unspecified (principal) ==

== ENCOUNTER → 2023-06-06 | Outpatient (CLI) | payer BC ==
[~2023-06-06] MED LIST changes: -CEFD300C41 PO; +CEFD300C42 PO; -K-TA10TA2 PO; +POTA-165 PO
[2023-06-06 11:10] LABS: ALBUMIN 3.6 G/DL (3.2-5.2); ALKALINE PHOSPHATASE 99 U/L (46-116); ALT/SGPT 25 U/L (7.0-40); AST/SGOT 19 U/L (<34); BILIRUBIN,TOTAL 0.5 MG/DL (0.3-1.2); BLOOD UREA NITROGEN 17 MG/DL (9-23); CALCIUM LEVEL 9.1 MG/DL (8.3-10.6); CARBON DIOXIDE LEVEL 31 MMOL/L (20-31); CHLORIDE LEVEL 100 MMOL/L (98-107); CHOLESTEROL LEVEL 129 MG/DL (<200); CHOLESTEROL RISK RATIO 4.83 (<5); CREATININE FOR GFR 0.78 MG/DL (0.70-1.30); GLOMERULAR FILTRATION RATE > 60.0 (>49); GLUCOSE, FASTING 112 MG/DL (74-106); HDL CHOLESTEROL 26.7 MG/DL (>40); LDL CHOLESTEROL 54.7 MG/DL (<100); NON-HDL-C 102.3 MG/DL; POTASSIUM SERUM 3.5 MMOL/L (3.5-5.1); SODIUM LEVEL 138 MMOL/L (136-145); TOTAL 25(OH) VITAMIN D 54.1 NG/ML (20.0-100.0); TOTAL PROTEIN 7.6 G/DL (5.7-8.2); TRIGLYCERIDES LEVEL 238 MG/DL (<150)
[2023-06-06 11:29] LABS: HEMATOCRIT 45.1 % (42.0-52.0); HEMOGLOBIN 14.9 g/dl (13.5-17.5); MEAN CORPUSCULAR HEMOGLOBIN 31.5 pg (27.0-33.0); MEAN CORPUSCULAR VOLUME 95.3 fl (80.0-96.0); PLATELET COUNT, AUTOMATED 284 10^3/uL (150-450); RED BLOOD COUNT 4.73 10^6/uL (4.30-6.10); WHITE BLOOD COUNT 7.9 10^3/uL (4.0-10.0)
[2023-06-06 11:40] LABS: HEMOGLOBIN A1c 5.6 % (4.0-6.0)
== END ==
LOC: M PLALAB 06:59
PROVIDERS: ATTEND Nurse Practitioner Adult Health
DX: E55.9 Vitamin D deficiency, unspecified (principal); D64.9 Anemia, unspecified; I10 Essential (primary) hypertension; R73.03 Prediabetes; E78.2 Mixed hyperlipidemia

== ENCOUNTER → 2023-06-14 | Outpatient (CLI) | payer BC | LOC: M PLAIMG 10:57 | PROVIDERS: ATTEND Nurse Practitioner Family | DX: I71.43 Infrarenal abdominal aortic aneurysm, without rupture (principal); K76.0 Fatty (change of) liver, not elsewhere classified ==

== ENCOUNTER → 2023-07-28 | Outpatient (CLI) | payer BC ==
[~2023-07-28] MED LIST changes: +CEFD1CAP9 PO; -CEFD300C42 PO
[2023-07-28 12:30] LABS: BLOOD UREA NITROGEN 22 MG/DL (9-23); GLOMERULAR FILTRATION RATE > 60.0 (>49)
== END ==
LOC: M PLALAB 07:02
PROVIDERS: ATTEND Surgery Vascular Surgery
DX: I71.43 Infrarenal abdominal aortic aneurysm, without rupture (principal)

== ENCOUNTER → 2023-08-03 | Outpatient (CLI) | payer BC ==
[~2023-08-03] MED LIST changes: +ISOVUE-370 76% 100ML VIAL ONE
== END ==
LOC: M PLAIMG 12:53
PROVIDERS: ATTEND Surgery Vascular Surgery
DX: I71.43 Infrarenal abdominal aortic aneurysm, without rupture (principal); R16.0 Hepatomegaly, not elsewhere classified; K76.0 Fatty (change of) liver, not elsewhere classified; J43.8 Other emphysema
CPT/HCPCS: 74174; Q9967

== ENCOUNTER → 2023-11-03 | Outpatient (REF) | payer BC ==
[~2023-11-03] MED LIST changes: -ISOVUE-370 76% 100ML VIAL ONE
== END ==
LOC: M SFHCCLAY 17:04
PROVIDERS: ATTEND Physician Assistant
DX: R30.0 Dysuria (principal)

== ENCOUNTER → 2023-11-10 | Outpatient (CLI) | payer BC | LOC: M RAD 15:20 | PROVIDERS: ATTEND Internal Medicine Pulmonary Disease | DX: Z12.2 Encounter for screening for malignant neoplasm of respiratory organs (principal); F17.218 Nicotine dependence, cigarettes, with other nicotine-induced disorders; J47.9 Bronchiectasis, uncomplicated; R91.1 Solitary pulmonary nodule ==

== ENCOUNTER → 2023-12-26 | Outpatient (REF) | payer BC | LOC: M SFHCCLAY 16:27 | PROVIDERS: ATTEND Nurse Practitioner Family | DX: R39.15 Urgency of urination (principal) ==

== ENCOUNTER → 2024-02-20 | Outpatient (REF) | payer BC, MEDICARE ==
[2024-02-20 11:43] LABS: ALBUMIN 3.6 G/DL (3.2-5.2); ALKALINE PHOSPHATASE 110 U/L (46-116); ALT/SGPT 19 U/L (7.0-40); AST/SGOT 13 U/L (<34); BILIRUBIN,TOTAL 0.4 MG/DL (0.3-1.2); BLOOD UREA NITROGEN 19 MG/DL (9-23); CALCIUM LEVEL 9.2 MG/DL (8.3-10.6); CARBON DIOXIDE LEVEL 31 MMOL/L (20-31); CHLORIDE LEVEL 102 MMOL/L (98-107); CREATININE FOR GFR 0.89 MG/DL (0.70-1.30); GLOMERULAR FILTRATION RATE > 60.0 (>49); GLUCOSE, FASTING 102 MG/DL (74-106); POTASSIUM SERUM 4.2 MMOL/L (3.5-5.1); SODIUM LEVEL 136 MMOL/L (136-145); TOTAL PROTEIN 7.4 G/DL (5.7-8.2)
[2024-02-20 11:58] LABS: HEMOGLOBIN A1c 5.9 % (4.0-6.0)
== END ==
LOC: M SFHCCLAY 07:18
PROVIDERS: ATTEND Nurse Practitioner Family
DX: R73.03 Prediabetes (principal); Z12.5 Encounter for screening for malignant neoplasm of prostate
CPT/HCPCS: 80053; 83036; G0103

== ENCOUNTER → 2024-12-09 | Outpatient (CLI) | payer BC, MEDICARE ==
[~2024-12-09] MED LIST changes: -CLOT10TR MT; +CLOT10TR11 MT
== END ==
LOC: M RAD 06:26
PROVIDERS: ATTEND Internal Medicine Pulmonary Disease
DX: Z87.891 Personal history of nicotine dependence (principal)

== ENCOUNTER → 2025-04-07 | Outpatient (REF) | payer MEDICARE ==
[2025-04-07 18:00] LABS: BASO # 0.1 10^3/uL (0.0-0.2); BASO % 0.7 % (0.0-1.0); EOS # 0.3 10^3/uL (0.0-0.5); EOS % 3.4 % (0.0-3.0); LYMPH # 2.1 10^3/uL (1.5-5.0); LYMPH % 22.9 % (24.0-44.0); MONO # 0.9 10^3/uL (0.0-0.8); MONO % 9.4 % (2.0-8.0); NEUTROPHILS # 5.7 10^3/uL (1.5-8.5); NEUTROPHILS % 63.2 % (36.0-66.0); PLATELET COUNT, AUTOMATED 256 10^3/uL (150-450)
[2025-04-07 18:03] LABS: ALT/SGPT 17 U/L (7.0-40); AST/SGOT 23 U/L (<34); CALCIUM LEVEL 9.1 MG/DL (8.3-10.6); CARBON DIOXIDE LEVEL 32 MMOL/L (20-31); CHLORIDE LEVEL 99 MMOL/L (98-107); CHOLESTEROL LEVEL 107 MG/DL (<200); CHOLESTEROL RISK RATIO 4.08 (<5); CREATININE FOR GFR 0.77 MG/DL (0.70-1.30); GLOMERULAR FILTRATION RATE > 90.0 (>49); LDL CHOLESTEROL 34.4 MG/DL (<100); NON-HDL-C 80.8 MG/DL; POTASSIUM SERUM 3.9 MMOL/L (3.5-5.1); SODIUM LEVEL 137 MMOL/L (136-145); TRIGLYCERIDES LEVEL 232 MG/DL (<150)
[2025-04-07 18:06] LABS: FREE T4 1.00 NG/DL (0.89-1.76)
[2025-04-07 18:07] LABS: TOTAL 25(OH) VITAMIN D 69.0 NG/ML (20.0-100.0)
[2025-04-07 18:40] LABS: ESTIMATED AVERAGE GLUCOSE 131.0 MG/DL (60-110)
== END ==
LOC: M SFHCCLAY 10:26
PROVIDERS: ATTEND Nurse Practitioner Family
DX: R73.03 Prediabetes (principal); F41.1 Generalized anxiety disorder; E78.2 Mixed hyperlipidemia; I10 Essential (primary) hypertension; E55.9 Vitamin D deficiency, unspecified

== ENCOUNTER → 2025-05-21 | Outpatient (REF) | payer MEDICARE | LOC: M LABDRAWC 13:01 | PROVIDERS: ATTEND Physician Assistant | DX: Z12.5 Encounter for screening for malignant neoplasm of prostate (principal) | CPT/HCPCS: 36415; G0103 ==